=== PATIENT | male | born 1950 | race Caucasian/White ===

== ENCOUNTER 2017-02-05 06:17 | Outpatient (CLI) | payer MEDICARE ==
[~2017-02-05] VITALS: Ht 180.3 cm; Wt 90.7 kg
[~2017-02-05 06:17] MED LIST: ALLP300T PO; COLC0.6T7 PO; DIAZ10TA3 PO; ENAL5TAB PO; GBPN600T PO; GLYB5TAB6 PO; HYDR118S10 PO; METF-380 PO; MIRT15TA6 PO; NIAC100045 PO; PRAV80TA2 PO; SULF1TAB38 PO
== END 2017-02-05 10:40 ==
LOC: PREOP 06:17
PROVIDERS: ATTEND Surgery
DX: Z01.818 Encounter for other preprocedural examination (principal); R19.5 Other fecal abnormalities

== ENCOUNTER 2017-02-09 09:52 | Day surgery (SDC) | payer MEDICARE ==
[~2017-02-09] VITALS: Ht 180.3 cm; Wt 90.7 kg
[2017-02-09] MEDS ORDERED: NS IV 1000 ML 1,000 ML IV STA (10:02)
[2017-02-09] MEDS ORDERED: FLUMAZENIL (ROMAZICON) 0.1 MG/ML 5 ML VIAL INJ PRN (10:15)
[2017-02-09] MEDS ORDERED: NALOXONE 0.4 MG/ML 1 ML (NARCAN) VIAL IVP PRN (10:15)
[2017-02-09] MEDS ORDERED: ATOR10TA66 PO (10:34)
[2017-02-09] MEDS ORDERED: DULO60CA58 PO (10:34)
[2017-02-09] MEDS ORDERED: INSU100I29 SQ (10:34)
[2017-02-09] MEDS ORDERED: GLIM4TAB PO (10:38)
[2017-02-09] MEDS ORDERED: TAMS0.4C2 PO (10:38)
[2017-02-09] MEDS ORDERED: FENO145T20 PO (10:38)
[2017-02-09] MEDS ORDERED: DOXE25CA46 PO (10:38)
[2017-02-09] MEDS ORDERED: INSU100I14 SQ (10:42)
[2017-02-09 10:45] VITALS: BP 175/94
[2017-02-09] MEDS ORDERED: MIDAZOLAM 2 MG/2 ML (VERSED) VIAL ONE (11:06)
[2017-02-09] MEDS ORDERED: fentaNYL INJECTION 100 MCG/2 ML AMP ONE (11:06)
[2017-02-09] MEDS ORDERED: proPOfol 200 MG/20 ML (DIPRIVAN) VIAL IV ONE (11:06)
--- NOTE | 2017-02-09 11:16 | Progress Note-Pre Operative ---
Pre-Operative Progress Note H&P Reviewed The H&P was reviewed, patient examined and no changes noted. Date Seen by Provider: Feb 09, 2017 Time Seen by Provider: 11:15 Date H&P Reviewed: Feb 09, 2017 Time H&P Reviewed: 11:15 Pre-Operative Diagnosis: occult positive stool KRISTINA VITAL DO Feb 09, 2017 11:16 am
[2017-02-09] MEDS ORDERED: ESMOLOL 100 MG/10 ML (BREVIBLOC) VIAL ONE (11:32)
--- NOTE | 2017-02-09 12:08 | Discharge Inst-Simple/Standard ---
Discharge Inst-Standard Patient Instructions/Follow Up Plan of Care/Instructions/FU: Follow up with Dr. Jones in 2 weeks Repeat colonoscopy in 5 years or sooner if changes to current condition Activity as Tolerated: Yes Discharge Diet: No Restrictions GAYLE MORGAN APRN Feb 09, 2017 12:07
[2017-02-09 12:30] VITALS: BP 147/89
[2017-02-09 13:00] VITALS: BP 144/89
[2017-02-09 13:05] VITALS: BP 144/89
--- NOTE | 2017-02-09 13:13 | Progress Note-Post Operative ---
Post-Operative Progess Note Surgeon (s)/Patient Registration Manager (s) Surgeon KRISTINA VITAL DO Patient Registration Manager: na Pre-Operative Diagnosis occult positive stool Post-Operative Diagnosis colon polypx2 Procedure & Operative Findings Date of Procedure 02/09/17 Procedure Performed/Findings colonoscopy with hot bx polypectomy x 2 Anesthesia Type per mda Estimated Blood Loss Estimated blood loss (mL): none Specimens/Packing Specimens Removed ascending colon polyp and descending colon polyp KRISTINA VITAL DO Feb 09, 2017 1:13 pm
--- NOTE | 2017-02-09 20:40 | OPERATIVE REPORT ---
DATE OF SERVICE: 02/09/2017 PREOPERATIVE DIAGNOSIS: Occult positive stool. POSTOPERATIVE DIAGNOSIS: Colon polyps x2. PROCEDURE: Colonoscopy with hot biopsy polypectomy x 2. SURGEON: Kristina Jones DO ANESTHESIA: Per MDA. ESTIMATED BLOOD LOSS: None. COMPLICATIONS: None. SPECIMENS: Ascending and descending colon polyp. INDICATIONS: The patient is a 67-year-old male with recent occult positive stool test. He understood risks and benefits of procedure and wished to proceed with procedure. Consent was signed and on the chart. DESCRIPTION OF PROCEDURE: The patient was taken to endoscopy suite, placed in left lateral recumbent position. Timeout was performed. Digital rectal exam was performed. There were no palpable polyps, masses or ulcerations. Scope was inserted in the rectum, and advanced all the way to the cecum with minimal difficulty. The patient had to be repositioned multiple times in order to procedure due to colon. Once in the cecum, scope was then slowly retracted back. Prep was adequate with irrigation and suction. There were no polyps, masses or ulcerations of the cecum. Within the ascending colon was a small polyp which hot biopsy polypectomy was performed in the ascending colon. The scope was then continuously retracted back. There were no polyps, masses or ulcerations within the transverse colon. In the descending colon, a small polyp was present which hot biopsy polypectomy was performed. Scope was continued to be slowly retracted back. There were no polyps, masses or ulcerations in the sigmoid colon and in the rectum. The scope was also retroflexed in the rectum noting no other pathology. Scope was returned to its normal position, slowly withdrawn until completely removed. RECOMMENDATIONS: The patient will follow up in the office in 2 weeks to discuss pathology results. The patient will need repeat colonoscopy in 5 years. If he has any problems prior to that, he should be reevaluated at that time. Job ID: [id number] DocumentID: [id number] Dictated Date: 02/09/2017 13:16:06 Senior Data Warehouse Architect Date: 02/09/2017 20:01:30 Dictated By: KRISTINA JONES DO
== END 2017-02-09 13:05 | disposition home or self-care (01) ==
LOC: ENDO 09:52
PROVIDERS: ATTEND Surgery
DX: R19.5 Other fecal abnormalities (principal); D12.2 Benign neoplasm of ascending colon; D12.4 Benign neoplasm of descending colon; I10 Essential (primary) hypertension; E11.9 Type 2 diabetes mellitus without complications; Z79.4 Long term (current) use of insulin
CPT/HCPCS: 88305

== ENCOUNTER → 2018-01-10 | Outpatient (CLI) | payer MEDICARE ==
[~2018-01-10] MED LIST changes: +ATOR10TA66 PO; +DOXE25CA46 PO; +DULO60CA58 PO; +FENO145T37 PO; +GLIM4TAB PO; +INSU100I14 SQ; +INSU100I29 SQ; +TAMS0.4C2 PO
--- NOTE | 2018-01-10 11:59 | Diagnostic Imaging Report ---
PROCEDURE: MRI lumbar spine. TECHNIQUE: Multiplanar, multisequence MRI of the lumbar spine was performed without contrast. INDICATION: Low back pain. Comparison is made with prior MRI lumbar spine from 10/13/2007. There is some straightening of the normal lumbar lordotic curvature. Minimal retrolisthesis of L5 on S1 is noted. The vertebral body heights are maintained. No acute compression fracture or geographic marrow lesion is seen. The conus is unremarkable at the L1-2 level. There is significant degenerative disc disease at L5-S1 level with disc space narrowing and desiccation and marginal osteophyte formation. Mild desiccation is also seen at L3-4 level and L4-5 level with mild disc space narrowing. T12-L1: No central canal or neural foraminal stenosis is identified. L1-2: Unremarkable. L2-3: Unremarkable. L3-4: No central canal or neuroforaminal stenosis is identified. L4-5: There is broad-based disc/osteophyte complex flattening the ventral thecal sac. There also appears to be bilateral lateral recess narrowing, greatest on the right with mild bilateral neural foraminal stenosis. Very mild central canal narrowing is also seen. L5-S1: Broad-based disc/osteophyte complex is present producing significant narrowing of the lateral recesses bilaterally. Central canal is patent. Moderate bilateral neural foraminal stenosis is seen. Paraspinous tissues are unremarkable. IMPRESSION: Lower lumbar spondylosis with central canal, lateral recess and neural foraminal narrowing described level by level above. No acute compression fracture is detected. Dictated by: Dictated on workstation # [id number]
== END ==
LOC: RAD 09:59
PROVIDERS: ATTEND Family Medicine
DX: M48.061 Spinal stenosis, lumbar region without neurogenic claudication (principal); M99.73 Connective tissue and disc stenosis of intervertebral foramina of lumbar region; M51.37 Other intervertebral disc degeneration, lumbosacral region; M47.816 Spondylosis without myelopathy or radiculopathy, lumbar region
CPT/HCPCS: 72148

== ENCOUNTER → 2018-03-07 | Outpatient (CLI) | payer MEDICARE ==
--- NOTE | 2018-03-07 13:19 | Diagnostic Imaging Report ---
INDICATION: Cough. COMPARISON: None. FINDINGS: Two views of the chest are obtained. Heart size is normal. The pulmonary vessels appear unremarkable. There is no pneumothorax, mediastinal widening, or pleural fluid. A few scattered calcified granulomata are noted. The lungs are otherwise clear. The osseous structures appear unremarkable. IMPRESSION: No acute abnormality is demonstrated. Dictated by: Dictated on workstation # [id number]
== END ==
LOC: RAD 11:25
PROVIDERS: ATTEND Family Medicine
DX: R05 Cough (principal)
CPT/HCPCS: 71046

== ENCOUNTER → 2018-04-01 | Outpatient (CLI) | payer MEDICARE ==
--- NOTE | 2018-04-01 10:50 | Diagnostic Imaging Report ---
INDICATION: Status post fall with loss of consciousness and headache. TECHNIQUE: Noncontrast brain CT is performed. COMPARISON: There is no previous study for comparison. FINDINGS: There were no extra-axial fluid collections. No intracranial hemorrhage. No intracranial mass or mass effect. No midline shift. The ventricles are normal in size and position. Visualized portions of the orbits and sinuses are clear. There is no calvarial fracture. There is a prominent left parietal scalp hematoma. IMPRESSION: No acute intracranial abnormality. No calvarial fracture. Prominent left parietal scalp hematoma is noted. Dictated by: Dictated on workstation # [id number]
== END ==
LOC: RAD 10:31
PROVIDERS: ATTEND Family Medicine
DX: S00.03XA Contusion of scalp, initial encounter (principal); R55 Syncope and collapse; W19.XXXA Unspecified fall, initial encounter
CPT/HCPCS: 70450

== ENCOUNTER → 2018-10-12 | Outpatient (CLI) | payer MEDICARE ==
--- NOTE | 2018-10-12 11:55 | Diagnostic Imaging Report ---
PROCEDURE: US Bilateral lower extremity arterial. TECHNIQUE: Multiple real-time grayscale images are obtained through both lower extremity arterial systems with color Doppler imaging and color Doppler spectral analysis. INDICATION: Feet and toes turning blue. FINDINGS: Predominantly triphasic waveforms are identified in both lower extremity arterial systems with the exception of dorsalis pedis arteries which show biphasic flow. Velocities appear to be fairly symmetric bilaterally. No velocity elevation or stenosis is seen. There is no occlusion identified. IMPRESSION: Unremarkable bilateral lower extremity arterial Doppler. Dictated by: Dictated on workstation # [id number]
== END ==
LOC: RAD 08:52
PROVIDERS: ATTEND Family Medicine
DX: R23.0 Cyanosis (principal)
CPT/HCPCS: 93925

== ENCOUNTER → 2018-11-08 | Outpatient (CLI) | payer MEDICARE | LOC: CARD 09:19 | PROVIDERS: ATTEND Internal Medicine Cardiovascular Disease | DX: I10 Essential (primary) hypertension (principal); I77.9 Disorder of arteries and arterioles, unspecified; E11.9 Type 2 diabetes mellitus without complications; I73.9 Peripheral vascular disease, unspecified | CPT/HCPCS: 93306 ==

== ENCOUNTER 2018-11-16 07:45 | Day surgery (SDC) | payer MEDICARE ==
[2018-11-16] VITALS (10 sets, daily range): BP systolic 144–183; BP diastolic 77–94
[~2018-11-16] VITALS: Ht 182.9 cm; Wt 88.5 kg
[2018-11-16] MEDS ORDERED: LIDOCAINE 1% INJ 20 ML 20 ML VIAL ONE (07:53)
[2018-11-16] MEDS ORDERED: HEParin 1000 UNIT/ML (10ML VIAL) FOR BOLUS ONE (07:53)
[2018-11-16] MEDS ORDERED: NS IV 1000 ML 3,000 ML ONE (07:54)
[2018-11-16 08:45] LABS: HEMOGLOBIN 14.8 G/DL (13.3-17.7); MEAN PLATELET VOLUME 10.5 FL (7.4-10.4); RED CELL DISTRIBUTION WIDTH 12.9 % (10.0-14.5); WHITE BLOOD COUNT 5.9 10^3/uL (4.3-11.0)
[2018-11-16] MEDS ORDERED: NS IV 1000 ML 1,000 ML IV SCH ×2 (08:45→10:00)
[2018-11-16] MEDS ORDERED: MIDAZOLAM 5 MG/5 ML (VERSED) VIAL ONE (09:02)
[2018-11-16] MEDS ORDERED: fentaNYL INJECTION 100 MCG/2 ML AMP ONE (09:03)
[2018-11-16 09:15] LABS: ALANINE AMINOTRANSFERASE 73 U/L (0-55); ALBUMIN 4.5 GM/DL (3.2-4.5); ALKALINE PHOSPHATASE 79 U/L (40-136); BILIRUBIN,TOTAL 0.4 MG/DL (0.1-1.0); BUN/CREATININE RATIO 18; CALCIUM 9.4 MG/DL (8.5-10.1); CARBON DIOXIDE 24 MMOL/L (21-32); CHLORIDE 101 MMOL/L (98-107); CHOLESTEROL 137 MG/DL (< 200); CREATININE SERUM 1.13 MG/DL (0.60-1.30); GFR ESTIMATED > 60; GLUCOSE 311 MG/DL (70-105); HDL CHOLESTEROL 32 MG/DL (40-60); SODIUM 136 MMOL/L (135-145); TOTAL PROTEIN 6.9 GM/DL (6.4-8.2); TRIGLYCERIDES 302 MG/DL (<150); VLDL CHOLESTEROL 60 MG/DL (5-40)
[2018-11-16] MEDS ORDERED: CLOP75TA28 PO (09:21)
[2018-11-16] MEDS ORDERED: LOSA50TA63 PO (09:22)
[2018-11-16] MEDS ORDERED: ISOS30TA3 PO (09:22)
[2018-11-16] MEDS ORDERED: INSU100V5 SQ (09:22)
[2018-11-16] MEDS ORDERED: MULT-974 PO (09:23)
[2018-11-16] MEDS ORDERED: BUPR100T15 PO (09:23)
[2018-11-16] MEDS ORDERED: LORA10TA7 PO (09:23)
[2018-11-16] MEDS ORDERED: FINA5TAB6 PO (09:24)
[2018-11-16] MEDS ORDERED: VITA100C20 PO (09:25)
[2018-11-16] MEDS ORDERED: BIOT10005 PO (09:25)
[2018-11-16] MEDS ORDERED: NFBIOT1000 PO (09:25)
[2018-11-16] MEDS ORDERED: OMG1KC PO (09:26)
[2018-11-16] MEDS ORDERED: VITA-189 PO (09:26)
[2018-11-16] MEDS ORDERED: TRAZ-190 PO (09:27)
[2018-11-16] MEDS ORDERED: HYDR-3062 PO (09:27)
[2018-11-16] MEDS ORDERED: DOCU100C37 PO (09:28)
[2018-11-16] MEDS ORDERED: DULO60CA58 PO (09:28)
[2018-11-16] MEDS ORDERED: GABA-488 PO (09:29)
[2018-11-16] MEDS ORDERED: ASPI-586 PO (09:29)
--- NOTE | 2018-11-16 09:29 | Cardiac Procedure Note-CS/ASA ---
Pre-Procedure Note Pre-Op Procedure Note H&P Reviewed The H&P was reviewed, patient examined and no changes noted. Date H&P Reviewed: Nov 16, 2018 Time H&P Reviewed: 09:29 Conscious Sedation Pre-Proced Time 09:29 ASA Score 3 For ASA 3 and 4: Consider anesthesia and medical clearance. Also, for patients with a history of failed moderate sedation consider anesthesia. Airway Lungs Heart ASA score ASA 1: a normal healthy patient ASA 2: a patient with a mild systemic disease (mid diabetes, controlled hypertension, obesity x ASA 3: a patient with a severe systemic disease that limits activity (angina , COPD, prior Myocardial infarction) ASA 4: a patient with an incapacitating disease that is a constant threat to life (CHF, renal failure) ASA 5: a moribund patient not expected to survive 24 hrs. (ruptured aneurysm) ASA 6: a declared brain- patient whose organs are being harvested. For emergent operations, add the letter E after the classification Mallampati Classification Grade 3 Sedation Plan Analgesia, Amnesia, Plan communicated to team members, Discussed options with patient/fam, Discussed risks with patient/fam The patient is an appropriate candidate to undergo the planned procedure, sedation, and anesthesia. The patient immediately re-assessed prior to indication. DAGO FOREMAN MD Nov 16, 2018 09:29
--- NOTE | 2018-11-16 09:30 | Diagnostic Imaging Report ---
INDICATION: Hypertension. COMPARISON: 03/07/2018. FINDINGS: Single view of the chest demonstrate stable granulomas in both lung bases. The lungs are otherwise clear. The heart is normal. There is no pneumothorax. Osseous structures normal. IMPRESSION: Negative chest. Dictated by: Dictated on workstation # [id number]
--- NOTE | 2018-11-16 09:33 | NUR ---
Received patient medication list from Rn.
[2018-11-16] MEDS ORDERED: PATIENT MAY USE OWN MEDS, ALL PO SCH (10:00)
--- NOTE | 2018-11-16 10:02 | Discharge Inst-Post CATH ---
Discharge Inst-CATH/EP Post Cardiac Cath/EP D/C Inst Follow Up/Plan Appointment with Dr. Sofia's office in 2-4 weeks CARDIAC CATH DISCHARGE INSTRUCTIONS *Hold Metformin for 48 hours post heart cath. ACTIVITY * Go Home directly and rest. * Limit activity of the leg (or wrist if it was used) for 7 days including aerobics, swimming, jogging, bicycling, etc. * Restrict stair-climbing for 7 days if possible, if not, climb up with your non -cath leg, then bring together on the same step. * Avoid lifting, pushing, pulling or excessive movement of the affected extremity for 7 days. * Customary sexual activity may be resumed after 2 days-use caution not to use a position that strains or causes pain to the affected extremity. * No driving for 24 hours. * NO SMOKING. * Avoid straining for bowel movements for 7 days. * Gentle walking on level ground is allowed. * Returning to work will depend on the type of procedure and the results. Your doctor will discuss this with you. CALL YOUR DOCTOR FOR ANY OF THE FOLLOWING: *If bleeding from the puncture site occurs- Apply gentle pressure to site with clean cloth and call your doctor or EMS. * If a knot or lump forms under the skin, increases in size, or causes pain. * If bruising appears to be worsening or moving further down your leg instead of disappearing. * Temperature above 101 F. CARE OF YOUR GROIN INCISION; * Bruising or purple discoloration of the skin near the puncture site is common. * You may shower only, no bathtub bathing for 5 days. Be careful to avoid slipping as your leg may feel stiff. * If a closure device was used on your femoral artery, please see the attached guide regarding care of the device and your leg. * Leave the dressing on, until removed by office staff. CARE OF YOUR WRIST INCISION; * Bruising or purple discoloration of the skin near the puncture site is common. * You may shower. * DO NOT submerge wrist. * Leave dressing on, until removed by office staff.. DAGO SOFIA MD Nov 16, 2018 10:02
--- NOTE | 2018-11-16 10:07 | Peripheral Report ---
Peripheral Report Physician (s)/Beauty Sales Consultant (s) Physician DAGO FOREMAN MD Pre-Procedure Diagnosis Pre-Procedure Diagnosis: gangrene on the foot, peripheral arterial disease Post-Procedure Note Procedure Start Date: Nov 16, 2018 Name of Procedure: Abdominal aortogram Bilateral lower extremities runoff First order Findings/Procedure Note PROCEDURE NOTE: 68 years old gentleman with history of gangrene on his feet, had ROMA did not show significant abnormality but the waveforms were abnormal, decided to proceed with peripheral angiogram and evaluate his peripheral anatomy After explaining the procedure to the patient, all pros and cons were explained , all questions were answered. The patient signed the consent and then he was placed on the cardiac catheterization laboratory. The patient was placed on the cardiac catheterization laboratory. Groin was prepped SL fashion local anesthesia was used. Sheath placed in the right femoral artery, runoff to the right lower extremity was done through the sheath and pigtail catheter was advanced to the abdominal aorta and abdominal aortogram was done. I advanced a long stork wire through the detailed catheter and exchanged the pigtail catheter into a long straight catheter placed in the left common iliac artery and runoff to the left lower extremity was done. At the end of the procedure sheath was removed, closure device was used FINDINGS: Abdominal aortogram: Normal abdominal aorta, renal arteries are normal, superior and inferior mesenteric arteries are normal, bifurcation is normal Right leg runoff: slow flow, there is no obstructive disease down to the trifurcation, below the trifurcation arteries are smaller with no significant obstructive disease Left leg runoff: Mild disease with good flow down to the foot, there is no significant obstructive disease noted CONCLUSIONS: 1. No significant obstructive disease in his peripheral anatomy, slow flow probably due to small vessel disease nonobstructive disease 2. Normal abdominal aorta 3. Normal renal arteries and mesenteric arteries DISCUSSION AND RECOMMENDATIONS: Medical therapy and conservative management is recommended Anesthesia Type: Conscious Sedation Estimated blood loss (mL): 10 ml Contrast Amount: 23 ml Total Radiation Dose: 162 mGy Post-Procedure Diagnosis Post-operative diagnosis: Gangrene of the foot Peripheral arterial disease Hypertension Hyperlipidemia DAGO FOREMAN MD Nov 16, 2018 10:07
== END 2018-11-16 14:35 | disposition home or self-care (01) ==
LOC: CATH 07:45 → SDC 10:47 → CATH 14:35
PROVIDERS: ATTEND Internal Medicine Cardiovascular Disease
DX: E11.52 Type 2 diabetes mellitus with diabetic peripheral angiopathy with gangrene (principal); I73.9 Peripheral vascular disease, unspecified; I10 Essential (primary) hypertension; E78.5 Hyperlipidemia, unspecified; E11.40 Type 2 diabetes mellitus with diabetic neuropathy, unspecified; Z79.82 Long term (current) use of aspirin; Z79.01 Long term (current) use of anticoagulants
CPT/HCPCS: 36415; 71045; 75630; 80053; 80061; 85027; 85730; 87081; 93005

== ENCOUNTER 2019-04-28 17:33 | Emergency (ER) | payer MEDICARE ==
[~2019-04-28] VITALS: Ht 182.9 cm; Wt 88.5 kg
[~2019-04-28 17:33] MED LIST changes: +ASPI-586 PO; +BIOT10005 PO; +BUPR100T15 PO; +CLOP75TA28 PO; +DOCU100C37 PO; -DULO60CA58 PO; +DULO60CA59 PO; +FINA5TAB6 PO; +GABA-488 PO; +HYDR-3062 PO; +INSU100V5 SQ; +ISOS30TA3 PO; +LORA10TA7 PO; +LOSA50TA63 PO; +MULT-974 PO; +NFBIOT1000 PO; +OMG1KC PO; +TRAZ-190 PO; +VITA-189 PO; +VITA100C20 PO
--- NOTE | 2019-04-28 18:19 | ED Upper Extremity ---
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 He was working on vic upstairs when he slipped and has a sweat and cut the anterior right upper arm on some metal beam. Tetanus is not up-to-date. Onset: just prior to arrival Severity: moderate Pain/Injury Location: right arm Method of Injury: other (laceration) Allergies and Home Medications Allergies Coded Allergies: No Known Drug Allergies (Verified , 02/09/17) Home Medications Aspirin 81 Mg Tablet.dr, 81 MG PO DAILY, (Reported) Biotin 10,000 Mcg Capsule, 10,000 MCG PO DAILY, (Reported) Bupropion HCl 100 Mg Tablet, 100 MG PO DAILY, (Reported) Clopidogrel Bisulfate 75 Mg Tablet, 75 MG PO DAILY, (Reported) Docusate Sodium 100 Mg Capsule, 100 MG PO DAILY PRN for CONSTIPATION-1ST LINE, (Reported) Duloxetine HCl 60 Mg Capsule.dr, 120 MG PO DAILY, (Reported) Finasteride 5 Mg Tablet, 5 MG PO DAILY, (Reported) Gabapentin 300 Mg Capsule, 600 MG PO QID, (Reported) Hydrocodone/Acetaminophen 1 Each Tablet, 1 EACH PO Q8H PRN for PAIN-MODERATE, (Reported) Insulin Determir 1,000 Units/10 Ml Soln, 23 UNITS SQ HS, (Reported) Isosorbide Mononitrate 30 Mg Tab.er.24h, 30 MG PO DAILY, (Reported) Loratadine 10 Mg Tablet, 10 MG PO DAILY, (Reported) Losartan Potassium 50 Mg Tablet, 50 MG PO DAILY, (Reported) Multivitamin 1 Each Tablet, 1 EACH PO DAILY, (Reported) [place] 3 Polyunsat Fatty Acids 1,000 Mg Cap, 1,000 MG PO BID, (Reported) Tamsulosin HCl 0.4 Mg Cap.er.24h, 0.4 MG PO DAILY, (Reported) Trazodone HCl 100 Mg Tablet, 200 MG PO HS, (Reported) Vitamin B Complex 1 Each Tablet, 1 EACH PO DAILY, (Reported) Vitamin E (Dl,Tocopheryl Acet) 100 Unit Capsule, 100 UNIT PO DAILY, (Reported) Patient Home Medication List Home Medication List Reviewed: Yes Review of Systems Constitutional: see HPI EENTM: see HPI Respiratory: no symptoms reported Cardiovascular: no symptoms reported Genitourinary: no symptoms reported Musculoskeletal: no symptoms reported Skin: see HPI Psychiatric/Neurological: No Symptoms Reported Past Dhhjgua-Ywyzma-Zokhqt Hx Patient Social History Alcohol Use: Rarely Uses Recreational Drug Use: No Smoking Status: Never a Smoker 2nd Hand Smoke Exposure: No Recent Foreign Travel: No Contact w/Someone Who Travel: No Recent Infectious Disease Expo: No Recent Hopitalizations: No Immunizations Up To Date Tetanus Booster (TDap): More than 5yrs Date of Pneumonia Vaccine: Jun 08, 2016 Date of Influenza Vaccine: Jun 06, 2018 Seasonal Allergies Seasonal Allergies: Yes Past Medical History Surgeries: Yes Orthopedic Respiratory: No Currently Using CPAP: No Currently Using BIPAP: No Cardiac: Yes Hypertension Neurological: No Neuropathy Reproductive Disorders: No Sexually Transmitted Disease: No HIV/AIDS: No Genitourinary: No Prostate Problems Gastrointestinal: No Chronic Constipation Musculoskeletal: Yes Degenerate Disk Disease, Arthritis, Chronic Back Pain Endocrine: Yes Loss of Vision: Bilateral Hearing Impairment: Bilateral Hearing Aide Cancer: No Did You Recieve Any Treatments: No Psychosocial: Yes Anxiety, PTSD Integumentary: No Blood Disorders: No Adverse Reaction/Blood Tranf: No Physical Exam Vital Signs Vital Signs - First Documented 04/28/19 17:38 Temp 96.6 Pulse 93 Resp 18 B/P (MAP) 160/90 (113) Pulse Ox 97 Capillary Refill : Less Than 3 Seconds Height, Weight, BMI Height: 6'0" Weight: 195lbs. 0.0oz. [id number]; 26.5 BMI Method:Stated General Appearance: WD/WN, no apparent distress HEENT: PERRL/EOMI, normal ENT inspection Neck: non-tender, full range of motion Respiratory: no respiratory distress, no accessory muscle use Shoulder: normal inspection, non-tender Elbow/Forearm: Right, ecchymosis (to the anterior right upper arm there are 2 horizontally oriented superficial lacerations with mild oozing of blood. These measure about 5 cm in length each. Closed with Dermabond. There is an ecchymosis beneath this over the anterior aspect of the biceps.) Procedures/Interventions Wound Location: Upper Extremities Wound Length (cm): 10 Wound's Depth, Shape: linear Wound Explored: clean Other Closure Supply: Wound Adhesive Progress/Results/Core Measures Results/Orders My Orders Orders - MARICARMEN VALDEZ APRN Dipht,Pertuss(Acell),Tet Adult (Boostrix (04/28/19 18:30) Vital Signs/I&O 04/28/19 17:38 Temp 96.6 Pulse 93 Resp 18 B/P (MAP) 160/90 (113) Pulse Ox 97 Blood Pressure Mean: 113 Departure Impression Primary Impression: Laceration of arm Qualified Codes: S41.111A - Laceration without foreign body of right upper arm, initial encounter Disposition: 01 HOME, SELF-CARE Condition: Stable Departure-Patient Inst. Decision time for Depature: 18:21 Referrals: BRENDA FUENTSE DO (PCP/Family) Primary Care Physician Patient Instructions: Laceration Repair With Glue (DC) Add. Discharge Instructions: 1. Return to ER for any concerns 2. Keep an eye on this for any sign of infection such as redness swelling or fev ers. You can shower starting tonight leading water run over this but do not apply any petroleum-based products such as Vaseline and Neosporin or triple antibiotic appointment. All discharge instructions reviewed with patient and/or family. Voiced understanding. MARICARMEN VALDEZ APRN Apr 28, 2019 18:19
[2019-04-28] MEDS ORDERED: TETANUS,DIPTH,PERTUSS P/F (BOOSTRIX) 0.5 ML VIAL IM ONE (18:30)
[2019-04-28 18:34] VITALS: BP 160/90
== END 2019-04-28 18:36 | disposition home or self-care (01) ==
LOC: EDUNIT# 17:33 → ER 17:34
DX: S41.111A Laceration without foreign body of right upper arm, initial encounter (principal); S61.511A Laceration without foreign body of right wrist, initial encounter; I10 Essential (primary) hypertension; G62.9 Polyneuropathy, unspecified; F41.9 Anxiety disorder, unspecified; F43.10 Post-traumatic stress disorder, unspecified; Z87.19 Personal history of other diseases of the digestive system; Z79.82 Long term (current) use of aspirin; Z79.02 Long term (current) use of antithrombotics/antiplatelets; Z79.4 Long term (current) use of insulin; W01.110A Fall on same level from slipping, tripping and stumbling with subsequent striking against sharp glass, initial encounter
CPT/HCPCS: 90715

== ENCOUNTER → 2020-09-23 | Outpatient (CLI) | payer MEDICARE ==
[~2020-09-23] MED LIST changes: +ACHD5005 PO; +FENO145T26 PO; -FENO145T37 PO; -GLIM4TAB PO; +GLIM4TAB5 PO; -HYDR-3062 PO; -TRAZ-190 PO; +TRAZ-227 PO; -VITA100C20 PO; +VITA100C22 PO
--- NOTE | 2020-09-23 16:47 | Diagnostic Imaging Report ---
EXAMINATION: Cervical spine radiographs, 3 views. COMPARISON: None. HISTORY: 70-year-old male, neck pain. FINDINGS: There is grade 1 retrolisthesis of C4 on C5 and also of C5 on C6. There is mild disc height loss at C3-C4 and C4-C5. There is moderate disc height loss at C5-C6. There is no prominent prevertebral soft tissue swelling. The lateral masses of C2 are normally aligned relative to C1. There are predominantly anterior osteophytes at C3-C4, C4-C5, and C5-C6. There is no identified acute fracture of the cervical spine. IMPRESSION: Disc degenerative changes of the cervical spine, most notable at C3-C4, C4-C5, and C5-C6. Dictated by: Dictated on workstation # [id number]
== END ==
LOC: RAD 15:09
PROVIDERS: ATTEND Family Medicine
DX: M47.812 Spondylosis without myelopathy or radiculopathy, cervical region (principal)
CPT/HCPCS: 72040

== ENCOUNTER → 2021-01-07 | Outpatient (CLI) | payer MEDICARE ==
[~2021-01-07] MED LIST changes: -ISOS30TA3 PO; +ISOS30TA82 PO
--- NOTE | 2021-01-07 13:58 | Diagnostic Imaging Report ---
INDICATION: Chronic low back pain. FINDINGS: AP and lateral views of the lumbar spine show normal alignment. There are no compression fractures. There is disc space narrowing at L4-L5 and L5-S1 with vacuum disc phenomena present at L5-S1. IMPRESSION: Advanced degenerative disc changes at L5-S1. Moderate degenerative disc changes at L4-L5. Minimal degenerative disc changes at L3-L4. No acute abnormality is seen. Dictated by: Dictated on workstation # [id number]
== END ==
LOC: RAD 12:35
PROVIDERS: ATTEND Family Medicine
DX: M51.36 Other intervertebral disc degeneration, lumbar region (principal); M51.37 Other intervertebral disc degeneration, lumbosacral region
CPT/HCPCS: 72100

== ENCOUNTER → 2021-03-12 | Outpatient (CLI) | payer MEDICARE ==
--- NOTE | 2021-03-12 16:42 | Diagnostic Imaging Report ---
Indication: Chronic neck pain Comparison: 09/23/2020 Findings: 3 views of the cervical column demonstrate stable diffuse degenerative disc disease and facet arthropathy. There is no traumatic malalignment or fracture. No osseous lesion is seen. Prevertebral soft tissues are normal. Carotid artery calcifications are present. Impression: Stable diffuse degenerative disc disease and facet joint arthropathy. Dictated by: Dictated on workstation # [id number]
== END ==
LOC: RAD 14:55
PROVIDERS: ATTEND Family Medicine
DX: M47.812 Spondylosis without myelopathy or radiculopathy, cervical region (principal); M50.30 Other cervical disc degeneration, unspecified cervical region
CPT/HCPCS: 72040

== ENCOUNTER → 2021-06-05 | Outpatient (CLI) | payer MEDICARE ==
--- NOTE | 2021-06-05 13:12 | Diagnostic Imaging Report ---
Indication: Tenderness in the right breast. Correlation is made with prior mammogram to 10/03/2013. 2-D and 3-D unilateral right diagnostic mammography was performed with CAD. There is some mild fibroglandular tissue in the retroareolar right breast consistent with gynecomastia. Degree of gynecomastia has improved since the study from 2013. No discrete mass or malignant-appearing microcalcifications are seen. There are benign calcifications. The right axilla is unremarkable. IMPRESSION: BI-RADS 0 Mild gynecomastia, improved since the prior mammogram from 2013. No suspicious abnormality is seen. Directed sonographic interrogation of the area of tenderness is recommended and will be performed today. ACR BI-RADS Category 0: Incomplete. (Needs additional imaging evaluation). Result letter will be mailed to the patient. Note: At least 10% of breast cancer is not imaged by mammography. Dictated by: Dictated on workstation # [id number]
== END ==
LOC: RAD 12:13
PROVIDERS: ATTEND Family Medicine
DX: N63.10 Unspecified lump in the right breast, unspecified quadrant (principal); N62 Hypertrophy of breast
CPT/HCPCS: 77065; G0279

== ENCOUNTER → 2021-06-05 | Outpatient (CLI) | payer MEDICARE ==
--- NOTE | 2021-06-05 14:04 | Diagnostic Imaging Report ---
INDICATION: Right breast fullness. CORRELATION is made with diagnostic mammogram earlier same day. Sonographic interrogation of the right breast was performed. No sonographic abnormality is seen. No solid or cystic mass is detected. There is a small lymph node in the right axilla approximately 14 mm in size. IMPRESSION: BI-RADS Category 1 No sonographic abnormality is detected. ACR BI-RADS Category 1: Negative. Result letter will be mailed to the patient. Note: At least 10% of breast cancer is not imaged by mammography. Dictated by: Dictated on workstation # [id number]
== END ==
LOC: RAD 12:30
PROVIDERS: ATTEND Family Medicine
DX: N63.10 Unspecified lump in the right breast, unspecified quadrant (principal)
CPT/HCPCS: 76641

== ENCOUNTER → 2021-06-24 | Outpatient (CLI) | payer MEDICARE | LOC: CARD 10:59 | PROVIDERS: ATTEND Family Medicine | DX: I49.1 Atrial premature depolarization (principal); I45.10 Unspecified right bundle-branch block; I51.7 Cardiomegaly | CPT/HCPCS: 93005 ==

== ENCOUNTER → 2021-08-26 | Outpatient (CLI) | payer MEDICARE | LOC: CARD 13:30 | PROVIDERS: ATTEND Internal Medicine Cardiovascular Disease | DX: I11.9 Hypertensive heart disease without heart failure (principal) | CPT/HCPCS: 93306 ==

== ENCOUNTER → 2021-10-13 | Outpatient (CLI) | payer MEDICARE ==
[~2021-10-13] VITALS: Ht 182 cm; Wt 89.0 kg
[~2021-10-13] MED LIST changes: +REGADENOSON 0.4 MG/5 ML SYR (LEXISCAN) IV ONE
[2021-10-13] MEDS: CATHETER FLUSH 10 ML SYR IV PRN ×2 (07:54→09:29)
[2021-10-13 09:16] VITALS: BP 156/83
--- NOTE | 2021-10-13 12:09 | Cardiology Stress Test Report ---
Stress Test Report Date of Procedure/Referring: Date of Procedure: Oct 13, 2021 PCP Dago Sofia MD Admitting Physician Odell Castillo DO Indications: HTN Baseline Heart Rate: 68 Baseline Blood Pressure: Blood Pressure Systolic: 156 Blood Pressure Diastolic: 83 Baseline Vitals Vital Signs Date Time Temp Pulse Resp B/P (MAP) Pulse Ox O2 Delivery O2 Flow Rate FiO2 10/13/21 09:16 61 18 156/83 (107) 95 Room Air Baseline EKG: Baseline EKG: RBBB Summary After explaining the procedure to the patient, he signed a consent and then brought to the stress nuclear laboratory. Patient received 0.4 mg Lexiscan for stress test, ECG, heart rate and blood pressure were monitored continuously. Resting and stress dose of radio tracer were injected, imaging was acquired and reviewed in short axis, horizontal long axis and vertical long axis views. TID: 1.36 SSS: 19 SDS: 5 EF: 46 1. Patient tolerated Lexiscan well 2. Fixed defect involving the whole anterior wall and anterolateral wall with small area of toby-infarct ischemia 3. Transient ischemic dilatation 1.36 4. Prominent left ventricle with hypokinesia at the anterior wall and anterior septum with ejection fraction 46% DAGO SOFIA MD Oct 13, 2021 12:09
== END ==
LOC: CARD 07:45
PROVIDERS: ATTEND Internal Medicine Cardiovascular Disease
DX: I11.9 Hypertensive heart disease without heart failure (principal); I25.89 Other forms of chronic ischemic heart disease
CPT/HCPCS: 78452; 93017; A9502

== ENCOUNTER 2021-11-05 11:00 | Day surgery (SDC) | payer MEDICARE ==
[2021-11-05] VITALS (8 sets, daily range): BP systolic 119–148; BP diastolic 69–89
[~2021-11-05] VITALS: Ht 182.9 cm; Wt 86.1 kg
[2021-11-05 10:00] LABS: BILIRUBIN,URINE NEGATIVE (NEGATIVE); CLARITY,URINE CLEAR; COLOR,URINE YELLOW; GLUCOSE, URINE (UA) 3+ (NEGATIVE); HEMATOCRIT 47 % (40-54); HEMOGLOBIN 16.1 g/dL (13.3-17.7); KETONES,URINE NEGATIVE (NEGATIVE); LEUKOCYTE ESTERASE ,URINE NEGATIVE (NEGATIVE); MEAN CORPUSCULAR HEMOGLOBIN 31 pg (25-34); MEAN CORPUSCULAR HGB CONC 34 g/dL (32-36); MEAN CORPUSCULAR VOLUME 91 fL (80-99); MEAN PLATELET VOLUME 9.9 fL (9.0-12.2); NITRITE,URINE NEGATIVE (NEGATIVE); PLATELET COUNT 225 10^3/uL (130-400); PROTEIN,URINE NEGATIVE (NEGATIVE); WHITE BLOOD COUNT 6.8 10^3/uL (4.3-11.0)
--- NOTE | 2021-11-05 10:03 | Diagnostic Imaging Report ---
INDICATION: Abn stress test, Abn, EKG, HTN, HLP, DM COMPARISON: 11/16/2018 FINDINGS: Single frontal view of the chest demonstrates normal heart size and pulmonary vascularity. The lungs are well aerated and clear. There is suggestion of 1.1 x 0.9 cm nodule within the lateral right lower lung. No large pleural effusion or pneumothorax is seen. The visualized osseous structures show no acute abnormalities. IMPRESSION: 1. No acute cardiopulmonary process. 2. Findings suspicious for pulmonary nodule in the right lung base. Followup CT chest is recommended. Dictated by: Dictated on workstation # [id number]
[2021-11-05 10:11] LABS: BACTERIA,URINE NEGATIVE /HPF
[2021-11-05 10:15] LABS: INR 1.1 (0.8-1.4); PROTHROMBIN TIME PATIENT 14.2 SEC (12.2-14.7)
[2021-11-05 10:22] LABS: ALANINE AMINOTRANSFERASE 24 U/L (0-55); ALBUMIN 4.6 GM/DL (3.2-4.5); ALKALINE PHOSPHATASE 101 U/L (40-136); BILIRUBIN,TOTAL 0.5 MG/DL (0.1-1.0); BUN/CREATININE RATIO 19; CALCIUM 9.4 MG/DL (8.5-10.1); CARBON DIOXIDE 20 MMOL/L (21-32); CHLORIDE 104 MMOL/L (98-107); CHOLESTEROL 186 MG/DL (< 200); CREATININE SERUM 1.51 MG/DL (0.60-1.30); GFR ESTIMATED 48; GLUCOSE 236 MG/DL (70-105); HDL CHOLESTEROL 31 MG/DL (40-60); POTASSIUM 4.5 MMOL/L (3.6-5.0); SODIUM 138 MMOL/L (135-145); TOTAL PROTEIN 7.7 GM/DL (6.4-8.2); TRIGLYCERIDES 245 MG/DL (<150); VLDL CHOLESTEROL 49 MG/DL (5-40)
[~2021-11-05 11:00] MED LIST changes: +HEParin (CATH LAB) 2,000 ML IV ONE; +LIDOCAINE 1% INJ 50 ML (XYLOCAINE) VIAL ONE; +NS IV 1000 ML 1,000 ML IV SCH; +NS IV 1000 ML 1,000 ML ONE; -REGADENOSON 0.4 MG/5 ML SYR (LEXISCAN) IV ONE
[2021-11-05] MEDS ORDERED: EMPA25TA PO (11:06)
[2021-11-05] MEDS ORDERED: INSU100I14 SQ ×2 (11:06)
[2021-11-05] MEDS ORDERED: ATOR20TA49 PO ×2 (11:06→12:27)
[2021-11-05] MEDS ORDERED: CYPR4TAB41 PO (11:06)
[2021-11-05] MEDS ORDERED: GABA300C PO (11:06)
[2021-11-05] MEDS ORDERED: METF-399 PO ×2 (11:06→12:26)
[2021-11-05] MEDS ORDERED: CYCL10TA25 PO (11:06)
[2021-11-05] MEDS ORDERED: VERAPAMIL 5 MG/2 ML (CALAN) VIAL IV ONE (11:36)
[2021-11-05] MEDS ORDERED: HEParin 1000 UNIT/ML (10ML VIAL) FOR BOLUS ONE (11:37)
[2021-11-05] MEDS ORDERED: fentaNYL INJ 100 MCG/2 ML AMP ONE (11:37)
[2021-11-05] MEDS ORDERED: NITRO DRIP 25000 MCG/D5W 250 ML IV ONE (11:37)
[2021-11-05] MEDS ORDERED: MIDAZOLAM 5 MG/5 ML (VERSED) VIAL ONE (11:37)
--- NOTE | 2021-11-05 12:27 | Discharge Inst-Post CATH ---
Discharge Inst-CATH/EP Problems Reviewed?: Yes Post Cardiac Cath/EP D/C Inst Follow Up/Plan Hold Metformin for [address] Sofia's office in 2 to 4 weeks <b>CARDIAC CATH/EP PROCEDURE DISCHARGE INSTRUCTIONS</b> ACTIVITY * Go Home directly and rest. * Limit activity of the leg (or wrist if it was used) for 7 days including aerobics, swimming, jogging, bicycling, etc. * Restrict stair-climbing for 7 days if possible, if not, climb up with your non-cath leg, then bring together on the same step. * Avoid lifting, pushing, pulling or excessive movement of the affected extremity for 7 days. * Customary sexual activity may be resumed after 2 days-use caution not to use a position that strains or causes pain to the affected extremity. * No driving for 24 hours. * NO SMOKING. * Avoid straining for bowel movements for 7 days. * Gentle walking on level ground is allowed. * Returning to work will depend on the type of procedure and the results. Your doctor will discuss this with you. CALL YOUR DOCTOR FOR ANY OF THE FOLLOWING: *If bleeding from the puncture site occurs- Apply gentle pressure to site with clean cloth and call your doctor or EMS. * If a knot or lump forms under the skin, increases in size, or causes pain. * If bruising appears to be worsening or moving further down your leg instead of disappearing. * Temperature above 101 F. CARE OF YOUR GROIN INCISION; * Bruising or purple discoloration of the skin near the puncture site is common. * You may shower only, no bathtub bathing for 5 days. Be careful to avoid slipping as your leg may feel stiff. * If a closure device was used on your femoral artery, please see the attached guide regarding care of the device and your leg. * Leave dressing on FOR 24 hours. CARE OF YOUR WRIST INCISION; * Bruising or purple discoloration of the skin near the puncture site is common. * You may shower. * DO NOT submerge wrist. * Leave dressing on FOR 24 hours. DAGO SOFIA MD Nov 05, 2021 12:27
--- NOTE | 2021-11-05 12:32 | Cardiac Cath Report ---
Cardiac Cath Report Physician (s)/Business Services Clerk (s) Physician DAGO FOREMAN MD Pre-Procedure Diagnosis Pre-Procedure Diagnosis: Coronary artery disease Post-Procedure Note Procedure Start Date: Nov 05, 2021 Name of Procedure: Left heart catheterization Findings/Procedure Note PROCEDURE NOTE: 71 years old gentleman with history of peripheral arterial disease, hypertension, hyperlipidemia and diabetes mellitus, had an abnormal stress test, scheduled for cardiac catheterization possible PTCA. After explaining the procedure to the patient, all pros and cons were explained, all questions were answered. The patient signed the consent and then he was placed on the cardiac catheterization laboratory. Groin was prepped SL fashion local anesthesia was used. Sheath placed in the right radial artery, Weston catheter was advanced to the left ventricular cavity, pressure was measured, pullback LV to aorta was done, engaged the right and left coronary system, angiogram was done. At the end of the procedure the sheath was removed. Vascular band was used FINDINGS: Hemodynamics LV 104/9, end-diastolic pressure of 9 Aorta 99/58 mean of 39 ANATOMY: Left Main is very short, almost separate ostium of the LAD and circumflex artery Left Anterior Descending is moderate in size, moderate stenosis at the distal LAD at the apex level. The first diagonal artery has moderate to severe stenosis, fairly small artery for intervention Left Circumflex is moderate in size, tortuous artery, the distal circumflex artery has severe stenosis, very small artery, the first obtuse marginal branch has moderate to severe stenosis at the midportion, very small artery. Right Coronary Artery has mild to moderate disease nonobstructive disease LV Gram was not done, pressure was measured CONCLUSION: 1. Moderate to severe distal circumflex artery, mid first obtuse marginal branch and proximal first diagonal artery, fairly small arteries not amendable to intervention 2. Otherwise mild to moderate disease nonobstructive disease 3. Normal left ventricular end-diastolic pressure DISCUSSION AND RECOMMENDATION: Patient was noted to be in atrial flutter during the procedure, started the procedure in sinus rhythm then at the end of the procedure he was in atrial flutter, he has history of palpitation. Stayed in atrial flutter. I will start him on Multaq and oral anticoagulation and planning to do electrical cardioversion in the morning if he did not convert back to sinus rhythm on his own. We discussed the possibility of referral for EP evaluation and ablation Anesthesia Type: Conscious Sedation Estimated blood loss (mL): 15 ml Contrast Amount: 30 ml Total Radiation Dose: 271 mGy Post-Procedure Diagnosis Post-operative diagnosis: Coronary artery disease Peripheral arterial disease Hypertension Hyperlipidemia Diabetes mellitus DAGO FOREMAN MD Nov 05, 2021 12:32
[2021-11-05] MEDS ORDERED: CLOP75TA69 PO (12:33)
[2021-11-05] MEDS: NS IV 1000 ML 1,000 ML IV SCH ×2 (12:40→20:59)
--- NOTE | 2021-11-05 12:40 | Conscious Sedation/ASA ---
Conscious Sedation Pre-Proced Time 10:00 ASA Score 3 For ASA 3 and 4: Consider anesthesia and medical clearance. Also, for patients with a history of failed moderate sedation consider anesthesia. Airway Lungs Heart ASA score ASA 1: a normal healthy patient ASA 2: a patient with a mild systemic disease (mid diabetes, controlled hypertension, obesity x ASA 3: a patient with a severe systemic disease that limits activity (angina, COPD, prior Myocardial infarction) ASA 4: a patient with an incapacitating disease that is a constant threat to life (CHF, renal failure) ASA 5: a moribund patient not expected to survive 24 hrs. (ruptured aneurysm) ASA 6: a declared brain- patient whose organs are being harvested. For emergent operations, add the letter E after the classification Mallampati Classification Grade 3 Sedation Plan Analgesia, Amnesia, Plan communicated to team members, Discussed options with patient/fam, Discussed risks with patient/fam The patient is an appropriate candidate to undergo the planned procedure, sedation, and anesthesia. The patient immediately re-assessed prior to indication. DAGO FOREMAN MD Nov 05, 2021 12:40
[2021-11-05] MEDS ORDERED: DOCUSATE SODIUM 100 MG (COLACE) CAP PO PRN (14:45)
[2021-11-05] MEDS: DRONEDARONE 400 MG TABLET PO SCH ×2 (16:23→20:58)
[2021-11-05] MEDS: ENOXAPARIN 100 MG/1 ML (LOVENOX) SYR SC SCH (16:23)
[2021-11-05] MEDS: HYDROcodone/APAP 5 MG/325 MG (LORTAB) TAB PO PRN (16:31)
[2021-11-05] MEDS ORDERED: CYCLOBENZAPRINE 10 MG (FLEXERIL) TAB PO PRN (17:15)
[2021-11-05] MEDS ORDERED: inSUlin ASPART (NovoLOG) 1 UNIT/0.01 ML (CHARGE PER UNIT) SC SCH (18:00)
--- NOTE | 2021-11-05 18:22 | Tele-ICU Progress Note ---
Progress Note Video assessment done , Hemodynamically stable Available charting reviewed NO TELE-ICU CONSULT REQUESTED CONTINUE TO MONITOR PER USUAL TELE-ICU PROTOCOL No need for Tele-ICU interventions Plans as delineated by bedside physicians / consultants Focused Exam Height, Weight, BMI Height: 6'0" Weight: 195lbs. 0.0oz. [id number]; 26.81 BMI Method:Stated HOANG ARANDA MD Nov 05, 2021 18:22
[2021-11-05] MEDS: CYPROHEPTADINE (PERIACTIN) 4 MG TAB PO SCH ×3 (20:58→21:54)
[2021-11-05] MEDS: OMEGA 3 (FISH OIL) 1000 MG CAP PO SCH (20:58)
[2021-11-05] MEDS ORDERED: traZODone 100 MG (DESYREL) TAB PO SCH (21:00)
[2021-11-05] MEDS ORDERED: GABAPENTIN 300 MG (NEURONTIN) CAP PO SCH (21:00)
[2021-11-05] MEDS ORDERED: NON-FORMULARY MEDICATION 1 EA EA (Insulin Aspart (Novolog Flexpen) 12 UNITS) SQ SCH (21:00)
[2021-11-05] MEDS ORDERED: traZODone 50 MG (DESYREL) TAB ONE (21:06)
[2021-11-05] MEDS ORDERED: traZODone 150 MG (DESYREL) TABLET ONE (21:06)
[2021-11-06] MEDS: HYDROcodone/APAP 5 MG/325 MG (LORTAB) TAB PO PRN (00:41)
[2021-11-06] MEDS: ENOXAPARIN 100 MG/1 ML (LOVENOX) SYR SC SCH (03:36)
[2021-11-06 04:39] LABS: BASOPHILS % (AUTO) 1 % (0-10); EOSINOPHILS # (AUTO) 0.1 10^3/uL (0.0-0.3); EOSINOPHILS % (AUTO) 2 % (0-10); HEMATOCRIT 41 % (40-54); HEMOGLOBIN 13.7 g/dL (13.3-17.7); LYMPHOCYTES # (AUTO) 2.2 10^3/uL (1.0-4.0); LYMPHOCYTES % (AUTO) 38 % (12-44); MEAN CORPUSCULAR HEMOGLOBIN 31 pg (25-34); MEAN CORPUSCULAR HGB CONC 34 g/dL (32-36); MEAN CORPUSCULAR VOLUME 93 fL (80-99); MEAN PLATELET VOLUME 9.7 fL (9.0-12.2); MONOCYTES # (AUTO) 0.8 10^3/uL (0.0-1.0); MONOCYTES % (AUTO) 13 % (0-12); NEUTROPHILS # (AUTO) 2.5 10^3/uL (1.8-7.8); NEUTROPHILS % (AUTO) 44 % (42-75); PLATELET COUNT 196 10^3/uL (130-400); WHITE BLOOD COUNT 5.8 10^3/uL (4.3-11.0)
[2021-11-06 04:58] LABS: ALBUMIN 3.7 GM/DL (3.2-4.5); POTASSIUM 4.3 MMOL/L (3.6-5.0)
[2021-11-06 04:59] LABS: CALCIUM 9.1 MG/DL (8.5-10.1)
[2021-11-06 05:02] LABS: BILIRUBIN,TOTAL 0.3 MG/DL (0.1-1.0)
[2021-11-06 05:04] LABS: CREATININE SERUM 1.4 MG/DL (0.60-1.30); PHOSPHORUS 4.1 MG/DL (2.3-4.7)
[2021-11-06 05:07] LABS: MAGNESIUM 2.3 MG/DL (1.6-2.4)
[2021-11-06] MEDS ORDERED: MAGNESIUM 1 GM/100 ML IVPB 100 ML IV SCH (06:00)
[2021-11-06] MEDS ORDERED: KCL 20 MEQ TAB (K-DUR) PO SCH (06:00)
[2021-11-06] MEDS ORDERED: POTASSIUM CL 10MEQ/50ML IVPB 50 ML IV SCH (06:00)
[2021-11-06] MEDS ORDERED: MULTIVIT W/MINERALS TAB (THERAGRAN M) PO SCH (07:00)
[2021-11-06] MEDS ORDERED: inSUlin ASPART (NovoLOG) 1 UNIT/0.01 ML (CHARGE PER UNIT) SC SCH (07:00)
--- NOTE | 2021-11-06 07:50 | Cardiology Progress Note ---
Subjective Date Seen by Provider: Nov 06, 2021 Time Seen by Provider: 07:49 Subjective/Events-last exam Patient is laying down in bed, back to atrial flutter. Had multiple episodes of atrial fibrillation then sinus rhythm then atrial flutter then atrial fibrillation again. Review of Systems General: No Chills, No Night Sweats, No Fatigue, No Malaise, No Appetite, No Other HEENT: No Head Aches, No Visual Changes, No Eye Pain, No Ear Pain, No Dysphasia, No Sinus Congestion, No Post Nasal Drip, No Sore Throat, No Other Pulmonary: No Dyspnea, No Cough, No Pleuritic Chest Pain, No Other Cardiovascular: No: Chest Pain, Palpitations, Orthopnea, Paroxysmal Noc. Dyspnea, Edema, Lt Headedness, Other Objective-Cardiology Exam Last Set of Vital Signs Vital Signs 11/06/21 11/06/21 06:00 07:00 Pulse 75 Resp 12 B/P (MAP) 154/63 Pulse Ox 98 O2 Delivery Room Air I&O Intake and Output 11/06/21 00:00 Intake Total 550 ml Output Total 1450 ml Balance -900 ml Intake Oral 550 ml Output Urine Total 1450 ml Daily Weight Change No General: Alert, Oriented X3, Cooperative HEENT: Atraumatic, PERRLA Neck: Supple, No JVD, No Thyromegaly Lungs: Clear to Auscultation, Normal Air Movement Heart: Normal S1, Normal S2, No Murmurs, Other (Atrial flutter) Abdomen: Normal Bowel Sounds, Soft, No Tenderness, No Hepatosplenomegaly, No Masses Extremities: No Clubbing, No Cyanosis, No Edema, Normal Pulses, No Tenderness/Swelling Skin: No Rashes, No Breakdown, No Significant Lesion Neuro: Normal Gait, Normal Speech, Strength at 5/5 X4 Ext, Normal Tone, Sensation Intact Psych/Mental Status: Mental Status NL, Mood NL Results Lab Laboratory Tests 11/05/21 09:40 11/06/21 04:25 A/P-Cardiology Admission Diagnosis Coronary artery disease Paroxysmal atrial fibrillation Paroxysmal atrial flutter Hypertension Assessment/Plan Coronary artery disease, moderate to severe disease in smaller branches. Medical therapy is recommended Paroxysmal atrial fibrillation/flutter, had multiple episodes in and out of atrial fibrillation. I started him on Eliquis and Multaq and will follow up as an outpatient Palpitation, probably secondary to atrial fibrillation Transient episode of sinus bradycardia heart rate in the mid 40s at night, probably having underlying sleep apnea. Hyperlipidemia. DAGO FOREMAN MD Nov 06, 2021 07:50
[2021-11-06] MEDS ORDERED: DRON400T6 PO (07:52)
[2021-11-06] MEDS ORDERED: APIX5TAB PO (07:52)
[2021-11-06] MEDS: OMEGA 3 (FISH OIL) 1000 MG CAP PO SCH (08:43)
[2021-11-06] MEDS: DRONEDARONE 400 MG TABLET PO SCH (08:45)
[2021-11-06] MEDS ORDERED: NON-FORMULARY MEDICATION 1 EA EA (Empagliflozin (Jardiance) 25 MG) PO SCH (09:00)
[2021-11-06] MEDS ORDERED: BIOTIN PO SCH (09:00)
[2021-11-06] MEDS ORDERED: ASPIRIN E.C. 81 MG (ECOTRIN) TAB PO SCH (09:00)
[2021-11-06] MEDS ORDERED: NON-FORMULARY MEDICATION 1 EA EA (Insulin Aspart (Novolog Flexpen) 12 UNITS) SQ SCH (09:00)
[2021-11-06] MEDS ORDERED: NON-FORMULARY MEDICATION 1 EA EA (Duloxetine HCl 120 MG) PO SCH (09:00)
[2021-11-06] MEDS ORDERED: DULoxetine 30 MG (CYMBALTA) CAP PO SCH (09:00)
[2021-11-06] MEDS ORDERED: FINASTERIDE (PROSCAR) 5 MG TAB PO SCH (09:00)
[2021-11-06] MEDS ORDERED: EMPAGLIFLOZIN 10 MG TABLET (JARDIANCE) PO SCH (09:00)
[2021-11-06] MEDS ORDERED: LORATADINE (CLARITIN) 10 MG TAB PO SCH (09:00)
[2021-11-06] MEDS ORDERED: GABAPENTIN 300 MG (NEURONTIN) CAP PO SCH (09:00)
[2021-11-06] MEDS: NS IV 1000 ML 1,000 ML IV SCH (09:23)
== END 2021-11-06 10:53 | disposition home or self-care (01) ==
LOC: CATH 11:00 → SDC 12:52 → ICU 15:10 → CATH 11-06 10:53
PROVIDERS: ATTEND Internal Medicine Cardiovascular Disease
DX: I25.10 Atherosclerotic heart disease of native coronary artery without angina pectoris (principal); E11.51 Type 2 diabetes mellitus with diabetic peripheral angiopathy without gangrene; I10 Essential (primary) hypertension; E78.5 Hyperlipidemia, unspecified; I65.29 Occlusion and stenosis of unspecified carotid artery; R42 Dizziness and giddiness; M54.50 Low back pain, unspecified; M25.669 Stiffness of unspecified knee, not elsewhere classified; M25.519 Pain in unspecified shoulder; Z79.891 Long term (current) use of opiate analgesic; Z79.82 Long term (current) use of aspirin; Z79.4 Long term (current) use of insulin; Z79.899 Other long term (current) drug therapy
CPT/HCPCS: 71045; 80053 ×2; 80061; 81000; 82947; 83735; 84100; 85025; 85027; 85610; 85730; 87081; 93005 ×2; 93458; C1894; 36415

== ENCOUNTER → 2021-11-28 | Outpatient (CLI) | payer MEDICARE ==
[~2021-11-28] MED LIST changes: +APIX5TAB PO; +ATOR20TA49 PO; +CLOP75TA69 PO; +CYCL10TA25 PO; +CYPR4TAB41 PO; +DRON400T6 PO; +EMPA25TA PO; +GABA300C PO; -HEParin (CATH LAB) 2,000 ML IV ONE; -LIDOCAINE 1% INJ 50 ML (XYLOCAINE) VIAL ONE; +METF-399 PO; -NS IV 1000 ML 1,000 ML IV SCH; -NS IV 1000 ML 1,000 ML ONE
[2021-11-28 09:15] LABS: CALCIUM 9.3 MG/DL (8.5-10.1); CREATININE SERUM 1.84 MG/DL (0.60-1.30); POTASSIUM 4.9 MMOL/L (3.6-5.0)
== END ==
LOC: LAB 08:36
PROVIDERS: ATTEND Family Medicine
DX: E11.9 Type 2 diabetes mellitus without complications (principal); N28.9 Disorder of kidney and ureter, unspecified
CPT/HCPCS: 36415; 80048

== ENCOUNTER → 2021-12-05 | Outpatient (CLI) | payer MEDICARE ==
[2021-12-05 10:13] LABS: POTASSIUM 4.7 MMOL/L (3.6-5.0)
[2021-12-05 10:14] LABS: CALCIUM 9.4 MG/DL (8.5-10.1)
[2021-12-05 10:18] LABS: CREATININE SERUM 1.46 MG/DL (0.60-1.30)
== END ==
LOC: LAB 09:44
PROVIDERS: ATTEND Family Medicine
DX: N28.9 Disorder of kidney and ureter, unspecified (principal)
CPT/HCPCS: 36415; 80048

== ENCOUNTER → 2021-12-12 | Outpatient (CLI) | payer MEDICARE ==
[2021-12-12 10:41] LABS: CALCIUM 9.6 MG/DL (8.5-10.1); CREATININE SERUM 1.14 MG/DL (0.60-1.30); POTASSIUM 4.6 MMOL/L (3.6-5.0)
== END ==
LOC: LAB 09:49
PROVIDERS: ATTEND Family Medicine
DX: N28.9 Disorder of kidney and ureter, unspecified (principal)
CPT/HCPCS: 36415; 80048

== ENCOUNTER → 2021-12-15 | Outpatient (CLI) | payer MEDICARE ==
[~2021-12-15] MED LIST changes: +CATHETER FLUSH 10 ML SYR IV PRN; +HOLD METFORMIN - RECEIVED CONTRAST 20 ML VIAL IV SCH; +IOHEXOL 350 MG/ML 100 ML (OMNIPAQUE 350) VIAL IV ONE; +NS 100 ML (IVPB) BAG IV ONE
--- NOTE | 2021-12-15 13:30 | Diagnostic Imaging Report ---
PROCEDURE: CT chest with contrast only. TECHNIQUE: Multiple contiguous axial images were obtained through the chest after administration of intravenous contrast. Auto Exposure Controls were utilized during the CT exam to meet ALARA standards for radiation dose reduction. INDICATION: Lung cancer. COMPARISON: I have no priors. FINDINGS: There are no findings of pulmonary edema or focal pneumonia. Some very mild right apical subpleural scarring laterally and posteriorly, chronic. There is no axillary, hilar, or mediastinal lymphadenopathy. The thoracic aorta is nonaneurysmal. There is extensive atherosclerotic vascular calcifications at the left subclavian takeoff as well as coronary artery atherosclerotic vascular calcifications. The aorta is nonaneurysmal. Circumscribed benign-appearing mass with central calcification and some peripheral fat composition in the right lower lobe lung at 11.2 x 8.5 mm. There is densely calcified juxtapleural granuloma in the right lower lobe anteroinferiorly. No suspicious lung mass. Some mild tracheobronchomegaly. Upper abdomen is nonacute. IMPRESSION: 1. Benign-appearing pulmonary nodules. Extensive atherosclerotic vascular calcifications without thoracic aneurysm. No lymphadenopathy, pneumonia, edema, or pleural fluid. 2. No acute-appearing abnormality. No findings to suggest lung cancer. Dictated by: Dictated on workstation # [id number]
== END ==
LOC: RAD 11:59
PROVIDERS: ATTEND Family Medicine
DX: R19.8 Other specified symptoms and signs involving the digestive system and abdomen (principal)
CPT/HCPCS: 71260

== ENCOUNTER → 2021-12-23 | Outpatient (CLI) | payer MEDICARE ==
[~2021-12-23] MED LIST changes: -CATHETER FLUSH 10 ML SYR IV PRN; -HOLD METFORMIN - RECEIVED CONTRAST 20 ML VIAL IV SCH; -IOHEXOL 350 MG/ML 100 ML (OMNIPAQUE 350) VIAL IV ONE; -NS 100 ML (IVPB) BAG IV ONE
--- NOTE | 2021-12-23 10:40 | Diagnostic Imaging Report ---
CLINICAL INDICATION: Patient with neck pain. EXAM: MRI of the cervical spine performed without IV contrast. Sequences include sagittal T2, sagittal T1, sagittal T2 fat-sat, and axial T2. COMPARISON: X-ray of the cervical spine dated 03/12/2021. FINDINGS: There is no acute cervical spine fracture. There are Modic type II degenerative signal changes involving the C4-C5 endplates. Limited visualization of the posterior fossa shows no significant abnormality. There is deformity of the cervical cord seen at the C3 through C6 level. There is no definite abnormal cord signal. There is no significant paraspinal soft tissue abnormality. There are hypertrophic spurs throughout the cervical spine and facet arthropathy. C1-C2: There are hypertrophic spurs involving the atlantoodontoid interval. There is no significant central canal narrowing. C2-C3: There is moderate left facet arthropathy/hypertrophy and mild right facet arthropathy. There is mild right neuroforaminal narrowing. There is no significant central canal or left neuroforaminal narrowing. C3-C4: There is a diffuse disk bulge with mild loss of disk space height. There are hypertrophic uncinate spurs and posterior disk spurs. There is moderate left facet arthropathy/hypertrophy and mild right facet arthropathy. There is moderate to severe central canal stenosis. There is severe bilateral neuroforaminal narrowing. C4-C5: There is a grade 1 retrolisthesis at C4-C5. There is a diffuse disk bulge with moderate loss of disk space height. There are hypertrophic posterior disk spurs and bilateral uncinate spurs. There is moderate left facet arthropathy and mild right facet arthropathy. There is severe central canal stenosis and severe bilateral neuroforaminal narrowing. C5-C6: There is a diffuse disk bulge and moderate loss of disk space height. There are hypertrophic spurs posteriorly and bilateral uncinate spurs. There is severe central canal stenosis and severe bilateral neuroforaminal narrowing. C6-C7: There are small posterior disk spurs. There is ligamentum flavum buckling and moderate bilateral facet arthropathy. There is moderate to severe central canal stenosis. There is mild to moderate right neuroforaminal narrowing and moderate to severe left neuroforaminal narrowing. C7-T1: Unremarkable. IMPRESSION: 1: There is no acute cervical spine fracture. 2: There is severe multilevel cervical spine degenerative disk disease as described above. Dictated by: Dictated on workstation # [id number]
== END ==
LOC: RAD 08:45
PROVIDERS: ATTEND Family Medicine
DX: M50.30 Other cervical disc degeneration, unspecified cervical region (principal)
CPT/HCPCS: 72141

== ENCOUNTER 2022-03-27 07:00 | Day surgery (SDC) | payer MEDICARE ==
[~2022-03-27] VITALS: Ht 182.9 cm; Wt 93.7 kg
[2022-03-27] MEDS ORDERED: NS IV 1000 ML 1,000 ML ONE (07:06)
[2022-03-27] MEDS ORDERED: NS IV 1000 ML 1,000 ML IV ONE (07:15)
[2022-03-27] MEDS ORDERED: APIX5TAB PO (07:29)
[2022-03-27 07:31] LABS: HEMATOCRIT 44 % (40-54); HEMOGLOBIN 14.5 g/dL (13.3-17.7); MEAN CORPUSCULAR HEMOGLOBIN 30 pg (25-34); MEAN CORPUSCULAR HGB CONC 33 g/dL (32-36); MEAN CORPUSCULAR VOLUME 92 fL (80-99); MEAN PLATELET VOLUME 10.1 fL (9.0-12.2); PLATELET COUNT 201 10^3/uL (130-400)
[2022-03-27 07:32] LABS: BILIRUBIN,URINE NEGATIVE (NEGATIVE); CLARITY,URINE CLEAR; COLOR,URINE YELLOW; GLUCOSE, URINE (UA) 3+ (NEGATIVE); KETONES,URINE NEGATIVE (NEGATIVE); LEUKOCYTE ESTERASE ,URINE NEGATIVE (NEGATIVE); NITRITE,URINE NEGATIVE (NEGATIVE); PROTEIN,URINE NEGATIVE (NEGATIVE)
[2022-03-27 07:40] LABS: BACTERIA,URINE NEGATIVE /HPF
[2022-03-27 07:43] LABS: INR 1.2 (0.8-1.4); PROTHROMBIN TIME PATIENT 15.9 SEC (12.2-14.7)
[2022-03-27] MEDS ORDERED: LIDO700A45 TP (07:44)
[2022-03-27] MEDS ORDERED: EMPA25TA PO (07:44)
[2022-03-27] MEDS ORDERED: ACHD5005 PO (07:44)
[2022-03-27] MEDS ORDERED: LORA10TA7 PO (07:44)
[2022-03-27] MEDS ORDERED: OMEGA-3 PO (07:44)
[2022-03-27] MEDS ORDERED: INSU100I14 SQ ×3 (07:44)
[2022-03-27] MEDS ORDERED: CLOP75TA69 PO (07:44)
[2022-03-27] MEDS ORDERED: CYPR4TAB41 PO (07:44)
[2022-03-27] MEDS ORDERED: MULT-1136 PO (07:44)
[2022-03-27] MEDS ORDERED: TMSL.4C PO (07:44)
[2022-03-27] MEDS ORDERED: FINA5TAB6 PO (07:44)
[2022-03-27] MEDS ORDERED: DULO60CA59 PO (07:44)
[2022-03-27] MEDS ORDERED: CYCL10TA25 PO (07:44)
[2022-03-27] MEDS ORDERED: ATOR20TA66 PO (07:44)
[2022-03-27] MEDS ORDERED: ASPI-1238 PO (07:44)
[2022-03-27] MEDS ORDERED: PANT40TA52 PO (07:44)
[2022-03-27] MEDS ORDERED: INSU100I29 SQ (07:44)
[2022-03-27] MEDS ORDERED: BIOT10005 PO (07:44)
[2022-03-27] MEDS ORDERED: GABA300C PO ×2 (07:44)
[2022-03-27] MEDS ORDERED: METF-479 PO (07:44)
[2022-03-27] MEDS ORDERED: DIPH25CA48 PO (07:44)
[2022-03-27] MEDS ORDERED: TRAZ-227 PO (07:44)
[2022-03-27 07:53] LABS: ALBUMIN 4.1 GM/DL (3.2-4.5); BILIRUBIN,TOTAL 0.3 MG/DL (0.1-1.0); CALCIUM 9.3 MG/DL (8.5-10.1); CREATININE SERUM 1.48 MG/DL (0.60-1.30); POTASSIUM 4.5 MMOL/L (3.6-5.0); TOTAL PROTEIN 6.8 GM/DL (6.4-8.2)
[2022-03-27] MEDS ORDERED: proPOfol 200 MG/20 ML (DIPRIVAN) VIAL IV ONE (08:15)
[2022-03-27 09:09] VITALS: BP 126/100
--- NOTE | 2022-03-27 09:09 | Conscious Sedation/ASA ---
Conscious Sedation Pre-Proced Time 09:09 ASA Score 3 For ASA 3 and 4: Consider anesthesia and medical clearance. Also, for patients with a history of failed moderate sedation consider anesthesia. Airway Lungs Heart ASA score ASA 1: a normal healthy patient ASA 2: a patient with a mild systemic disease (mid diabetes, controlled hypertension, obesity x ASA 3: a patient with a severe systemic disease that limits activity (angina, COPD, prior Myocardial infarction) ASA 4: a patient with an incapacitating disease that is a constant threat to life (CHF, renal failure) ASA 5: a moribund patient not expected to survive 24 hrs. (ruptured aneurysm) ASA 6: a declared brain- patient whose organs are being harvested. For emergent operations, add the letter E after the classification Mallampati Classification Grade 3 Sedation Plan Analgesia, Amnesia, Plan communicated to team members, Discussed options with patient/fam, Discussed risks with patient/fam The patient is an appropriate candidate to undergo the planned procedure, sedation, and anesthesia. The patient immediately re-assessed prior to indication. DAGO FOREMAN MD Mar 27, 2022 09:09
[2022-03-27 09:16] VITALS: BP 159/74
--- NOTE | 2022-03-27 09:21 | Anesthesia-General Post-Op ---
MAC Patient Condition Mental Status/LOC: Same as Preop Cardiovascular: Satisfactory Nausea/Vomiting: Absent Respiratory: Satisfactory Pain: Controlled Complications: Absent Post Op Complications Complications None Follow Up Care/Instructions Patient Instructions None needed. Anesthesiology Discharge Order Discharge Order Patient is doing well, no complaints, stable vital signs, no apparent adverse anesthesia problems. No complications reported per nursing. MARIE JACKSON CRNA Mar 27, 2022 09:21
[2022-03-27 09:26] VITALS: BP 119/67
[2022-03-27 09:45] VITALS: BP 130/76
[2022-03-27 10:00] VITALS: BP 133/80
--- NOTE | 2022-03-27 10:12 | Cardioversion ---
Cardioversion PROCEDURE PHYSICIAN: Dago Sofia DATE OF PROCEDURE: 03/27/22 DIRECT EXTERNAL ELECTRICAL CARDIOVERSION: Indications: Atrial flutter Preoperative diagnoses: Atrial flutter Postoperative diagnosis: Sinus rhythm, Successful Electrical Cardioversion History: 72-year-old gentleman with history of paroxysmal atrial fibrill ation/flutter, underwent ablation in January 2022, seen in the office back in atrial flutter. He was scheduled for electrical cardioversion Anesthesia: By Anesthesia services Complications: None Specimen: None Contrast: 0 Flouroscopy: none Procedure Details: The patient was brought the label drier after informed consent was taken, all the risks and complications were explained including the risk of stroke. Electrical cardioversion was carried out with anesthesia support with propofol. 120 joules of synchronized shock was delivered through external patches which promptly restored sinus rhythm. The patient tolerated the procedure well. Conclusions: Successful electrical cardioversion in terminating atrial flutter Final Diagnosis: Paroxysmal atrial fibrillation Paroxysmal atrial flutter Cardiac pacemaker Hypertension DAGO SOFIA MD Mar 27, 2022 10:12
[2022-03-27 10:15] VITALS: BP 136/72
[2022-03-27] MEDS ORDERED: APIXABAN 5 MG (ELIQUIS) TABLET PO ONE (10:15)
--- NOTE | 2022-03-27 10:26 | Discharge Inst-Post CATH ---
Discharge Inst-CATH/EP Problems Reviewed?: Yes Post Cardiac Cath/EP D/C Inst Follow Up/Plan Appointment with Dr. Sofia's office in 1 to 2 weeks <b>CARDIAC CATH/EP PROCEDURE DISCHARGE INSTRUCTIONS</b> ACTIVITY * Go Home directly and rest. * Limit activity of the leg (or wrist if it was used) for 7 days including aer obics, swimming, jogging, bicycling, etc. * Restrict stair-climbing for 7 days if possible, if not, climb up with your non-cath leg, then bring together on the same step. * Avoid lifting, pushing, pulling or excessive movement of the affected extremi ty for 7 days. * Customary sexual activity may be resumed after 2 days-use caution not to use a position that strains or causes pain to the affected extremity. * No driving for 24 hours. * NO SMOKING. * Avoid straining for bowel movements for 7 days. * Gentle walking on level ground is allowed. * Returning to work will depend on the type of procedure and the results. Your doctor will discuss this with you. CALL YOUR DOCTOR FOR ANY OF THE FOLLOWING: *If bleeding from the puncture site occurs- Apply gentle pressure to site with clean cloth and call your doctor or EMS. * If a knot or lump forms under the skin, increases in size, or causes pain. * If bruising appears to be worsening or moving further down your leg instead of disappearing. * Temperature above 101 F. CARE OF YOUR GROIN INCISION; * Bruising or purple discoloration of the skin near the puncture site is common. * You may shower only, no bathtub bathing for 5 days. Be careful to avoid slipping as your leg may feel stiff. * If a closure device was used on your femoral artery, please see the attached guide regarding care of the device and your leg. * Leave dressing on FOR 24 hours. CARE OF YOUR WRIST INCISION; * Bruising or purple discoloration of the skin near the puncture site is common. * You may shower. * DO NOT submerge wrist. * Leave dressing on FOR 24 hours. DAGO SOFIA MD Mar 27, 2022 10:26
== END 2022-03-27 10:43 | disposition home or self-care (01) ==
LOC: CATH 07:00
PROVIDERS: ATTEND Internal Medicine Cardiovascular Disease
DX: I48.92 Unspecified atrial flutter (principal); I48.0 Paroxysmal atrial fibrillation; I10 Essential (primary) hypertension; I25.10 Atherosclerotic heart disease of native coronary artery without angina pectoris; R00.1 Bradycardia, unspecified; E78.5 Hyperlipidemia, unspecified; E11.51 Type 2 diabetes mellitus with diabetic peripheral angiopathy without gangrene; I65.29 Occlusion and stenosis of unspecified carotid artery; M54.9 Dorsalgia, unspecified; M25.569 Pain in unspecified knee; M25.519 Pain in unspecified shoulder; R42 Dizziness and giddiness; Z28.310 Unvaccinated for COVID-19; Z95.0 Presence of cardiac pacemaker; Z85.118 Personal history of other malignant neoplasm of bronchus and lung; Z79.82 Long term (current) use of aspirin; Z79.4 Long term (current) use of insulin; Z79.84 Long term (current) use of oral hypoglycemic drugs; Z79.01 Long term (current) use of anticoagulants
CPT/HCPCS: 36415; 80053; 80061; 81000; 85027; 85610; 85730; 87081; 92960; 93005

== ENCOUNTER 2022-07-04 17:04 | Observation (INO) | payer MEDICARE ==
[~2022-07-04] VITALS: Ht 182.8 cm; Wt 89.2 kg
[~2022-07-04 17:04] MED LIST changes: +ASPI-1238 PO; +ATOR20TA66 PO; +DIPH25CA48 PO; +LIDO700A45 TP; +METF-479 PO; +MULT-1136 PO; +OMEGA-3 PO; +PANT40TA52 PO; +TMSL.4C PO
--- NOTE | 2022-07-04 18:37 | ED Syncope ---
General Chief Complaint: Dizziness/Syncope Stated Complaint: FALL Nursing Triage Note: PASSED OUT THIS AFTERNOON CAUSING A FALL HITTING THE BACK OF HIS HEAD. WAS HOME ALONE AT THE TIME. WOKE UP AND CALLED HIS . Source of Information: Patient, Spouse ( TRIES TO DO ALL TALKING FOR PT) History of Present Illness Date Seen by Provider: Jul 04, 2022 Time Seen by Provider: 18:12 Initial Comments PT ARRIVES VIA POV WITH --SENT HERE FROM [facility] PT WAS AT HOME BY HIMSELF THIS AFTERNOON AROUND 1500 ( HAD GONE TO THE STORE), AND WAS IN THE KITCHEN, AND GOT LIGHTHEADED AND PASSED OUT, HITTING THE BACK OF HIS HEAD ON THE FLOOR, AND HITTING HIS LEFT HAND AND WRIST ON THE COUNTER. DOES NOT KNOW HOW LONG HE WAS PASSED OUT, BUT THINKS IT WAS NOT FOR VERY LONG. STATES CALLED HIS WHEN HE CAME TO. THEY WENT TO [facility] AND HAD EKG DONE, AND GLUE WAS PLACED TO THE BACK OF HIS SCALP OVER THE WOUND, THEN SENT HERE PT STATES "I GET LIGHTHEADED EVERY NOW AND THEN AND SOMETIMES I PASS OUT" STATES HE GETS LIGHTHEADED FAIRLY OFTEN, BUT NORMALLY SITS DOWN AND PUTS HIS HEAD BETWEEN HIS KNEES UNTIL IT PASSES. HE HAS ACTUALLY PASSED OUT "2 OR 3 TIMES" IN THE PAST--HE NEVER SOUGHT CARE AFTER THOSE EPISODES OF SYNCOPE. DENIES FEELING LIGHTHEADED AT THIS TIME PT C/O MILD HEADACHE TO THE BACK OF HIS HEAD AND NECK. NO VISION CHANGES NO PARESTHESIAS OR MOTOR DEFICITS NO PALPITATIONS NO CHEST PAIN NO SHORTNESS OF BREATH NO SWEATS NO NAUSEA/VOMITING/DIARRHEA/ABDOMINAL PAIN NO URINARY SYMPTOMS NO FEVER'/SWEATS/CHILLS STATES HE HAS HAD MUCH "MALAISE" FOR THE LAST WEEK OR SO--NO ENERGY STATES HE HAS COUGHING AND CONGESTION IN THE MORNINGS. STATES THIS IS FAIRLY NORMAL FOR HIM PT IS NOT COVID OR FLU VACCINATED BOTH HE AND HAD COVID IN MID MARCH--HOME TEST WAS POSITIVE ON 04/10/22. DID NOT SEEK CARE, NO TREATMENT. PT HAS HISTORY OF ATRIAL FIBRILLATION/ATRIAL FLUTTER, AND IS ON PLAVIX. PT HAS HAD CARDIOVERSION, CARDIAC ABLATION, LOOP RECORDER AND NOW HAS A PACEMAKER PT IS ALSO INSULIN DEPENDENT DIABETIC. BLOOD SUGAR WAS CHECKED AT 1555 TODAY, AND WAS 98. PT HAS TAKEN ALL OF HIS MEDICATION TODAY, EXCEPT NIGHT TIME MEDICATIONS. Allergies and Home Medications Allergies Coded Allergies: No Known Drug Allergies (Verified , 02/09/17) Patient Home Medication List Apixaban (Eliquis) 5 Mg Tablet, 5 MG PO BID, (Reported) Entered as Reported by: CARLITOS MICHAEL on 03/27/22728 Aspirin (Aspirin EC) 81 Mg Tablet.dr, 81 MG PO DAILY, (Reported) Entered as Reported by: CARLITOS MICHAEL on 03/27/22743 Atorvastatin Calcium (Atorvastatin Calcium) 20 Mg Tablet, 20 MG PO EVENING, (Reported) Entered as Reported by: CARLITOS MICHAEL on 03/27/22743 Biotin (Biotin) 10,000 Mcg Capsule, 30,000 MCG PO DAILY, (Reported) Entered as Reported by: CARLITOS MICHAEL on 03/27/22743 Clopidogrel Bisulfate (Plavix) 75 Mg Tablet, 75 MG PO EVENING, (Reported) Entered as Reported by: CARLITOS MICHAEL on 03/27/22743 Cyclobenzaprine HCl (Cyclobenzaprine HCl) 10 Mg Tablet, 10 MG PO PRN PRN for MUSCLE ACHES, (Reported) Entered as Reported by: CARLITOS MICHAEL on 03/27/22743 Cyproheptadine HCl (Cyproheptadine HCl) 4 Mg Tablet, 4 MG PO HS, (Reported) Entered as Reported by: CARLITOS MICHAEL on 03/27/22743 Diphenhydramine HCl (Diphenhydramine HCl) 25 Mg Capsule, 50 MG PO HS, (Reported) Entered as Reported by: CARLITOS MICHAEL on 03/27/22743 Duloxetine HCl (Duloxetine HCl) 60 Mg Capsule.dr, 120 MG PO DAILY, (Reported) Entered as Reported by: CARLITOS MICHAEL on 03/27/22743 Empagliflozin (Jardiance) 25 Mg Tablet, 25 MG PO, (Reported) Entered as Reported by: CARLITOS MICHAEL on 03/27/22743 Finasteride (Finasteride) 5 Mg Tablet, 5 MG PO EVENING, (Reported) Entered as Reported by: CARLITOS MICHAEL on 03/27/22743 Gabapentin (Neurontin) 300 Mg Capsule, 1,200 MG PO AM, (Reported) Entered as Reported by: CARLITOS MICHAEL on 03/27/22743 Gabapentin (Neurontin) 300 Mg Capsule, 1,500 MG PO EVENING, (Reported) Entered as Reported by: CARLITOS MICHAEL on 03/27/22743 Hydrocodone/Acetaminophen (Hydrocodone-Acetamin 5-325 mg) 5 Mg-325 Mg Tablet, 1 TAB PO PRN PRN for PAIN-MODERATE (5-7), (Reported) Entered as Reported by: CARLITOS MICHAEL on 03/27/22743 Insulin Aspart (Novolog Flexpen) 100 Unit/Ml (3 Ml) Solution, 18 UNITS SQ EVENING, (Reported) Entered as Reported by: CARLITOS MICHAEL on 03/27/22743 Insulin Aspart (Novolog Flexpen) 100 Unit/Ml (3 Ml) Solution, 18 UNITS SQ AM, (Reported) Entered as Reported by: CARLITOS MICHAEL on 03/27/22743 Insulin Aspart (Novolog Flexpen) 100 Unit/Ml (3 Ml) Solution, 16 UNITS SQ LUNCHTIME, (Reported) Entered as Reported by: CARLITOS MICHAEL on 03/27/22743 Insulin Detemir (Levemir Flextouch) 100 Unit/Ml (3 Ml) Insuln.pen, 42 UNIT SQ HS, (Reported) Entered as Reported by: CARLITOS MICHAEL on 03/27/22743 Lidocaine (Lidocaine 5% Patch) 5 % Adh..patch, 1 EACH TP PRN PRN for BACK PAIN, (Reported) Entered as Reported by: CARLITOS MICHAEL on 03/27/22743 Loratadine (Loratadine) 10 Mg Tablet, 10 MG PO DAILY, (Reported) Entered as Reported by: CARLITOS MICHAEL on 03/27/22743 Metformin HCl (Metformin HCl ER) 1,000 Mg Tab.er.24, 1,000 MG PO EVENING, (Reported) Entered as Reported by: CARLITOS MICHAEL on 03/27/22743 Multivitamin (Multivitamin) 1 Each Tablet, 1 EACH PO DAILY, (Reported) Entered as Reported by: CARLITOS MICHAEL on 03/27/22743 Pantoprazole Sodium (Pantoprazole Sodium) 40 Mg Tablet.dr, 40 MG PO BID, (Reported) Entered as Reported by: CARLITOS MICHAEL on 03/27/22743 Tamsulosin HCl (Flomax) 0.4 Mg Cap, 0.8 MG PO EVENING, (Reported) Entered as Reported by: CARLITOS MICHAEL on 03/27/22743 Trazodone HCl (Trazodone HCl) 100 Mg Tablet, 500 MG PO HS, (Reported) Entered as Reported by: CARLITOS MICHAEL on 03/27/22743 [Steward-3] , 300 MG PO BID, (Reported) Entered as Reported by: CARLITOS MICHAEL on 03/27/22743 Past Iyxizbv-Eunosl-Khrqbv Hx Patient Social History Tobacco Use?: No Use of E-Cig and/or Vaping dev: No Substance use?: No Alcohol Use?: Yes Alcohol Frequency: Rarely Pt feels they are or have been: No Immunizations Up To Date Tetanus Booster (TDap): More than 5yrs Influenza Vaccine Up-to-Date: No; Not Current Seasonal Allergies Seasonal Allergies: Yes Past Medical History Surgery/Hospitalization HX: IDDM, NEUROPATHY SX:PACEMAKER, ABLASION, CARDIOVERSION, Surgeries: Yes Orthopedic, Pacemaker Respiratory: No Currently Using CPAP: No Currently Using BIPAP: No Cardiac: Yes Hypertension Neurological: No Neuropathy Reproductive Disorders: No Sexually Transmitted Disease: No HIV/AIDS: No Genitourinary: No Prostate Problems Gastrointestinal: No Chronic Constipation Musculoskeletal: Yes Degenerate Disk Disease, Arthritis, Chronic Back Pain Endocrine: Yes Loss of Vision: Bilateral Hearing Impairment: Bilateral Hearing Aide Cancer: No Did You Recieve Any Treatments: No Psychosocial: Yes Anxiety, PTSD Integumentary: No Blood Disorders: No Adverse Reaction/Blood Tranf: No Physical Exam Vital Signs Vital Signs - First Documented 07/04/22 17:18 Temp 36.9 Pulse 67 Resp 18 B/P (MAP) 130/72 (91) Pulse Ox 97 O2 Delivery Room Air Capillary Refill : Less Than 3 Seconds Height, Weight, BMI Height: 6'0" Weight: 195lbs. 0.0oz. 88.516631gw; 27.00 BMI Method:Stated Focused Exam Lactate Level 07/04/22 18:34: Lactic Acid Level 0.81 Lactic Acid Level Laboratory Tests Test 07/04/22 18:34 Lactic Acid Level 0.81 MMOL/L (0.50-2.00) Progress/Results/Core Measures Results/Orders Lab Results Laboratory Tests Test 07/04/22 18:34 07/04/22 18:41 07/04/22 18:44 07/04/22 18:54 Range/Units White Blood Count 8.5 4.3-11.0 10^3/uL Red Blood Count 4.58 4.30-5.52 10^6/uL Hemoglobin 13.9 13.3-17.7 g/dL Hematocrit 42 40-54 % Mean Corpuscular Volume 91 80-99 fL Mean Corpuscular Hemoglobin 30 25-34 pg Mean Corpuscular Hemoglobin Concent 34 32-36 g/dL Red Cell Distribution Width 14.0 10.0-14.5 % Platelet Count 245 130-400 10^3/uL Mean Platelet Volume 10.0 9.0-12.2 fL Immature Granulocyte % (Auto) 4 % Neutrophils (%) (Auto) 68 42-75 % Lymphocytes (%) (Auto) 18 12-44 % Monocytes (%) (Auto) 8 0-12 % Eosinophils (%) (Auto) 1 0-10 % Basophils (%) (Auto) 1 0-10 % Neutrophils # (Auto) 5.8 1.8-7.8 10^3/uL Lymphocytes # (Auto) 1.5 1.0-4.0 10^3/uL Monocytes # (Auto) 0.7 0.0-1.0 10^3/uL Eosinophils # (Auto) 0.1 0.0-0.3 10^3/uL Basophils # (Auto) 0.1 0.0-0.1 10^3/uL Immature Granulocyte # (Auto) 0.3 H 0.0-0.1 10^3/uL Erythrocyte Sedimentation Rate 11 0-30 MM/HR Prothrombin Time 16.6 H 12.2-14.7 SEC INR Comment 1.3 0.8-1.4 Activated Partial Thromboplast Time 39 H 24-35 SEC D-Dimer 0.35 0.00-0.49 UG/ML Sodium Level 139 135-145 MMOL/L Potassium Level 4.5 3.6-5.0 MMOL/L Chloride Level 105 98-107 MMOL/L Carbon Dioxide Level 22 21-32 MMOL/L Anion Gap 12 5-14 MMOL/L Blood Urea Nitrogen 28 H 7-18 MG/DL Creatinine 1.36 H 0.60-1.30 MG/DL Estimat Glomerular Filtration Rate 55 BUN/Creatinine Ratio 21 Glucose Level 92 70-105 MG/DL Lactic Acid Level 0.81 0.50-2.00 MMOL/L Calcium Level 9.8 8.5-10.1 MG/DL Corrected Calcium 9.6 8.5-10.1 MG/DL Magnesium Level 2.0 1.6-2.4 MG/DL Total Bilirubin 0.3 0.1-1.0 MG/DL Aspartate Amino Transf (AST/SGOT) 18 5-34 U/L Alanine Aminotransferase (ALT/SGPT) 25 0-55 U/L Alkaline Phosphatase 105 40-136 U/L Total Creatine Kinase 79 30-200 U/L Creatine Kinase MB 3.4 <6.6 NG/ML Myoglobin 97.1 H 10.0-92.0 NG/ML Troponin I < 0.028 <0.028 NG/ML C-Reactive Protein High Sensitivity 1.50 H 0.00-0.50 MG/DL Total Protein 7.1 6.4-8.2 GM/DL Albumin 4.2 3.2-4.5 GM/DL Procalcitonin 0.04 <0.10 NG/ML TSH [place] Testing 3.37 0.35-4.94 UIU/ML Serum Alcohol < 10 <10 MG/DL Influenza Type A (RT-PCR) Not Detected Not Detecte Influenza Type B (RT-PCR) Not Detected Not Detecte SARS-CoV-2 RNA (RT-PCR) Not Detected Not Detecte Glucometer 91 70-110 MG/DL Urine Color YELLOW Urine Clarity CLEAR Urine pH 5.5 5-9 Urine Specific [place] 1.015 L 1.016-1.022 Urine Protein NEGATIVE NEGATIVE Urine Glucose (UA) 3+ H NEGATIVE Urine Ketones NEGATIVE NEGATIVE Urine Nitrite NEGATIVE NEGATIVE Urine Bilirubin NEGATIVE NEGATIVE Urine Urobilinogen 0.2 < = 1.0 MG/DL Urine Leukocyte Esterase NEGATIVE NEGATIVE Urine RBC (Auto) NEGATIVE NEGATIVE Urine RBC NONE /HPF Urine WBC NONE /HPF Urine Squamous Epithelial Cells NONE /HPF Urine Crystals NONE /LPF Urine Bacteria NEGATIVE /HPF Urine Casts NONE /LPF Urine Mucus NEGATIVE /LPF Urine Culture Indicated NO My Orders Orders - CHRIS LAZO DO Accucheck Stat ONCE (07/04/22 18:25) Ed Iv/Invasive Line Start (07/04/22 18:25) Ekg Tracing (07/04/22 18:) Monitor-Rhythm Ecg Trace Only (07/04/22 18:) Orthostatic Vital Signs (Adult (07/04/22 18:25) Ct Head/Cervical Spine Wo (07/04/22 18:25) Chest 1 View, Ap/Pa Only (07/04/22 18:) Hand, Left, 3 Views (07/04/22 18:25) Alcohol (07/04/22 18:25) Cbc With Automated Diff (07/04/22 18:) Comprehensive Metabolic Panel (07/04/22 18) Creatine Kinase (07/04/22 18:) Creatine Kinase Mb (07/04/22 18:) Hs C Reactive Protein (07/04/22 18:) Fibrin Degradation Products (07/04/22 18:25) Lactic Acid Analyzer (07/04/22 18:) Magnesium (07/04/22 18:25) Procalcitonin (Pct) (07/04/22 18:25) Protime With Inr (07/04/22 18:25) Partial Thromboplastin Time (07/04/22 18:25) Thyroid Analyzer (07/04/22 18:25) Ua Culture If Indicated (07/04/22 18:25) Blood Culture (07/04/22 18:25) Erythrocyte Sedimentation Rate (07/04/22 18:25) Myoglobin Serum (07/04/22 18:25) Troponin I [place] (07/04/22 18:25) Covid 19 Inhouse Test (07/04/22 18:25) Influenza A And B By Pcr (07/04/22 18:25) Isolation Central Supply Req (07/04/22 18:25) Ed Iv/Invasive Line Start (07/04/22 19:41) Lr 1000ml Iv (07/04/22 19:45) Vital Signs/I&O 07/04/22 17:18 Temp 36.9 Pulse 67 Resp 18 B/P (MAP) 130/72 (91) Pulse Ox 97 O2 Delivery Room Air Blood Pressure Mean: 91 Diagnostic Imaging Comments CXR--PER RADIOLOGIST REPORT AT 1938 FINDINGS: Since 11/05/2021 there has been placement of left anterior chest wall dual-chamber cardiac pacemaker. There is no evidence of pneumothorax. No consolidation or pleural fluid is identified. Overall, there has been no adverse change. IMPRESSION: No acute abnormality or complication related to pacemaker placement. XRAYS OF LEFT HAND--PER RADIOLOGIST REPORT AT 194 FINDINGS: There has been mild overall worsening of degenerative changes in the 3rd metacarpal phalangeal joint and the interphalangeal joints of left hand. There is also persistent subchondral cyst within the lunate bone. No new fracture or malalignment is identified. IMPRESSION: Mild interval worsening of degenerative changes most pronounced at the 3rd metacarpal phalangeal joints. Otherwise, no definite acute osseous abnormality is detected. CT HEAD/CERVICAL SPINE--PER RADIOLOGIST REPORT AT 194 FINDINGS: Ventricles and sulci are within normal limits for size. There is no intracranial hemorrhage identified. There is no abnormal mass effect or shift of midline structures. There is moderate contusion in the left posterior parietal scalp. IMPRESSION: No acute intracranial abnormality. CT CERVICAL SPINE: Multiple contiguous axial CT images of the cervical spine were obtained with sagittal and coronal reformatted images produced. FINDINGS: There is loss of normal cervical lordosis. Vertebral body heights and disc spaces are maintained. Prevertebral soft tissues are unremarkable, and there is no evidence of paraspinous hematoma. There is moderate disc space narrowing and disc bulging with degenerative facet arthropathy, greater on the left. IMPRESSION: Loss of normal cervical lordosis which may be due to positioning or muscle spasm. There is, otherwise, no CT evidence of acute cervical spinal abnormality. Reviewed: Reviewed by Me Departure Impression Primary Impression: Syncope Additional Impressions: Closed head injury Neck strain Occipital scalp laceration HX OF ATRIAL FIB/FLUTTER ON ANTICOAGULATION Departure-Patient Inst. Referrals: BRENDA FUENTES DO (PCP/Family) Primary Care Physician CHRIS LAZO DO Jul 04, 2022 18:37
[2022-07-04 18:47] LABS: BASOPHILS # (AUTO) 0.1 10^3/uL (0.0-0.1); BASOPHILS % (AUTO) 1 % (0-10); EOSINOPHILS # (AUTO) 0.1 10^3/uL (0.0-0.3); EOSINOPHILS % (AUTO) 1 % (0-10); HEMATOCRIT 42 % (40-54); HEMOGLOBIN 13.9 g/dL (13.3-17.7); LYMPHOCYTES # (AUTO) 1.5 10^3/uL (1.0-4.0); LYMPHOCYTES % (AUTO) 18 % (12-44); MEAN CORPUSCULAR HEMOGLOBIN 30 pg (25-34); MEAN CORPUSCULAR HGB CONC 34 g/dL (32-36); MEAN CORPUSCULAR VOLUME 91 fL (80-99); MONOCYTES # (AUTO) 0.7 10^3/uL (0.0-1.0); MONOCYTES % (AUTO) 8 % (0-12); NEUTROPHILS # (AUTO) 5.8 10^3/uL (1.8-7.8); NEUTROPHILS % (AUTO) 68 % (42-75); PLATELET COUNT 245 10^3/uL (130-400); WHITE BLOOD COUNT 8.5 10^3/uL (4.3-11.0)
[2022-07-04 19:07] LABS: FIBRIN DEGRADATION PRODUCTS 0.35 UG/ML (0.00-0.49); INR 1.3 (0.8-1.4); PROTHROMBIN TIME PATIENT 16.6 SEC (12.2-14.7)
[2022-07-04 19:09] LABS: ERYTHROCYTE SEDIMENTATION RATE 11 MM/HR (0-30)
[2022-07-04 19:10] LABS: BILIRUBIN,URINE NEGATIVE (NEGATIVE); CLARITY,URINE CLEAR; COLOR,URINE YELLOW; GLUCOSE, URINE (UA) 3+ (NEGATIVE); KETONES,URINE NEGATIVE (NEGATIVE); LEUKOCYTE ESTERASE ,URINE NEGATIVE (NEGATIVE); NITRITE,URINE NEGATIVE (NEGATIVE); PH,URINE 5.5 (5-9); PROTEIN,URINE NEGATIVE (NEGATIVE)
[2022-07-04 19:10] LABS: ALANINE AMINOTRANSFERASE 25 U/L (0-55); ALBUMIN 4.2 GM/DL (3.2-4.5); ALKALINE PHOSPHATASE 105 U/L (40-136); BILIRUBIN,TOTAL 0.3 MG/DL (0.1-1.0); BUN/CREATININE RATIO 21; CALCIUM 9.8 MG/DL (8.5-10.1); CARBON DIOXIDE 22 MMOL/L (21-32); CHLORIDE 105 MMOL/L (98-107); CREATINE KINASE 79 U/L (30-200); CREATININE SERUM 1.36 MG/DL (0.60-1.30); GFR ESTIMATED 55; GLUCOSE 92 MG/DL (70-105); POTASSIUM 4.5 MMOL/L (3.6-5.0); SODIUM 139 MMOL/L (135-145); TOTAL PROTEIN 7.1 GM/DL (6.4-8.2)
--- NOTE | 2022-07-04 19:13 | Diagnostic Imaging Report ---
INDICATION: Left hand pain. EXAMINATION: AP, oblique and lateral views of the left hand were obtained. COMPARISON: Study of 05/12/2016. FINDINGS: There has been mild overall worsening of degenerative changes in the 3rd metacarpal phalangeal joint and the interphalangeal joints of left hand. There is also persistent subchondral cyst within the lunate bone. No new fracture or malalignment is identified. IMPRESSION: Mild interval worsening of degenerative changes most pronounced at the 3rd metacarpal phalangeal joints. Otherwise, no definite acute osseous abnormality is detected. Dictated by: Dictated on workstation # [id number]
--- NOTE | 2022-07-04 19:14 | Diagnostic Imaging Report ---
INDICATION: Syncope. EXAMINATION: Single AP view of the chest was obtained. FINDINGS: Since 11/05/2021 there has been placement of left anterior chest wall dual-chamber cardiac pacemaker. There is no evidence of pneumothorax. No consolidation or pleural fluid is identified. Overall, there has been no adverse change. IMPRESSION: No acute abnormality or complication related to pacemaker placement. Dictated by: Dictated on workstation # [id number]
[2022-07-04 19:23] LABS: BACTERIA,URINE NEGATIVE /HPF
[2022-07-04 19:32] LABS: CREATINE KINASE MB 3.4 NG/ML (<6.6); TSH (THYROID ANALYZER) 3.37 UIU/ML (0.35-4.94)
--- NOTE | 2022-07-04 19:40 | Diagnostic Imaging Report ---
PROCEDURE: CT head and CT cervical spine without contrast. TECHNIQUE: Multiple contiguous axial images were obtained through the brain and cervical spine without the use of intravenous contrast. Sagittal and coronal reformations through the cervical spine were then performed. Auto Exposure Controls were utilized during the CT exam to meet ALARA standards for radiation dose reduction. INDICATION: Trauma with head and neck injuries. COMPARISON: Head CT from 04/01/2018. CT HEAD: CT images of the head were obtained. FINDINGS: Ventricles and sulci are within normal limits for size. There is no intracranial hemorrhage identified. There is no abnormal mass effect or shift of midline structures. There is moderate contusion in the left posterior parietal scalp. IMPRESSION: No acute intracranial abnormality. CT CERVICAL SPINE: Multiple contiguous axial CT images of the cervical spine were obtained with sagittal and coronal reformatted images produced. FINDINGS: There is loss of normal cervical lordosis. Vertebral body heights and disc spaces are maintained. Prevertebral soft tissues are unremarkable, and there is no evidence of paraspinous hematoma. There is moderate disc space narrowing and disc bulging with degenerative facet arthropathy, greater on the left. IMPRESSION: Loss of normal cervical lordosis which may be due to positioning or muscle spasm. There is, otherwise, no CT evidence of acute cervical spinal abnormality. Dictated by: Dictated on workstation # [id number]
[2022-07-04] MEDS ORDERED: LACTATED RINGERS 1,000 ML IV ONE (19:45)
[2022-07-04 20:35] VITALS: BP_SYST 135; BP_SYST 158; BP_SYST 160; BP_DIAS 75; BP_DIAS 80; BP_DIAS 84
[2022-07-04 21:37] VITALS: BP 157/77
[2022-07-04] MEDS: CATHETER FLUSH 10 ML SYR IVP SCH (22:00)
[2022-07-05] VITALS: BP 136/76
[2022-07-05 05:53] LABS: BASOPHILS # (AUTO) 0.1 10^3/uL (0.0-0.1); BASOPHILS % (AUTO) 1 % (0-10); EOSINOPHILS # (AUTO) 0.1 10^3/uL (0.0-0.3); EOSINOPHILS % (AUTO) 1 % (0-10); HEMATOCRIT 44 % (40-54); HEMOGLOBIN 14.4 g/dL (13.3-17.7); LYMPHOCYTES # (AUTO) 1.5 10^3/uL (1.0-4.0); LYMPHOCYTES % (AUTO) 17 % (12-44); MEAN CORPUSCULAR HEMOGLOBIN 30 pg (25-34); MEAN CORPUSCULAR HGB CONC 33 g/dL (32-36); MEAN CORPUSCULAR VOLUME 90 fL (80-99); MEAN PLATELET VOLUME 9.7 fL (9.0-12.2); MONOCYTES # (AUTO) 0.9 10^3/uL (0.0-1.0); MONOCYTES % (AUTO) 10 % (0-12); NEUTROPHILS % (AUTO) 68 % (42-75); PLATELET COUNT 230 10^3/uL (130-400); WHITE BLOOD COUNT 8.9 10^3/uL (4.3-11.0)
[2022-07-05] MEDS: CATHETER FLUSH 10 ML SYR IVP SCH (06:00)
[2022-07-05 06:08] LABS: CALCIUM 9.8 MG/DL (8.5-10.1); CREATININE SERUM 1.35 MG/DL (0.60-1.30); POTASSIUM 4.4 MMOL/L (3.6-5.0)
[2022-07-05] MEDS: inSUlin ASPART (NovoLOG) 1 UNIT/0.01 ML (CHARGE PER UNIT) SC SCH ×2 (06:24→11:00)
[2022-07-05 08:00] VITALS: BP 147/86
[2022-07-05] MEDS ORDERED: HYDROcodone/APAP 5 MG/325 MG (LORTAB) TAB PO PRN (08:30)
[2022-07-05] MEDS ORDERED: RX-CYCLOBENZAPRINE 10 MG (FLEXERIL) TAB PPK#3 PO PRN (08:30)
[2022-07-05] MEDS ORDERED: LIDOCAINE 4% (SALONPAS) PATCH TP PRN (08:30)
[2022-07-05] MEDS ORDERED: GABAPENTIN 300 MG (NEURONTIN) CAP PO SCH ×2 (09:00→21:00)
[2022-07-05] MEDS ORDERED: DULoxetine 30 MG (CYMBALTA) CAP PO SCH (09:00)
[2022-07-05] MEDS ORDERED: APIXABAN 5 MG (ELIQUIS) TABLET PO SCH (09:00)
[2022-07-05] MEDS ORDERED: LORATADINE (CLARITIN) 10 MG TAB PO SCH (09:00)
[2022-07-05] MEDS ORDERED: ASPIRIN E.C. 81 MG (ECOTRIN) TAB PO SCH (09:00)
[2022-07-05] MEDS ORDERED: PANTOPRAZOLE 40 MG (PROTONIX) TAB PO SCH (09:00)
--- NOTE | 2022-07-05 10:39 | Consultation-Cardiology ---
HPI-Cardiology Cardiology Consultation Date of Consultation 07/05/22 Date of Admission Time Seen by Provider: 10:33 Indication: Syncope HPI 72-year-old gentleman with history of paroxysmal atrial fibrillation/flutter, had ablation in the past and continues to have recurrent fibrillation/flutter. Has coronary artery disease, deemed inoperable. Patient was in his kitchen and and had a sudden syncopal episode, woke up on the floor. Does not know for how long he was out. Had a similar episode in the past. Usually orthostatic hypotension but 1 episode of full syncope. Denied any chest pain, no palpitation, no shortness of breath, he is laying down in bed comfortable, no new complaint. Home Medications & Allergies Allergies: Coded Allergies: No Known Drug Allergies (Verified , 02/09/17) Home Medication List Reviewed: Yes TRP-Mnoamh-Jmzojw Hx Patient Social History Marital Status: Employed/Student: retired Smoking Status: Never a Smoker 2nd Hand Smoke Exposure: No Recent Hopitalizations: No Have you traveled recently?: No Alcohol Use?: No Immunizations Up To Date Tetanus Booster (TDap): More than 5yrs Date of Pneumonia Vaccine: Jun 08, 2016 Date of Influenza Vaccine: Jul 04, 2022 Past Medical History Discussed below Family Medical History Significant Family History: No Pertinent Family Hx Family Medical Hx Noncontributory Review of Systems-General Review of Systems Constitutional: no symptoms reported, see HPI EENTM: see HPI, no symptoms reported Respiratory: see HPI; No cough, No dyspnea on exertion, No hemoptysis, No orthopnea, No phlegm, No short of breath, No stridor, No wheezing, No other Cardiovascular: see HPI; No chest pain, No edema, No Hx of Intervention, No palpitations; syncope; No vascular heart diseas, No other Gastrointestinal: no symptoms reported, see HPI Genitourinary: no symptoms reported, see HPI Musculoskeletal: no symptoms reported, see HPI Skin: no symptoms reported, see HPI Psychiatric/Neurological: No Symptoms Reported, See HPI Reviewed Test Results Reviewed Test Results Lab Laboratory Tests Test 07/04/22 18:34 07/04/22 18:41 07/04/22 18:44 07/04/22 18:54 Range/Units White Blood Count 8.5 4.3-11.0 10^3/uL Red Blood Count 4.58 4.30-5.52 10^6/uL Hemoglobin 13.9 13.3-17.7 g/dL Hematocrit 42 40-54 % Mean Corpuscular Volume 91 80-99 fL Mean Corpuscular Hemoglobin 30 25-34 pg Mean Corpuscular Hemoglobin Concent 34 32-36 g/dL Red Cell Distribution Width 14.0 10.0-14.5 % Platelet Count 245 130-400 10^3/uL Mean Platelet Volume 10.0 9.0-12.2 fL Immature Granulocyte % (Auto) 4 % Neutrophils (%) (Auto) 68 42-75 % Lymphocytes (%) (Auto) 18 12-44 % Monocytes (%) (Auto) 8 0-12 % Eosinophils (%) (Auto) 1 0-10 % Basophils (%) (Auto) 1 0-10 % Neutrophils # (Auto) 5.8 1.8-7.8 10^3/uL Lymphocytes # (Auto) 1.5 1.0-4.0 10^3/uL Monocytes # (Auto) 0.7 0.0-1.0 10^3/uL Eosinophils # (Auto) 0.1 0.0-0.3 10^3/uL Basophils # (Auto) 0.1 0.0-0.1 10^3/uL Immature Granulocyte # (Auto) 0.3 H 0.0-0.1 10^3/uL Erythrocyte Sedimentation Rate 11 0-30 MM/HR Prothrombin Time 16.6 H 12.2-14.7 SEC INR Comment 1.3 0.8-1.4 Activated Partial Thromboplast Time 39 H 24-35 SEC D-Dimer 0.35 0.00-0.49 UG/ML Sodium Level 139 135-145 MMOL/L Potassium Level 4.5 3.6-5.0 MMOL/L Chloride Level 105 98-107 MMOL/L Carbon Dioxide Level 22 21-32 MMOL/L Anion Gap 12 5-14 MMOL/L Blood Urea Nitrogen 28 H 7-18 MG/DL Creatinine 1.36 H 0.60-1.30 MG/DL Estimat Glomerular Filtration Rate 55 BUN/Creatinine Ratio 21 Glucose Level 92 70-105 MG/DL Lactic Acid Level 0.81 0.50-2.00 MMOL/L Calcium Level 9.8 8.5-10.1 MG/DL Corrected Calcium 9.6 8.5-10.1 MG/DL Magnesium Level 2.0 1.6-2.4 MG/DL Total Bilirubin 0.3 0.1-1.0 MG/DL Aspartate Amino Transf (AST/SGOT) 18 5-34 U/L Alanine Aminotransferase (ALT/SGPT) 25 0-55 U/L Alkaline Phosphatase 105 40-136 U/L Total Creatine Kinase 79 30-200 U/L Creatine Kinase MB 3.4 <6.6 NG/ML Myoglobin 97.1 H 10.0-92.0 NG/ML Troponin I < 0.028 <0.028 NG/ML C-Reactive Protein High Sensitivity 1.50 H 0.00-0.50 MG/DL Total Protein 7.1 6.4-8.2 GM/DL Albumin 4.2 3.2-4.5 GM/DL Procalcitonin 0.04 <0.10 NG/ML TSH [place] Testing 3.37 0.35-4.94 UIU/ML Serum Alcohol < 10 <10 MG/DL Influenza Type A (RT-PCR) Not Detected Not Detecte Influenza Type B (RT-PCR) Not Detected Not Detecte SARS-CoV-2 RNA (RT-PCR) Not Detected Not Detecte Glucometer 91 70-110 MG/DL Urine Color YELLOW Urine Clarity CLEAR Urine pH 5.5 5-9 Urine Specific [place] 1.015 L 1.016-1.022 Urine Protein NEGATIVE NEGATIVE Urine Glucose (UA) 3+ H NEGATIVE Urine Ketones NEGATIVE NEGATIVE Urine Nitrite NEGATIVE NEGATIVE Urine Bilirubin NEGATIVE NEGATIVE Urine Urobilinogen 0.2 < = 1.0 MG/DL Urine Leukocyte Esterase NEGATIVE NEGATIVE Urine RBC (Auto) NEGATIVE NEGATIVE Urine RBC NONE /HPF Urine WBC NONE /HPF Urine Squamous Epithelial Cells NONE /HPF Urine Crystals NONE /LPF Urine Bacteria NEGATIVE /HPF Urine Casts NONE /LPF Urine Mucus NEGATIVE /LPF Urine Culture Indicated NO Test 07/04/22 21:58 07/05/22 01:10 07/05/22 05:05 Range/Units Troponin I 0.048 H 0.033 H <0.028 NG/ML White Blood Count 8.9 4.3-11.0 10^3/uL Red Blood Count 4.85 4.30-5.52 10^6/uL Hemoglobin 14.4 13.3-17.7 g/dL Hematocrit 44 40-54 % Mean Corpuscular Volume 90 80-99 fL Mean Corpuscular Hemoglobin 30 25-34 pg Mean Corpuscular Hemoglobin Concent 33 32-36 g/dL Red Cell Distribution Width 14.1 10.0-14.5 % Platelet Count 230 130-400 10^3/uL Mean Platelet Volume 9.7 9.0-12.2 fL Immature Granulocyte % (Auto) 3 % Neutrophils (%) (Auto) 68 42-75 % Lymphocytes (%) (Auto) 17 12-44 % Monocytes (%) (Auto) 10 0-12 % Eosinophils (%) (Auto) 1 0-10 % Basophils (%) (Auto) 1 0-10 % Neutrophils # (Auto) 6.0 1.8-7.8 10^3/uL Lymphocytes # (Auto) 1.5 1.0-4.0 10^3/uL Monocytes # (Auto) 0.9 0.0-1.0 10^3/uL Eosinophils # (Auto) 0.1 0.0-0.3 10^3/uL Basophils # (Auto) 0.1 0.0-0.1 10^3/uL Immature Granulocyte # (Auto) 0.3 H 0.0-0.1 10^3/uL Sodium Level 139 135-145 MMOL/L Potassium Level 4.4 3.6-5.0 MMOL/L Chloride Level 106 98-107 MMOL/L Carbon Dioxide Level 20 L 21-32 MMOL/L Anion Gap 13 5-14 MMOL/L Blood Urea Nitrogen 24 H 7-18 MG/DL Creatinine 1.35 H 0.60-1.30 MG/DL Estimat Glomerular Filtration Rate 55 BUN/Creatinine Ratio 18 Glucose Level 178 H 70-105 MG/DL Calcium Level 9.8 8.5-10.1 MG/DL Physical Exam Physical Exam Vital Signs Vital Signs - First Documented 07/04/22 17:18 Temp 36.9 Pulse 67 Resp 18 B/P (MAP) 130/72 (91) Pulse Ox 97 O2 Delivery Room Air Capillary Refill : Less Than 3 Seconds Height, Weight, BMI Height: 6'0" Weight: 195lbs. 0.0oz. [id number]; 26.69 BMI Method:Stated General Appearance: No Apparent Distress, WD/WN Eyes: Bilateral Eye Normal Inspection, Bilateral Eye PERRL, Bilateral Eye EOMI HEENT: PERRL/EOMI, TMs Normal, Normal ENT Inspection, Pharynx Normal, Moist Mucous Membranes Neck: Full Range of Motion, Normal Inspection, Non Tender, Supple, Carotid Bruit Respiratory: Chest Non Tender, Normal Breath Sounds, No Accessory Muscle Use, No Respiratory Distress Cardiovascular: Regular Rate, Rhythm, No Edema, No Gallop, No JVD, No Murmur, Normal Peripheral Pulses Gastrointestinal: Normal Bowel Sounds, No Organomegaly, No Pulsatile Mass, Non Tender, Soft Back: Normal Inspection, No CVA Tenderness, No Vertebral Tenderness Extremity: Normal Capillary Refill, Normal Inspection, Normal Range of Motion, Non Tender, No Calf Tenderness, No Pedal Edema Neurologic/Psychiatric: Alert, Oriented x3, No Motor/Sensory Deficits, Normal Mood/Affect Skin: Normal Color, Warm/Dry Lymphatic: No Adenopathy A/P-Cardiology Admission Diagnosis Syncope Paroxysmal atrial fibrillation Paroxysmal atrial flutter Coronary artery disease Assessment/Plan Syncope, probably orthostatic hypotension. Underlying malignant arrhythmia cannot be excluded. Pacemaker interrogation was done which showed multiple episodes of paroxysmal atrial flutter with few tachycardia episodes. No malignant arrhythmia was noted Probably syncope occurred with the tachycardia and hypotension, starting low- dose beta-blockers. Okay for discharge and follow-up as an outpatient Sinus rhythm with frequent PVCs, ventricular trigeminy Starting low-dose beta-blockers and evaluate tolerance and response. Mild elevation in troponin, has been flat. No increase in troponin level. Probably secondary to hypotension or arrhythmia. Not an acute [place] Coronary artery disease, cardiac catheterization done on November 05, 2021 after having an abnormal stress test which showed moderate to severe distal circumflex artery, first obtuse marginal branch and proximal first diagonal artery stenosis, fairly small arteries not amendable to intervention otherwise mild to moderate disease nonobstructive disease with normal left ventricular end- diastolic pressure. Continue conservative management and monitor Stress test on 10/27/21 showing fixed defect involving the whole anterior wall and anterolateral wall with small area of toby-infarct ischemia. Transient ischemic dilatation 1.36. SSS 19, SDS 5. Palpitation, paroxysmal atrial fibrillation/flutter, multiple episodes in and out of atrial fibrillation noted during his hospitalization on November 06, 2021. Patient was started on Multaq and Eliquis. Palpitation is better but having some tingling sensation on the left side of his head. Patient was seen with Dr. Mcgraw and had ablation done in January 2022 and had a pacemaker Patient is back in atrial flutter, underwent cardioversion on March 27, 2022 and has been in and out of atrial flutter We will discuss referring him back for EP evaluation Sinus node dysfunction, bradycardia, had episode of transient bradycardia during the hospital stay with a heart rate in the 40s. Probably underlying sleep apnea. Patient has dual-chamber pacemaker, Lorenzo device. Will interrogate and evaluate for arrhythmia. Hyperlipidemia, lipid profile done in February 2022 showing total cholesterol 145, triglycerides 216, HDL 28, LDL 91. Continue to monitor Diabetes mellitus, followed and managed by primary care physician History of peripheral arterial disease, had peripheral angiogram done in October 2018 showing mild disease nonobstructive disease, normal abdominal aorta and renal arteries. Maintained on ASA Back pain, knee pain, shoulder pain, maintained on multiple medications Nonobstructive carotid artery stenosis per carotid duplex done July 2021. Continue to monitor Orthostatic dizziness and lightheadedness, has been having chronic episodes of dizziness. Clinical Quality Measures AMI/AHF: ASA po Prior to arrival: Yes (81) DAGO FOREMAN MD Jul 05, 2022 10:39
--- NOTE | 2022-07-05 11:02 | Discharge Inst-Simple/Standard ---
Discharge Inst-Standard Discharge Medications New, Converted or Re-Newed RX: Transmitted to Pharmacy Patient Instructions/Follow Up Plan of Care/Instructions/FU: Please continue to take your medications as written. Please follow up with your primary care doctor to follow up this hospital stay. Activity as Tolerated: Yes Discharge Diet: ADA Diet Return to The Hospital For: Chest pain, syncope, palpitations, shortness of breath, fever, weakness, if you feel you are getting worse. BE BAILEY MD Jul 05, 2022 11:02
[2022-07-05] MEDS ORDERED: meTOprolol TARTRATE 25 MG (LOPRESSOR) TABLET ONE (11:04)
[2022-07-05] MEDS ORDERED: meTOprolol TARTRATE 25 MG (LOPRESSOR) TABLET PO SCH (11:15)
--- NOTE | 2022-07-05 11:25 | Short Stay Summary-Hospitalist ---
History of Present Illness HPI/Chief Complaint Patient is a 72-year-old male with past medical history of atrial fibrillation, coronary artery disease, insulin-dependent diabetes, hypertension, hyperlipidemia who presented to the emergency department due to syncope. He states he has had issues with lightheadedness and syncope going on for a few months to over a year. He often gets lightheaded and has to stop what he is doing to feel better. He has had multiple episodes in the past where he has passed out completely. He is not been to a doctor for this though. Last night he was in the kitchen and felt lightheaded and then passed out hitting his head on the sink. He came to and called his who was at the grocery store. He is unsure how long he was down but does not think it was for very long. [place] [facility] due to laceration from where he hit his head and was referred to the emergency department. He was admitted for observation overnight due to concern for arrhythmia. He does wear glucose monitor and states his blood sugars were fine throughout this episode. He reports feeling better today but having a rough night due to pain and his neuropathy. Source: patient Date Seen 07/05/22 Time Seen by a Provider: 09:20 Attending Physician Brenda Fuentes DO PCP Admitting Physician: Pricilla Jauregui MD Attending Physician: Pricilla Jauregui MD Referring Physician Date of Admission Jul 04, 2022 at 19:45 Home Medications & Allergies Home Medications Reviewed patient Home Medication Reconciliation performed by pharmacy medication reconciliations missile and missile checkout technician and/or nursing. Patients Allergies have been reviewed. Allergies Allergies Coded Allergies No Known Drug Allergies (Verified02/09/17) Past Motkqai-Pzkamd-Mwzhxi Hx Patient Social History Marrital Status: Employed/Student: retired Tobacco Use?: No Smoking Status: Never a Smoker Smokeless Tobacco Frequency: Never a User Use of E-Cig and/or Vaping dev: No Use of E-Cig and/or Vaping Juventino: Never a User Substance use?: No Alcohol Use?: No Alcohol Frequency: Rarely Pt feels they are or have been: No Immunizations Up To Date Date of Influenza Vaccine: Jul 04, 2022 Tetanus Booster (TDap): Unknown Hepatitis A: No Hepatitis B: No Date of Pneumonia Vaccine: Jun 08, 2016 Seasonal Allergies Seasonal Allergies: Yes Current Status Advance Directives: No Communicates: Verbally Primary Language: Serbian Preferred Spoken Language: Serbian Sensory deficits: Vision impairment, Hearing impairment Implanted or Applied Medical D: Pacemaker Past Medical History Surgeries: Orthopedic, Pacemaker Currently Using CPAP: No Currently Using BIPAP: No Hypertension Neuropathy Sexually Transmitted Disease: No HIV/AIDS: No Prostate Problems Chronic Constipation Degenerate Disk Disease, Arthritis, Chronic Back Pain Loss of Vision: Bilateral Hearing Impairment: Bilateral Hearing Aide Did You Recieve Any Treatments: No Anxiety, PTSD Blood Disorders: No Adverse Reaction/Blood Tranf: No Family Medical History Reviewed Nursing Family Hx No Pertinent Family Hx Review of Systems Constitutional: No chills, No fever EENTM: no symptoms reported Respiratory: No dyspnea on exertion, No short of breath Cardiovascular: see HPI Gastrointestinal: no symptoms reported Genitourinary: no symptoms reported Musculoskeletal: no symptoms reported Skin: no symptoms reported Psychiatric/Neurological: No Symptoms Reported Physical Exam Physical Exam Vital Signs Vital Signs - First Documented 07/04/22 17:18 Temp 36.9 Pulse 67 Resp 18 B/P (MAP) 130/72 (91) Pulse Ox 97 O2 Delivery Room Air Capillary Refill : Less Than 3 Seconds Height, Weight, BMI Height: 6'0" Weight: 195lbs. 0.0oz. 88.714307qc; 26.69 BMI Method:Stated General Appearance: No Apparent Distress, WD/WN, Thin Eyes: Bilateral Eye Normal Inspection, Bilateral Eye PERRL, Bilateral Eye EOMI HEENT: PERRL/EOMI, Moist Mucous Membranes Neck: Full Range of Motion, Normal Inspection, Non Tender, Supple, Carotid Bruit Respiratory: Lungs Clear, No Accessory Muscle Use, No Respiratory Distress Cardiovascular: Regular Rate, Rhythm, No Edema, No JVD, No Murmur, Normal Peripheral Pulses Gastrointestinal: Normal Bowel Sounds, Non Tender, Soft; No Distended, No Guarding Back: Normal Inspection Extremity: Normal Capillary Refill, Normal Inspection, No Pedal Edema, Other (LEFT HAND WITH LARGE BRUISE ON DORSAL ASPECT) Neurologic/Psychiatric: Alert, Oriented x3, Normal Mood/Affect Skin: Normal Color, Warm/Dry, Other (laceration on back of head with dried blood and sugical glue obscuring view of wound but no active bleeding) Lymphatic: No Adenopathy Results Results/Procedures Labs Laboratory Tests 07/04/22 18:34 11/6/22 05:05 Patient resulted labs reviewed. Imaging: Reviewed Imaging Report [facility] [place], [place] NAME: RICHARDLYNDON [facility] REC#: [id number] PT STATUS: ADM Isaura : 1950 PHYSICIAN: CHRIS LAZO DO ADMIT DATE: 07/04/22/[facility] Signed Date of Exam:07/04/22 CT HEAD/CERVICAL SPINE WO PROCEDURE: CT head and CT cervical spine without contrast. TECHNIQUE: Multiple contiguous axial images were obtained through the brain and cervical spine without the use of intravenous contrast. Sagittal and coronal reformations through the cervical spine were then performed. Auto Exposure Controls were utilized during the CT exam to meet ALARA standards for radiation dose reduction. INDICATION: Trauma with head and neck injuries. COMPARISON: Head CT from 04/01/2018. CT HEAD: CT images of the head were obtained. FINDINGS: Ventricles and sulci are within normal limits for size. There is no intracranial hemorrhage identified. There is no abnormal mass effect or shift of midline structures. There is moderate contusion in the left posterior parietal scalp. IMPRESSION: No acute intracranial abnormality. CT CERVICAL SPINE: Multiple contiguous axial CT images of the cervical spine were obtained with sagittal and coronal reformatted images produced. FINDINGS: There is loss of normal cervical lordosis. Vertebral body heights and disc spaces are maintained. Prevertebral soft tissues are unremarkable, and there is no evidence of paraspinous hematoma. There is moderate disc space narrowing and disc bulging with degenerative facet arthropathy, greater on the left. IMPRESSION: Loss of normal cervical lordosis which may be due to positioning or muscle spasm. There is, otherwise, no CT evidence of acute cervical spinal abnormality. Dictated by: Dictated on workstation # [id number] Dict: 07/04/221925 Trans: 07/04/222201 [facility] [id number] Interpreted by: KIERAN JAMES MD Electronically signed by: KIERAN JAMES MD 07/04/222201 [facility]. [place], [place] NAME: LYNDON RICHARD Jean [facility] REC#: [id number] PT STATUS: REG ER : 1950 PHYSICIAN: CHRIS LAZO DO ADMIT DATE: 07/04/22/ER Draft Date of Exam:07/04/22 HAND, LEFT, 3 VIEWS INDICATION: Left hand pain. EXAMINATION: AP, oblique and lateral views of the left hand were obtained. COMPARISON: Study of 05/12/2016. FINDINGS: There has been mild overall worsening of degenerative changes in the 3rd metacarpal phalangeal joint and the interphalangeal joints of left hand. There is also persistent subchondral cyst within the lunate bone. No new fracture or malalignment is identified. IMPRESSION: Mild interval worsening of degenerative changes most pronounced at the 3rd metacarpal phalangeal joints. Otherwise, no definite acute osseous abnormality is detected. Dictated on workstation # [id number] Dict: 07/04/221907 Trans: 07/04/221912 PJE [id number] Interpreted by: KIERAN JAMES MD Electronically signed by: [facility] [place] [place] NAME: LYNDON RICHARD [facility] REC#: [id number] PT STATUS: ADM Isaura : 1950 PHYSICIAN: CHRIS LAZO DO ADMIT DATE: 07/04/22/[facility] Signed Date of Exam:07/04/22 CHEST 1 VIEW, AP/PA ONLY INDICATION: Syncope. EXAMINATION: Single AP view of the chest was obtained. FINDINGS: Since 11/05/2021 there has been placement of left anterior chest wall dual-chamber cardiac pacemaker. There is no evidence of pneumothorax. No consolidation or pleural fluid is identified. Overall, there has been no adverse change. IMPRESSION: No acute abnormality or complication related to pacemaker placement. Dictated by: Dictated on workstation # [id number] Dict: 07/04/221908 Trans: 07/04/222200 PJE [id number] Interpreted by: KIERAN JAMES MD Electronically signed by: KIERAN JAMES MD 07/04/222200 Short Stay Diagnosis Discharge Diagnosis-Short Stay Admission Diagnosis Syncope Final Discharge Diagnosis Syncope Conclusion Plan Syncope Atrial fibrillation Observed overnight, monitored on telemetry Cardiology consulted, appreciate recs Discussed with Dr Sofia who interrogate pacemaker which revealed atrial flutter with RVR Toprol added DC home with outpatient referral to his EP Diagnosis/Problems Diagnosis/Problems (1) Insulin dependent diabetes mellitus (2) Syncope Status: Acute (3) Occipital scalp laceration Status: Acute (4) Atrial flutter (5) Diabetic neuropathy Status: Acute (6) PAD (peripheral artery disease) Clinical Quality Measures AMI/AHF: ASA po Prior to arrival: Yes (81) Copy Copies To 1: BRENDA FUENTES KATELYN M MD Jul 05, 2022 11:25
[2022-07-05] MEDS ORDERED: METO-351 PO (11:26)
[2022-07-05 12:00] VITALS: BP 150/95
[2022-07-05] MEDS ORDERED: traZODone 100 MG (DESYREL) TAB PO SCH (21:00)
[2022-07-05] MEDS ORDERED: diphenhydrAMINE 25 MG TAB (BENADRYL) PO SCH (21:00)
[2022-07-05] MEDS ORDERED: CYPROHEPTADINE (PERIACTIN) 4 MG TAB PO SCH (21:00)
[2022-07-05] MEDS ORDERED: CLOPIDOGREL 75 MG (PLAVIX) TABLET PO SCH (21:00)
[2022-07-05] MEDS ORDERED: TAMSULOSIN 0.4 MG (FLOMAX) CAP PO SCH (21:00)
[2022-07-05] MEDS ORDERED: FINASTERIDE (PROSCAR) 5 MG TAB PO SCH (21:00)
== END 2022-07-05 11:27 | disposition home or self-care (01) ==
LOC: EDUNIT# 17:04 → ER 17:07 → CSD 19:45 → UNDOADMOB 19:45 → CSD 21:20 → UNDODISOB 07-05 11:27
PROVIDERS: ADMIT Family Medicine; ATTEND Family Medicine
DX: R55 Syncope and collapse (principal); S01.01XA Laceration without foreign body of scalp, initial encounter; I48.91 Unspecified atrial fibrillation; I48.92 Unspecified atrial flutter; E11.40 Type 2 diabetes mellitus with diabetic neuropathy, unspecified; Z79.4 Long term (current) use of insulin; I73.9 Peripheral vascular disease, unspecified; Z79.01 Long term (current) use of anticoagulants; Z79.899 Other long term (current) drug therapy
CPT/HCPCS: 70450; 71045; 72125; 73130; 80048; 80053; 81000; 82550; 82553; 82947 ×2; 83605; 83735; 83874; 84145; 84443; 84484 ×2; 85025 ×2; 85379; 85610; 85652; 85730; 86141; 87040; 87636; 93005; 93041; 99284; G0378; G0480; 36415; 80320

== ENCOUNTER 2023-03-19 00:29 | Observation (INO) | payer MEDICARE ==
[~2023-03-19] VITALS: Ht 182.8 cm; Wt 91.8 kg
[~2023-03-19 00:29] MED LIST changes: +CLOP-31 PO; -CLOP75TA69 PO; +DIPH-1122 PO; -DIPH25CA48 PO; -INSU100I29 SQ; +INSU100I30 SQ; +METO-351 PO
--- NOTE | 2023-03-19 00:44 | ED Chest Pain ---
General Chief Complaint: Cardiac/General Problems Stated Complaint: BACK,SHOULDER,JAW,CHEST PAIN Source: patient History of Present Illness Date Seen by Provider: Mar 19, 2023 Time Seen by Provider: 00:33 Initial Comments PT ARRIVES VIA POV FROM HOME WITH PT STATES AROUND 2100 TONIGHT, HE WAS SITTING AND WATCHING TV AND BEGAN HAVING: -CHEST PAIN -UPPER BACK PAIN -PAIN INTO ANTERIOR NECK AND LOWER JAWS -BILATERAL SHOULDER PAIN -SLIGHT SHORTNESS OF BREATH RATES PAIN 5/10 NO SWEATS NO NAUSEA/VOMITING NO PALPITATIONS NO DIZZINESS OR SYNCOPE NO SWELLING IN LEGS/FEET OR PAIN IN CALVES NO FEVER OR RECENT ILLNESS PT HAS CHRONIC ATRIAL FIBRILLATION/ATRIAL FLUTTER, HAS A PACEMAKER, HAS HAD 2 CARDIAC ALBATIONS AND IS SCHEDULED TO HAVE A 3RD CARDIAC ABLATION IN [place] 03/31/23. HE HAS HAD 2 OR 3 CARDIOVERSIONS WELL. HE ALSO HAS HTN AND IS INSULIN DEPENDENT DIABETIC, WITH PERIPHERAL NEUROPATHY AND CHRONIC KNEE PAIN CARDIAC CATH DONE 11/05/[address] FOREMAN: CONCLUSION: 1. Moderate to severe distal circumflex artery, mid first obtuse marginal branch and proximal first diagonal artery, fairly small arteries not amendable to intervention 2. Otherwise mild to moderate disease nonobstructive disease 3. Normal left ventricular end-diastolic pressure DISCUSSION AND RECOMMENDATION: Patient was noted to be in atrial flutter during the procedure, started the procedure in sinus rhythm then at the end of the procedure he was in atrial flutter, he has history of palpitation. Stayed in atrial flutter. I will start him on Multaq and oral anticoagulation and planning to do electrical cardioversion in the morning if he did not convert back to sinus rhythm on his own. We discussed the possibility of referral for EP evaluation and ablation PCP: DR. FUENTES MENTAL HEALTH PROGRAM DIRECTOR: DR. FOREMAN LOCALLY AND DR. SPANN IN FOR ELECTROPHYSIOLOGY Allergies and Home Medications Allergies Coded Allergies: No Known Drug Allergies (Verified , 02/09/17) Patient Home Medication List Home Medication List Reviewed: Yes Apixaban (Eliquis) 5 Mg Tablet, 5 MG PO BID, (Reported) Entered as Reported by: CARLITOS MICHAEL on 03/27/22 0729 Aspirin (Aspirin EC) 81 Mg Tablet.dr 81 MG PO DAILY, (Reported) Entered as Reported by: CARLITOS MICHAEL on 7/29/22 0744 Atorvastatin Calcium (Atorvastatin Calcium) 20 Mg Tablet, 20 MG PO EVENING, (Reported) Entered as Reported by: CARLITOS MICHAEL on 03/27/22743 Biotin (Biotin) 10,000 Mcg Capsule, 30,000 MCG PO DAILY, (Reported) Entered as Reported by: CARLITOS MICHAEL on 03/27/22743 Clopidogrel Bisulfate (Plavix) 75 Mg Tablet, 75 MG PO EVENING, (Reported) Entered as Reported by: CARLITOS MICHAEL on 03/27/22743 Cyclobenzaprine HCl (Cyclobenzaprine HCl) 10 Mg Tablet, 10 MG PO PRN PRN for MUSCLE ACHES, (Reported) Entered as Reported by: CARLITOS MICHAEL on 03/27/22743 Cyproheptadine HCl (Cyproheptadine HCl) 4 Mg Tablet, 4 MG PO HS, (Reported) Entered as Reported by: CARLITOS MICHAEL on 03/27/22743 Diphenhydramine HCl (Diphenhydramine HCl) 25 Mg Capsule, 50 MG PO HS, (Reported) Entered as Reported by: CARLITOS MICHAEL on 03/27/22743 Duloxetine HCl (Duloxetine HCl) 60 Mg Capsule.dr, 120 MG PO DAILY, (Reported) Entered as Reported by: CARLITOS MICHAEL on 03/27/22743 Empagliflozin (Jardiance) 25 Mg Tablet, 25 MG PO, (Reported) Entered as Reported by: CARLITOS MICHAEL on 03/27/22743 Finasteride (Finasteride) 5 Mg Tablet, 5 MG PO EVENING, (Reported) Entered as Reported by: CARLITOS MICHAEL on 03/27/22743 Gabapentin (Neurontin) 300 Mg Capsule, 1,200 MG PO AM, (Reported) Entered as Reported by: CARLITOS MICHAEL on 03/27/22743 Gabapentin (Neurontin) 300 Mg Capsule, 1,500 MG PO EVENING, (Reported) Entered as Reported by: CARLITOS MICHAEL on 03/27/22743 Hydrocodone/Acetaminophen (Hydrocodone-Acetamin 5-325 mg) 5 Mg-325 Mg Tablet, 1 TAB PO PRN PRN for PAIN-MODERATE (5-7), (Reported) Entered as Reported by: CARLITOS MICHAEL on 03/27/22743 Insulin Aspart (Novolog Flexpen) 100 Unit/Ml (3 Ml) Solution, 18 UNITS SQ EVENING, (Reported) Entered as Reported by: CARLITOS MICHAEL on 03/27/22743 Insulin Aspart (Novolog Flexpen) 100 Unit/Ml (3 Ml) Solution, 18 UNITS SQ AM, (Reported) Entered as Reported by: CARLITOS MICHAEL on 03/27/22743 Insulin Aspart (Novolog Flexpen) 100 Unit/Ml (3 Ml) Solution, 16 UNITS SQ LUNCHTIME, (Reported) Entered as Reported by: CARLITOS MICHAEL on 03/27/22743 Insulin Detemir (Levemir Flextouch) 100 Unit/Ml (3 Ml) Insuln.pen, 42 UNIT SQ HS, (Reported) Entered as Reported by: CARLITOS MICHAEL on 03/27/22743 Lidocaine (Lidocaine 5% Patch) 5 % Adh..patch, 1 EACH TP PRN PRN for BACK PAIN, (Reported) Entered as Reported by: CARLITOS MICHAEL on 03/27/22743 Loratadine (Loratadine) 10 Mg Tablet, 10 MG PO DAILY, (Reported) Entered as Reported by: CARLITOS MICHAEL on 03/27/22743 Metformin HCl (Metformin HCl ER) 1,000 Mg Tab.er.24, 1,000 MG PO EVENING, (Reported) Entered as Reported by: CARLITOS MICHAEL on 03/27/22743 Metoprolol Succinate (Toprol Xl) 25 Mg Tab.er.24h, 25 MG PO DAILY Prescribed by: BE BAILEY on 07/05/22 1126 Multivitamin (Multivitamin) 1 Each Tablet, 1 EACH PO DAILY, (Reported) Entered as Reported by: CARLITOS MICHAEL on 03/27/22743 Pantoprazole Sodium (Pantoprazole Sodium) 40 Mg Tablet.dr, 40 MG PO BID, (Reported) Entered as Reported by: CARLITOS MICHAEL on 03/27/22743 Tamsulosin HCl (Flomax) 0.4 Mg Cap, 0.8 MG PO EVENING, (Reported) Entered as Reported by: CARLITOS MICHAEL on 03/27/22743 Trazodone HCl (Trazodone HCl) 100 Mg Tablet, 500 MG PO HS, (Reported) Entered as Reported by: CARLITOS MICHAEL on 03/27/22743 [[place]-3] , 300 MG PO BID, (Reported) Entered as Reported by: CARLITOS MICHAEL on 03/27/22743 Review of Systems Review of Systems Constitutional: no symptoms reported EENTM: No Symptoms Reported Respiratory: See HPI; Denies Cough; Shortness of Air Cardiovascular: See HPI, Chest Pain; Denies Edema; Irregular Heart Rate; Denies Lightheadedness, Denies Palpitations, Denies Syncope Gastrointestinal: No Symptoms Reported Genitourinary: No Symptoms Reported Musculoskeletal: see HPI, back pain Skin: no symptoms reported Psychiatric/Neurological: Anxiety Endocrine: No Symptoms Reported Hematologic/Lymphatic: No Symptoms Reported Past Kzrivxo-Ssqpot-Srwjjm Hx Patient Social History Tobacco Use?: No Substance use?: No Alcohol Use?: No Immunizations Up To Date Tetanus Booster (TDap): More than 5yrs Seasonal Allergies Seasonal Allergies: Yes Past Medical History Surgery/Hospitalization HX: IDDM, NEUROPATHY SX:PACEMAKER, CARDIAC ABLATION X 2 , CARDIOVERSION, LOOP RECORDER Surgeries: Yes Cardiac, Orthopedic, Pacemaker Respiratory: No Currently Using CPAP: No Currently Using BIPAP: No Cardiac: Yes (RBBB) Atrial Fibrillation, Coronary Artery Disease, High Cholesterol, Hypertension, Irregular Heartbeat Neurological: Yes Neuropathy Reproductive Disorders: No Sexually Transmitted Disease: No HIV/AIDS: No Genitourinary: Yes Prostate Problems Gastrointestinal: Yes Chronic Constipation Musculoskeletal: Yes Degenerate Disk Disease, Arthritis, Chronic Back Pain Endocrine: Yes Diabetes, Insulin dep HEENT: Yes Loss of Vision: Bilateral Hearing Impairment: Hard of Hearing, Bilateral Hearing Aide Cancer: No Did You Recieve Any Treatments: No Psychosocial: Yes Anxiety, PTSD Integumentary: No Blood Disorders: No Adverse Reaction/Blood Tranf: No Family Medical History No Pertinent Family Hx -CARDIOVERSIONS -CARDIAC ABLATION X 2 -LOOP RECORDER CARDIAC CATH 11/05/[address] FOREMAN: CONCLUSION: 1. Moderate to severe distal circumflex artery, mid first obtuse marginal branch and proximal first diagonal artery, fairly small arteries not amendable to intervention 2. Otherwise mild to moderate disease nonobstructive disease 3. Normal left ventricular end-diastolic pressure DISCUSSION AND RECOMMENDATION: Patient was noted to be in atrial flutter during the procedure, started the procedure in sinus rhythm then at the end of the procedure he was in atrial flutter, he has history of palpitation. Stayed in atrial flutter. I will start him on Multaq and oral anticoagulation and planning to do electrical cardioversion in the morning if he did not convert back to sinus rhythm on his own. We discussed the possibility of referral for EP evaluation and ablation Physical Exam Vital Signs Vital Signs - First Documented 03/19/23 03/19/23 00:34 00:50 Temp 37.6 Pulse 99 Resp 16 B/P (MAP) 134/65 (88) Pulse Ox 97 O2 Delivery Room Air Capillary Refill : Height, Weight, BMI Height: 6'0" Weight: 195lbs. 0.0oz. 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 Norm as Tested Skin: Normal Color, Warm/Dry Progress/Results/Core Measures Results/Orders Lab Results Laboratory Tests Test 03/19/23 00:42 Range/Units White Blood Count 9.4 4.3-11.0 10^3/uL Red Blood Count 4.46 4.30-5.52 10^6/uL Hemoglobin 13.0 L 13.3-17.7 g/dL Hematocrit 40 40-54 % Mean Corpuscular Volume 90 80-99 fL Mean Corpuscular Hemoglobin 29 25-34 pg Mean Corpuscular Hemoglobin Concent 32 32-36 g/dL Red Cell Distribution Width 15.0 H 10.0-14.5 % Platelet Count 227 130-400 10^3/uL Mean Platelet Volume 9.5 9.0-12.2 fL Immature Granulocyte % (Auto) 2 % Neutrophils (%) (Auto) 77 H 42-75 % Lymphocytes (%) (Auto) 11 L 12-44 % Monocytes (%) (Auto) 7 0-12 % Eosinophils (%) (Auto) 2 0-10 % Basophils (%) (Auto) 1 0-10 % Neutrophils # (Auto) 7.3 1.8-7.8 10^3/uL Lymphocytes # (Auto) 1.0 1.0-4.0 10^3/uL Monocytes # (Auto) 0.6 0.0-1.0 10^3/uL Eosinophils # (Auto) 0.2 0.0-0.3 10^3/uL Basophils # (Auto) 0.1 0.0-0.1 10^3/uL Immature Granulocyte # (Auto) 0.2 H 0.0-0.1 10^3/uL Prothrombin Time 17.4 H 12.2-14.7 SEC INR Comment 1.4 0.8-1.4 Activated Partial Thromboplast Time 43 H 24-35 SEC D-Dimer < 0.27 0.00-0.49 UG/ML Sodium Level 137 135-145 MMOL/L Potassium Level 4.4 3.6-5.0 MMOL/L Chloride Level 105 98-107 MMOL/L Carbon Dioxide Level 20 L 21-32 MMOL/L Anion Gap 12 5-14 MMOL/L Blood Urea Nitrogen 25 H 7-18 MG/DL Creatinine 1.38 H 0.60-1.30 MG/DL Estimat Glomerular Filtration Rate 53 BUN/Creatinine Ratio 18 Glucose Level 165 H 70-105 MG/DL Calcium Level 9.2 8.5-10.1 MG/DL Corrected Calcium 9.1 8.5-10.1 MG/DL Magnesium Level 2.1 1.6-2.4 MG/DL Total Bilirubin 0.5 0.1-1.0 MG/DL Aspartate Amino Transf (AST/SGOT) 28 5-34 U/L Alanine Aminotransferase (ALT/SGPT) 36 0-55 U/L Alkaline Phosphatase 107 40-136 U/L Total Creatine Kinase 90 30-200 U/L Creatine Kinase MB 4.5 <6.6 NG/ML Myoglobin 79.9 10.0-92.0 NG/ML Troponin I < 0.028 <0.028 NG/ML B-Type Natriuretic Peptide 59.2 <100.0 PG/ML Total Protein 7.1 6.4-8.2 GM/DL Albumin 4.1 3.2-4.5 GM/DL Amylase Level 83 25-125 U/L Lipase 153 H 8-78 U/L My Orders Orders - CHRIS LAZO DO Ekg Tracing (03/19/23 00:32) Cbc With Automated Diff (03/19/23 00:32) Magnesium (03/19/23 00:32) Chest 1 View, Ap/Pa Only (03/19/23 00:32) Ekg Tracing (03/19/23 00:32) Comprehensive Metabolic Panel (03/19/23 00:32) Myoglobin Serum (03/19/23 00:32) Protime With Inr (03/19/23 00:32) Partial Thromboplastin Time (03/19/23 00:32) O2 (03/19/23 00:32) Monitor-Rhythm Ecg Trace Only (03/19/23 00:32) Ed Iv/Invasive Line Start (03/19/23 00:32) Creatine Kinase (03/19/23 00:32) Creatine Kinase Mb (03/19/23 00:32) Lipase (03/19/23 00:32) Amylase (03/19/23 00:32) Bnp Gallo (03/19/23 00:32) Fibrin Degradation Products (03/19/23 00:32) Troponin I Gallo (03/19/23 00:32) Nitroglycerin 0.4 Mg Btl 25's (Nitrostat (03/19/23 00:45) Aspirin Chewable Tablet (Baby Aspirin Ch (03/19/23 00:45) Ed Iv/Invasive Line Start (03/19/23 01:39) Ns Iv 1000 Ml (Sodium Chloride 0.9%) (03/19/23 01:45) Fentanyl Inj (Sublimaze Injection) (03/19/23 01:45) Medications Given in ED Current Medications Medications Dose Ordered Sig/Carlos Route Start Time Stop Time Status Last Admin Dose Admin Aspirin 324 mg ONCE ONCE PO 03/19/23 00:45 03/19/23 00:46 DC 03/19/23 00:58 324 MG Fentanyl Citrate 50 mcg ONCE ONCE IVP 03/19/23 01:45 03/19/23 01:46 DC 03/19/23 01:56 50 MCG Nitroglycerin 0.4 mg UD PRN SL 03/19/23 00:45 03/19/23 03:28 DC 03/19/23 00:58 0.4 MG Vital Signs/I&O 03/19/23 03/19/23 00:34 00:50 Temp 37.6 Pulse 99 Resp 16 B/P (MAP) 134/65 (88) Pulse Ox 97 O2 Delivery Room Air Room Air Progress Progress Note : Progress Note VITALS ON ARRIVAL: TEMP: 37.6=99.6, HR 92, BP 134/65, RR 12, O2 SAT 97% ON ROOM AIR GIVEN: -ASPIRIN -NTG X 1--SLIGHT IMPROVEMENT IN PAIN, BUT BP DROPPED TO LOW 100'S/SYSTOLIC, SO NO FURTHER NTG GIVEN -IV FLUIDS -FENTANYL WITH IMPROVEMENT IN PAIN UNEVENTFUL ER STAY LABS INCLUDING CBC, CMP, TROPONIN, BNP, D-DIMER UNREMARKABLE EKG IS UNCHANGED FROM PREVIOUS CXR IS UNREMARKABLE PENDING RADIOLOGIST REVIEW VITALS AT TIME OF ADMIT: TEMP 36.7, BP 128/84, HR 74, RR 12, O2 SAT 97% ON ROOM AIR DISCUSSED TEST RESULTS, NEED FOR ADMIT AND PT IS AGREEABLE TO PLAN REVIEWED PRIOR RECORDS INCLUDING ER VISITS, ADMITS/H&P'S/CONSULTS/DISCHARGE SUMMARIES, TESTS/PROCEDURES Initial ECG Impression Date: Mar 19, 2023 Initial ECG Impression Time: 00:38 Initial ECG Rate: 90 Initial ECG Rhythm: A Fib/Flutter (WITH RBBB) Initial ECG Intervals OR -N/A QRS 142 QT/QTC 378/426 Initial ECG Impression: Atrial Fibrillation Initial ECG Comparisson: Unchanged Comment INTERPRETED BY ME Diagnostic Imaging Comments CXR--NO ACUTE PROCESS, PENDING RADIOLOGIST REVIEW Reviewed: Reviewed by Me Departure Communication (Admissions) 0140--SPOKE WITH DR. KHAN, HOSPITALIST, ACCEPTS PT FOR ADMIT. Impression Primary Impression: Chest pain Additional Impressions: Chronic atrial fibrillation CHRONIC RIGHT BUNDLE BRANCH BLOCK Coronary artery disease HTN (hypertension) IDDM (insulin dependent diabetes mellitus) Disposition: ADMITTED INPATIENT Condition: Improved Admissions Decision to Admit Reason: Admit from ER (General) Decision to Admit/Date: Mar 19, 2023 Time/Decision to Admit Time: 01:40 Departure-Patient Inst. Referrals: BRENDA FUENTES DO (PCP/Family) Primary Care Physician CHRIS LAZO DO Mar 19, 2023 00:44
[2023-03-19] MEDS ORDERED: NITROGLYCERIN 0.4 MG SL TABS BTL 25'S SL PRN (00:45)
[2023-03-19] MEDS ORDERED: ASPIRIN 81 MG CHEWABLE TABLET PO ONE (00:45)
[2023-03-19 00:55] LABS: BASOPHILS # (AUTO) 0.1 10^3/uL (0.0-0.1); BASOPHILS % (AUTO) 1 % (0-10); EOSINOPHILS # (AUTO) 0.2 10^3/uL (0.0-0.3); EOSINOPHILS % (AUTO) 2 % (0-10); HEMATOCRIT 40 % (40-54); LYMPHOCYTES % (AUTO) 11 % (12-44); MEAN CORPUSCULAR HEMOGLOBIN 29 pg (25-34); MEAN CORPUSCULAR HGB CONC 32 g/dL (32-36); MEAN CORPUSCULAR VOLUME 90 fL (80-99); MEAN PLATELET VOLUME 9.5 fL (9.0-12.2); MONOCYTES # (AUTO) 0.6 10^3/uL (0.0-1.0); MONOCYTES % (AUTO) 7 % (0-12); NEUTROPHILS # (AUTO) 7.3 10^3/uL (1.8-7.8); NEUTROPHILS % (AUTO) 77 % (42-75); PLATELET COUNT 227 10^3/uL (130-400); WHITE BLOOD COUNT 9.4 10^3/uL (4.3-11.0)
[2023-03-19 01:03] LABS: ALBUMIN 4.1 GM/DL (3.2-4.5)
[2023-03-19 01:04] LABS: CHLORIDE 105 MMOL/L (98-107); POTASSIUM 4.4 MMOL/L (3.6-5.0); SODIUM 137 MMOL/L (135-145)
[2023-03-19 01:05] LABS: AMYLASE 83 U/L (25-125); CALCIUM 9.2 MG/DL (8.5-10.1)
[2023-03-19 01:06] LABS: GLUCOSE 165 MG/DL (70-105); TOTAL PROTEIN 7.1 GM/DL (6.4-8.2)
[2023-03-19 01:07] LABS: CARBON DIOXIDE 20 MMOL/L (21-32)
[2023-03-19 01:08] LABS: BILIRUBIN,TOTAL 0.5 MG/DL (0.1-1.0)
[2023-03-19 01:09] LABS: ALKALINE PHOSPHATASE 107 U/L (40-136)
[2023-03-19 01:10] LABS: CREATININE SERUM 1.38 MG/DL (0.60-1.30); GFR ESTIMATED 53
[2023-03-19 01:11] LABS: BUN/CREATININE RATIO 18
[2023-03-19 01:12] LABS: ALANINE AMINOTRANSFERASE 36 U/L (0-55); MAGNESIUM 2.1 MG/DL (1.6-2.4)
[2023-03-19 01:13] LABS: LIPASE 153 U/L (8-78)
[2023-03-19 01:20] LABS: CREATINE KINASE MB 4.5 NG/ML (<6.6)
[2023-03-19 01:29] LABS: INR 1.4 (0.8-1.4); PROTHROMBIN TIME PATIENT 17.4 SEC (12.2-14.7)
[2023-03-19 01:30] LABS: PARTIAL THROMBOPLASTIN TIME 43 SEC (24-35)
[2023-03-19 01:37] LABS: FIBRIN DEGRADATION PRODUCTS < 0.27 UG/ML (0.00-0.49)
[2023-03-19 01:39] LABS: CREATINE KINASE 90 U/L (30-200)
[2023-03-19] MEDS ORDERED: NS IV 1000 ML 1,000 ML IV SCH ×2 (01:45→03:30)
[2023-03-19] MEDS ORDERED: fentaNYL INJ 100 MCG/2 ML AMP IVP ONE (01:45)
[2023-03-19] MEDS ORDERED: ACETAMINOPHEN 500 MG TABLET PO PRN (03:30)
[2023-03-19] MEDS ORDERED: ONDANSETRON 4 MG/2 ML (SDV) Z0FRAN IVP PRN (03:30)
[2023-03-19] MEDS ORDERED: fentaNYL INJ 100 MCG/2 ML AMP IV PRN (03:30)
[2023-03-19 04:00] VITALS: BP 103/72
--- NOTE | 2023-03-19 05:13 | Diagnostic Imaging Report ---
INDICATION: Chest pain COMPARISON: 07/04/2022 FINDINGS: Single frontal view of the chest demonstrates normal heart size and pulmonary vascularity. The lungs are well aerated and clear. No large pleural effusion or pneumothorax is seen. The visualized osseous structures show no acute abnormalities. Left-sided dual-lead pacemaker is noted. IMPRESSION: 1. No acute cardiopulmonary process. Dictated by: Dictated on workstation # [id number]
[2023-03-19 08:00] VITALS: BP 91/78
[2023-03-19] MEDS ORDERED: ASPIRIN enteric coated 81MG TABLET PO SCH (09:00)
[2023-03-19] MEDS ORDERED: HYDROcodone/ACETAMINOPHEN 5 MG/325 MG TABLET PO PRN (10:00)
[2023-03-19 12:16] VITALS: BP 124/82
--- NOTE | 2023-03-19 15:23 | Consultation-Cardiology ---
HPI-Cardiology Cardiology Consultation: Date of Consultation 03/19/23 Date of Admission Attending Physician Odell Castillo DO Admitting Physician Admitting Physician: Thuy Neal DO Attending Physician: Rosa M Maher MD Consulting Physician Benny CHEUNG MD HPI: Time Seen by a Provider: 15:18 Chief Complaint: Chest discomfort This is a 73-year-old gentleman who presented with chest discomfort, upper back pain, lower back pain. When I saw the patient he was not having any further chest pain. He denies any other cardiac complaints. Patient has history of coronary angiography done almost a year ago with Dr. Sofia which showed mild to moderate nonobstructive disease, distal disease which was not amenable to PCI. Patient also has history of atrial flutter and atrial fibrillation. Has undergone 2 cardioversions and 3 ablation. His last ablation was in October 2022. He is planning to undergo another ablation in March 2023. Patient has history of diabetes and hypertension. Review of Systems-Cardiology Review of Systems Constitutional: no symptoms reported Eyes: no symptoms reported Ears/Nose/Throat: no symptoms reported Respiratory: shortness of breath Cardiovascular: chest pain Gastrointestinal: no symptoms reported Genitourinary: no symptoms reported Musculoskeletal: As describe under HPI, back pain, neck pain Skin: no symptoms reported Psychiatric/Neurological: no symptoms reported Hematologic: no symptoms reported XFU-[id number]-Xnnmvd Hx Patient Social History Smoking Status: Never a Smoker 2nd Hand Smoke Exposure: No Alcohol Use?: No Pt feels they are or have been: No Immunizations Up To Date Tetanus Booster (TDap): More than 5yrs Date of Pneumonia Vaccine: Jun 08, 2016 Date of Influenza Vaccine: Jul 04, 2022 Past Medical History PMH As described under Assessment. Allergies and Home Medications Allergies Coded Allergies: No Known Drug Allergies (Verified , 02/09/17) Patient Home Medication List Home Medication List Reviewed: Yes Apixaban (Eliquis) 5 Mg Tablet, 5 MG PO BID, (Reported) Entered as Reported by: CARLITOS MICHAEL on 03/27/22 0729 Aspirin (Aspirin EC) 81 Mg Tablet.dr, 81 MG PO DAILY, (Reported) Entered as Reported by: CARLITOS IMCHAEL on 03/27/22 0744 Atorvastatin Calcium (Atorvastatin Calcium) 20 Mg Tablet, 20 MG PO EVENING, (Reported) Entered as Reported by: CARLITOS MICHAEL on 03/27/22743 Biotin (Biotin) 10,000 Mcg Capsule, 30,000 MCG PO DAILY, (Reported) Entered as Reported by: CARLITOS MICHAEL on 03/27/22743 Clopidogrel Bisulfate (Plavix) 75 Mg Tablet, 75 MG PO EVENING, (Reported) Entered as Reported by: CARLITOS MICHAEL on 03/27/22743 Cyclobenzaprine HCl (Cyclobenzaprine HCl) 10 Mg Tablet, 10 MG PO PRN PRN for MUSCLE ACHES, (Reported) Entered as Reported by: CARLITOS IMCHAEL on 03/27/22743 Cyproheptadine HCl (Cyproheptadine HCl) 4 Mg Tablet, 4 MG PO HS, (Reported) Entered as Reported by: CARLITOS MICHAEL on 03/27/22743 Diphenhydramine HCl (Diphenhydramine HCl) 25 Mg Capsule, 50 MG PO HS, (Reported) Entered as Reported by: CARLITOS MICHAEL on 03/27/22743 Duloxetine HCl (Duloxetine HCl) 60 Mg Capsule.dr, 120 MG PO DAILY, (Reported) Entered as Reported by: CARLITOS MICHAEL on 03/27/22743 Empagliflozin (Jardiance) 25 Mg Tablet, 25 MG PO, (Reported) Entered as Reported by: CARLITOS MICHAEL on 03/27/22743 Finasteride (Finasteride) 5 Mg Tablet, 5 MG PO EVENING, (Reported) Entered as Reported by: CARLITOS MICHAEL on 03/27/22743 Gabapentin (Neurontin) 300 Mg Capsule, 1,200 MG PO AM, (Reported) Entered as Reported by: CARLITOS MICHAEL on 03/27/22743 Gabapentin (Neurontin) 300 Mg Capsule, 1,500 MG PO EVENING, (Reported) Entered as Reported by: CARLITOS MICHAEL on 03/27/22743 Hydrocodone/Acetaminophen (Hydrocodone-Acetamin 5-325 mg) 5 Mg-325 Mg Tablet, 1 TAB PO PRN PRN for PAIN-MODERATE (5-7), (Reported) Entered as Reported by: CARLITOS MICHAEL on 03/27/22743 Insulin Aspart (Novolog Flexpen) 100 Unit/Ml (3 Ml) Solution, 18 UNITS SQ EVENING, (Reported) Entered as Reported by: CARLITOS MICHAEL on 03/27/22743 Insulin Aspart (Novolog Flexpen) 100 Unit/Ml (3 Ml) Solution, 18 UNITS SQ AM, (Reported) Entered as Reported by: CARLITOS MICHAEL on 03/27/22743 Insulin Aspart (Novolog Flexpen) 100 Unit/Ml (3 Ml) Solution, 16 UNITS SQ LUNCHTIME, (Reported) Entered as Reported by: CARLITOS MICHAEL on 03/27/22743 Insulin Detemir (Levemir Flextouch) 100 Unit/Ml (3 Ml) Insuln.pen, 42 UNIT SQ HS, (Reported) Entered as Reported by: CARLITOS MICHAEL on 03/27/22743 Lidocaine (Lidocaine 5% Patch) 5 % Adh..patch, 1 EACH TP PRN PRN for BACK PAIN, (Reported) Entered as Reported by: CARLITOS MICHAEL on 03/27/22743 Loratadine (Loratadine) 10 Mg Tablet, 10 MG PO DAILY, (Reported) Entered as Reported by: CARLITOS MICHAEL on 03/27/22743 Metformin HCl (Metformin HCl ER) 1,000 Mg Tab.er.24, 1,000 MG PO EVENING, (Reported) Entered as Reported by: CARLITOS MICHAEL on 03/27/22743 Metoprolol Succinate (Toprol Xl) 25 Mg Tab.er.24h, 25 MG PO DAILY Prescribed by: BE BAILEY on 07/05/22 1126 Multivitamin (Multivitamin) 1 Each Tablet, 1 EACH PO DAILY, (Reported) Entered as Reported by: CARLITOS MICHAEL on 03/27/22743 Pantoprazole Sodium (Pantoprazole Sodium) 40 Mg Tablet.dr, 40 MG PO BID, (Reported) Entered as Reported by: CARLITOS MICHAEL on 03/27/22743 Tamsulosin HCl (Flomax) 0.4 Mg Cap, 0.8 MG PO EVENING, (Reported) Entered as Reported by: CARLITOS MICHAEL on 03/27/22743 Trazodone HCl (Trazodone HCl) 100 Mg Tablet, 500 MG PO HS, (Reported) Entered as Reported by: CARLITOS MICHAEL on 03/27/22743 [[place]-3] , 300 MG PO BID, (Reported) Entered as Reported by: CARLITOS MICHAEL on 03/27/22743 Exam Vital Signs Vital Signs Date Time Temp Pulse Resp B/P (MAP) Pulse Ox O2 Delivery O2 Flow Rate FiO2 03/19/23 12:16 36.3 80 15 124/82 (96) 92 Room Air Physical Exam Constitutional: No respiratory distress. Chest: Clear to auscultation bilaterally. CVS: Irregularly irregular rhythm. Musculoskeletal: Backache. No pedal edema. Labs Laboratory Tests Test 03/19/23 00:42 03/19/23 05:35 03/19/23 13:59 Range/Units White Blood Count 9.4 4.3-11.0 10^3/uL Red Blood Count 4.46 4.30-5.52 10^6/uL Hemoglobin 13.0 L 13.3-17.7 g/dL Hematocrit 40 40-54 % Mean Corpuscular Volume 90 80-99 fL Mean Corpuscular Hemoglobin 29 25-34 pg Mean Corpuscular Hemoglobin Concent 32 32-36 g/dL Red Cell Distribution Width 15.0 H 10.0-14.5 % Platelet Count 227 130-400 10^3/uL Mean Platelet Volume 9.5 9.0-12.2 fL Immature Granulocyte % (Auto) 2 % Neutrophils (%) (Auto) 77 H 42-75 % Lymphocytes (%) (Auto) 11 L 12-44 % Monocytes (%) (Auto) 7 0-12 % Eosinophils (%) (Auto) 2 0-10 % Basophils (%) (Auto) 1 0-10 % Neutrophils # (Auto) 7.3 1.8-7.8 10^3/uL Lymphocytes # (Auto) 1.0 1.0-4.0 10^3/uL Monocytes # (Auto) 0.6 0.0-1.0 10^3/uL Eosinophils # (Auto) 0.2 0.0-0.3 10^3/uL Basophils # (Auto) 0.1 0.0-0.1 10^3/uL Immature Granulocyte # (Auto) 0.2 H 0.0-0.1 10^3/uL Prothrombin Time 17.4 H 12.2-14.7 SEC INR Comment 1.4 0.8-1.4 Activated Partial Thromboplast Time 43 H 24-35 SEC D-Dimer < 0.27 0.00-0.49 UG/ML Sodium Level 137 135-145 MMOL/L Potassium Level 4.4 3.6-5.0 MMOL/L Chloride Level 105 98-107 MMOL/L Carbon Dioxide Level 20 L 21-32 MMOL/L Anion Gap 12 5-14 MMOL/L Blood Urea Nitrogen 25 H 7-18 MG/DL Creatinine 1.38 H 0.60-1.30 MG/DL Estimat Glomerular Filtration Rate 53 BUN/Creatinine Ratio 18 Glucose Level 165 H 70-105 MG/DL Calcium Level 9.2 8.5-10.1 MG/DL Corrected Calcium 9.1 8.5-10.1 MG/DL Magnesium Level 2.1 1.6-2.4 MG/DL Total Bilirubin 0.5 0.1-1.0 MG/DL Aspartate Amino Transf (AST/SGOT) 28 5-34 U/L Alanine Aminotransferase (ALT/SGPT) 36 0-55 U/L Alkaline Phosphatase 107 40-136 U/L Total Creatine Kinase 90 30-200 U/L Creatine Kinase MB 4.5 <6.6 NG/ML Myoglobin 79.9 10.0-92.0 NG/ML Troponin I < 0.028 0.033 H < 0.028 <0.028 NG/ML B-Type Natriuretic Peptide 59.2 <100.0 PG/ML Total Protein 7.1 6.4-8.2 GM/DL Albumin 4.1 3.2-4.5 GM/DL Amylase Level 83 25-125 U/L Lipase 153 H 8-78 U/L Triglycerides Level 170 H <150 MG/DL Cholesterol Level 82 < 200 MG/DL LDL Cholesterol Direct 43 1-129 MG/DL VLDL Cholesterol 34 5-40 MG/DL HDL Cholesterol 22 L 40-60 MG/DL ECG Impression ECG Initial ECG Impression: Atrial Fibrillation A/P-Cardiology Assessment/Admission Diagnosis Longstanding persistent atrial fibrillation, Atrial flutter, Diabetes, Hypertension, Chest discomfort, CAD Plan Longstanding persistent atrial fibrillation, undergoing third atrial fibrillation ablation on March 2023. Patient is on uninterrupted oral anticoagulation. Atrial flutter, Diabetes, Hypertension, Chest discomfort, first troponin was negative. Second troponin was borderline elevated at 0.033. Normal is below 0.028. Third troponin is less than 0.028. I discussed at length with the patient. He had coronary angiography done within the last 1 to 1-1/2-year [address] Dr[address] Sofia. Mild to moderate nonobstructive disease. Distal disease which was not amenable to PCI. Patient is on aspirin/Plavix. Okay to discharge and follow-up with Dr. Sofia within the week. If patient has any recurrent chest pain he will seek immediate medical attentio nBenny ZAMORANO MD Mar 19, 2023 15:23
[2023-03-19] MEDS ORDERED: TIZA-186 PO (15:28)
[2023-03-19] MEDS ORDERED: RT-ALBUINH INH (15:28)
[2023-03-19] MEDS ORDERED: DRON400T6 PO (15:28)
[2023-03-19] MEDS ORDERED: INSU100I76 SQ (15:28)
[2023-03-19] MEDS ORDERED: SEMA1PEN3 SQ (15:28)
[2023-03-19] MEDS ORDERED: OMEG1CAP24 PO (15:28)
== END 2023-03-19 16:20 | disposition home or self-care (01) ==
LOC: EDUNIT# 00:29 → ER 00:31 → CSD 02:14
PROVIDERS: ADMIT Internal Medicine; ATTEND Internal Medicine
DX: I48.11 Longstanding persistent atrial fibrillation (principal); I48.92 Unspecified atrial flutter; I10 Essential (primary) hypertension; I25.10 Atherosclerotic heart disease of native coronary artery without angina pectoris; I48.20 Chronic atrial fibrillation, unspecified; I45.10 Unspecified right bundle-branch block; M25.569 Pain in unspecified knee; G89.29 Other chronic pain; E11.42 Type 2 diabetes mellitus with diabetic polyneuropathy; Z79.4 Long term (current) use of insulin; Z79.01 Long term (current) use of anticoagulants
CPT/HCPCS: 71045; 80053; 80061; 82150; 82550; 82553; 83690; 83735; 83874; 83880; 84484; 85025; 85379; 85610; 85730; 93005; 93041; 96374; 99284; G0378; 36415

== ENCOUNTER 2023-04-03 11:08 | Inpatient (IN) | payer MEDICARE ==
[~2023-04-03] VITALS: Ht 182.8 cm; Wt 91.8 kg
[~2023-04-03 11:08] MED LIST changes: +INSU100I76 SQ; +OMEG1CAP24 PO; +RT-ALBUINH INH; +SEMA1PEN3 SQ; +TIZA-186 PO
--- NOTE | 2023-04-03 11:53 | ED Cardiac General ---
History of Present Illness General Chief Complaint: Cardiac/General Problems Stated Complaint: COUGHING UP BLOOD Nursing Triage Note: Pt presents to ER with complaints of cough, for months, but reports noted blood in sputum this morning. Pt reports having cardiac ablasion 03/31/23 at [facility]. Reports feelings of fatigue, felt as though his heart was racing this morning and spouse reports that pts blood pressure was low this morning. Pt currently denies complaints of chest pain/SOA Source: patient, family Exam Limitations: no limitations (NEHA LEE APRN) History of Present Illness Date Seen by Provider: Apr 03, 2023 Time Seen by Provider: 11:38 Initial Comments 73-year-old male presents to the ER with complaint of fatigue, heart racing, low blood pressure, and 1 episode of coughing up bloody sputum. Patient had a cardiac ablation on 03/31 for atrial fibrillation at [facility] by Dr. Downing. Patient reports that he has been fatigued for a while. He reports that he has had a cough for the last couple of months, reports he normally has thick white sputum, but states he had 1 episode of small amount of bloody sputum today. Patient's reports that this morning patient was complaining of his heart racing, she checked his blood pressure twice and reported that his systolic blood pressure was under 100 both times. She is uncertain what his heart rate was. He denies current heart racing. Heart rate and blood pressure are normal at this time. Denies fever, chest pain, shortness of air, abdominal pain, nausea, vomiting. Patient was found to have low oxygen saturation upon arrival was 85% on room air, patient was placed on 2 L of O2 via nasal cannula by nursing staff. Patient does not wear oxygen at home. (NEHA LEE APRN) Allergies and Home Medications Allergies Coded Allergies: No Known Drug Allergies (Verified , 02/09/17) Patient Home Medication List Home Medication List Reviewed: Yes (NEHA LEE APRN) Albuterol Sulfate (Ventolin Hfa) 1 Puff Puff, 2 PUFF INH Q4H PRN for SHORTNESS OF BREATH, (Reported) Entered as Reported by: CLOVIS COTO on 03/19/23 1528 Last Action: Reviewed Apixaban (Eliquis) 5 Mg Tablet, 5 MG PO BID, (Reported) Entered as Reported by: CARLITOS MICHAEL on 03/27/22728 Last Action: Reviewed Atorvastatin Calcium (Atorvastatin Calcium) 20 Mg Tablet, 20 MG PO EVENING, (Reported) Entered as Reported by: CARLITOS MICHAEL on 03/27/22743 Last Action: Reviewed Biotin (Biotin) 10,000 Mcg Capsule, 10,000 MCG PO BID, (Reported) Entered as Reported by: CARLITOS MICHAEL on 03/27/22743 Last Action: Reviewed Diphenhydramine HCl (Diphenhydramine HCl) 50 Mg Capsule, 50 MG PO HS, (Reported) Entered as Reported by: LEANDRO SANDY on 04/03/231443 Last Action: New Order Dronedarone HCl (Multaq) 400 Mg Tablet, 400 MG PO BID, (Reported) Entered as Reported by: CLOVIS COTO on 03/19/231527 Last Action: Reviewed Duloxetine HCl (Duloxetine HCl) 60 Mg Capsule.dr, 120 MG PO DAILY, (Reported) Entered as Reported by: CARLITOS MICHAEL on 03/27/22743 Last Action: Reviewed Empagliflozin (Jardiance) 25 Mg Tablet, 25 MG PO DAILY, (Reported) Entered as Reported by: CARLITOS MICHAEL on 03/27/22743 Last Action: Reviewed Finasteride (Finasteride) 5 Mg Tablet, 5 MG PO HS, (Reported) Entered as Reported by: CARLITOS MICHAEL on 03/27/22743 Last Action: Reviewed Furosemide (Furosemide) 20 Mg Tablet, 20 MG PO DAILY, (Reported) Entered as Reported by: LEANDRO SANDY on 04/03/231443 Last Action: New Order Gabapentin (Gabapentin) 600 Mg Tablet, 1,200 MG PO BID, (Reported) Entered as Reported by: LEANDRO SANDY on 04/03/231443 Last Action: New Order Hydrocodone/Acetaminophen (Hydrocodone-Acetamin 5-325 mg) 5 Mg-325 Mg Tablet, 1 TAB PO Q6H PRN for PAIN-BREAKTHROUGH, (Reported) Entered as Reported by: LEANDRO SANDY on 04/03/231443 Last Action: New Order Insulin Aspart (Novolog Flexpen) 100 Unit/Ml (3 Ml) Solution, 12 UNITS SQ 0800,1200, (Reported) Entered as Reported by: CARLITOS MICHAEL on 03/27/22743 Last Action: Reviewed Insulin Determir (Levemir) 100 Unit/Ml Soln, 42 UNITS SQ HS, (Reported) Entered as Reported by: LEANDRO SANDY on 04/03/231443 Last Action: New Order Lidocaine (Lidocaine 5% Patch) 5 % Adh..patch, 2 EACH TP DAILY PRN for Neuropathic pain, (Reported) Entered as Reported by: LEANDRO SANDY on 04/03/231443 Last Action: New Order Loratadine (Loratadine) 10 Mg Tablet, 10 MG PO DAILY, (Reported) Entered as Reported by: CARLITOS MICHAEL on 03/27/22743 Last Action: Reviewed Multivitamin (Multivitamin) 1 Each Tablet, 1 EACH PO DAILY, (Reported) Entered as Reported by: CARLITOS MICHAEL on 03/27/22743 Last Action: Reviewed Nitroglycerin (Nitroglycerin) 0.4 Mg Tab.subl, 0.4 MG SL PRN, (Reported) Entered as Reported by: LEANDRO SANDY on 04/03/231443 Last Action: New Order [place]-3 Fatty Acids/Fish Oil ([place] 3 Fish Oil Softgel) 684 Mg-1,200 Mg Capsule.dr, 1 EACH PO BID, (Reported) Entered as Reported by: CLOVIS COTO on 03/19/231527 Last Action: Reviewed Pantoprazole Sodium (Pantoprazole Sodium) 40 Mg Tablet.dr, 40 MG PO BID, (Reported) Entered as Reported by: CARLITOS MICHAEL on 03/27/22743 Last Action: Reviewed Potassium Chloride (Potassium Chloride) 10 Meq Capsule.er, 10 MEQ PO DAILY, (Reported) Entered as Reported by: LEANDRO SANDY on 04/03/231443 Last Action: New Order Semaglutide (Ozempic) 1 Mg/0.75 Ml (4 Mg/3 Ml) Pen.injctr, 1 MG SQ TUES, (Reported) Entered as Reported by: CLOVIS COTO on 03/19/231527 Last Action: Reviewed Sucralfate (Carafate) 1 Gram Tablet, 1 GM PO BIDAC, (Reported) Entered as Reported by: LEANDRO SANDY on 04/03/231443 Last Action: New Order Tamsulosin HCl (Flomax) 0.4 Mg Cap, 0.8 MG PO DAILY, (Reported) Entered as Reported by: LEANDRO SANDY on 04/03/231443 Last Action: New Order Tizanidine HCl (Tizanidine HCl) 4 Mg Tablet, 2 MG PO TID PRN for MUSCLE SPASMS, (Reported) Entered as Reported by: CLOVIS COTO on 03/19/23 1528 Last Action: Continued Review of Systems Review of Systems Constitutional: see HPI (NEHA LEE APRN) Past Chwisfi-Yygwyr-Xxbnoo Hx Immunizations Up To Date Tetanus Booster (TDap): More than 5yrs Influenza Vaccine Up-to-Date: Yes; Up-to-Date First/Initial COVID19 Vaccinat: denies being vaccinated for covid (NEHA LEE APRN) Seasonal Allergies Seasonal Allergies: Yes (JESUSNEHA VANG APRN) Past Medical History Surgery/Hospitalization HX: A-flutter, A-fib, HTN, pacermaker, DM, cardiac ablasion Surgeries: Yes Cardiac, Orthopedic, Pacemaker Respiratory: No Currently Using CPAP: No Currently Using BIPAP: No Cardiac: Yes (RBBB) Atrial Fibrillation, Coronary Artery Disease, High Cholesterol, Hypertension, Irregular Heartbeat Neurological: Yes Neuropathy Reproductive Disorders: No Sexually Transmitted Disease: No HIV/AIDS: No Genitourinary: Yes Prostate Problems Gastrointestinal: Yes Chronic Constipation Musculoskeletal: Yes Degenerate Disk Disease, Arthritis, Chronic Back Pain Endocrine: Yes Diabetes, Insulin dep HEENT: Yes Loss of Vision: Bilateral Hearing Impairment: Hard of Hearing, Bilateral Hearing Aide Cancer: No Did You Recieve Any Treatments: No Psychosocial: Yes Anxiety, PTSD Integumentary: No Blood Disorders: No Adverse Reaction/Blood Tranf: No (NEHA LEE APRN) Family Medical History No Pertinent Family Hx -CARDIOVERSIONS -CARDIAC ABLATION X 2 -LOOP RECORDER CARDIAC CATH 11/05/[address] FOREMAN: CONCLUSION: 1. Moderate to severe distal circumflex artery, mid first obtuse marginal branch and proximal first diagonal artery, fairly small arteries not amendable to intervention 2. Otherwise mild to moderate disease nonobstructive disease 3. Normal left ventricular end-diastolic pressure DISCUSSION AND RECOMMENDATION: Patient was noted to be in atrial flutter during the procedure, started the procedure in sinus rhythm then at the end of the procedure he was in atrial flutter, he has history of palpitation. Stayed in atrial flutter. I will start him on Multaq and oral anticoagulation and planning to do electrical cardioversion in the morning if he did not convert back to sinus rhythm on his own. We discussed the possibility of referral for EP evaluation and ablation (NEHA LEE APRN) Physical Exam Vital Signs Vital Signs - First Documented 04/03/23 11:14 Temp 37.6 Pulse 87 Resp 18 B/P (MAP) 136/62 (86) Pulse Ox 85 O2 Delivery Room Air O2 Flow Rate 2.00 (ALAN MAYFIELD MD) Vital Signs Capillary Refill : Less Than 3 Seconds (NEHA LEE APRN) Height, Weight, BMI Height: 6'0" Weight: 195lbs. 0.0oz. 88.495132ty; 27.17 BMI Method:Stated General Appearance: No Apparent Distress, WD/WN, Other (Appears tired) Neck: Normal Inspection, Supple Respiratory: Lungs Clear, Normal Breath Sounds, No Accessory Muscle Use, No Respiratory Distress Cardiovascular: Regular Rate, Rhythm, No Edema Extremity: Normal Inspection, Normal Range of Motion, No Pedal Edema Neurologic/Psychiatric: Alert, Normal Mood/Affect Skin: Normal Color, Warm/Dry (NEHA LEE APRN) Focused Exam Lactate Level 04/03/23 12:55: Lactic Acid Level 0.87 (ALAN MAYFIELD MD) Lactic Acid Level Laboratory Tests Test 04/03/23 12:55 Lactic Acid Level 0.87 MMOL/L (0.50-2.00) (ALAN MAYFIELD MD) Progress/Results/Core Measures Results/Orders Lab Results Laboratory Tests Test 04/03/23 11:20 04/03/23 12:55 Range/Units White Blood Count 10.5 4.3-11.0 10^3/uL Red Blood Count 3.60 L 4.30-5.52 10^6/uL Hemoglobin 10.5 L 13.3-17.7 g/dL Hematocrit 34 L 40-54 % Mean Corpuscular Volume 94 80-99 fL Mean Corpuscular Hemoglobin 29 25-34 pg Mean Corpuscular Hemoglobin Concent 31 L 32-36 g/dL Red Cell Distribution Width 16.1 H 10.0-14.5 % Platelet Count 187 130-400 10^3/uL Mean Platelet Volume 9.8 9.0-12.2 fL Immature Granulocyte % (Auto) 2 % Neutrophils (%) (Auto) 80 H 42-75 % Lymphocytes (%) (Auto) 8 L 12-44 % Monocytes (%) (Auto) 10 0-12 % Eosinophils (%) (Auto) 0 0-10 % Basophils (%) (Auto) 1 0-10 % Neutrophils # (Auto) 8.3 H 1.8-7.8 10^3/uL Lymphocytes # (Auto) 0.9 L 1.0-4.0 10^3/uL Monocytes # (Auto) 1.0 0.0-1.0 10^3/uL Eosinophils # (Auto) 0.0 0.0-0.3 10^3/uL Basophils # (Auto) 0.1 0.0-0.1 10^3/uL Immature Granulocyte # (Auto) 0.2 H 0.0-0.1 10^3/uL Prothrombin Time 27.4 H 12.2-14.7 SEC INR Comment 2.6 H 0.8-1.4 Activated Partial Thromboplast Time 63 H 24-35 SEC D-Dimer 1.20 H 0.00-0.49 UG/ML Sodium Level 134 L 135-145 MMOL/L Potassium Level 4.0 3.6-5.0 MMOL/L Chloride Level 102 98-107 MMOL/L Carbon Dioxide Level 14 L 21-32 MMOL/L Anion Gap 18 H 5-14 MMOL/L Blood Urea Nitrogen 26 H 7-18 MG/DL Creatinine 1.62 H 0.60-1.30 MG/DL Estimat Glomerular Filtration Rate 44 BUN/Creatinine Ratio 16 Glucose Level 113 H 70-105 MG/DL Calcium Level 9.2 8.5-10.1 MG/DL Corrected Calcium 9.5 8.5-10.1 MG/DL Magnesium Level 2.0 1.6-2.4 MG/DL Total Bilirubin 1.2 H 0.1-1.0 MG/DL Aspartate Amino Transf (AST/SGOT) 50 H 5-34 U/L Alanine Aminotransferase (ALT/SGPT) 64 H 0-55 U/L Alkaline Phosphatase 123 40-136 U/L B-Type Natriuretic Peptide 522.0 H <100.0 PG/ML Total Protein 6.7 6.4-8.2 GM/DL Albumin 3.6 3.2-4.5 GM/DL Lactic Acid Level 0.87 0.50-2.00 MMOL/L (ALAN MAYFIELD MD) Micro Results Microbiology 04/03/23 Blood Culture - Preliminary, Resulted No growth 04/03/23 Blood Culture - Preliminary, Resulted No growth (ALAN MAYFIELD MD) Vital Signs/I&O 04/03/23 04/03/23 04/03/23 11:14 11:15 13:49 Temp 37.6 36.5 Pulse 87 78 Resp 18 18 B/P (MAP) 136/62 (86) 100/87 Pulse Ox 85 94 O2 Delivery Room Air Nasal Cannula Nasal Cannula O2 Flow Rate 2.00 2.00 2.00 (ALAN MAYFIELD MD) Blood Pressure Mean: 86 Progress Progress Note : Progress Note Patient seen and evaluated, resting comfortably in bed, no acute distress. Based on exam and symptoms, differential diagnosis includes but is not limited to pneumonia, PE. Work-up initiated including CBC, CMP, coags, D-dimer, magnesium, chest x-ray, EKG. Chart review was also completed. 1248 Labs and x-ray reviewed. CBC shows normal white count 10.5, elevated neutrophil percentage 80. Hemoglobin decreased 10.5, hematocrit decreased 34. CBC shows decreased CO2 14, elevated anion gap of 18, BUN elevated 26, creatinine elevated 1.62, GFR decreased 44. Patient appears to have chronic kidney disease based on previous labs. BNP elevated 522. Coags show elevated PT 27.4, elevated INR 2.6, elevated APTT 63. D-dimer elevated 1.2. Chest x-ray shows patchy bibasilar infiltrates. CT angio chest ordered for PE rule out due to elevated D-dimer. IV fluids ordered due to contrast administration. Blood cultures x2, lactic acid ordered. Antibiotics ordered for pneumonia. 1322 CT reviewed. Negative for pulmonary embolism or aortic disease. Small bi lateral pleural effusions noted. Patchy bilateral pulmonary infiltrates also noted again. I called and spoke with Dr. Maher, hospitalist, for admission. He agrees to admit patient as inpatient for pneumonia and acute respiratory failure. He would like patient to go to the medical/surgical floor. All results have been discussed with patient and . (NEHA LEE APRN) Initial ECG Impression Date: Apr 03, 2023 Initial ECG Impression Time: 11:59 Initial ECG Rate: 85 Initial ECG Rhythm: Normal Sinus, PVC Initial ECG Intervals: QRS (162) Initial ECG Intervals Right bundle branch block Initial ECG Comparisson: Unchanged (NEHA LEE APRN) Diagnostic Imaging Diagonstic Imaging: Xray Plain Films/CT/US/NM/MRI: chest Comments [facility] [place], [place] NAME: LYNDON RICHARD [facility] REC#: [id number] PT STATUS: REG ER : 1950 PHYSICIAN: NEHA LEE APRN ADMIT DATE: 04/03/23/ER Draft Date of Exam:04/03/23 CHEST 1 VIEW, AP/PA ONLY Indication: Cough and fatigue. Time of Exam: 12:01 PM Correlation is made with prior chest from 03/19/2023. Heart size normal. Cardiac pacemaker remains in place. There appear to be patchy infiltrates in the bilateral lung bases. Mid and upper lung piper are clear. There is no effusion or pneumothorax. IMPRESSION: Patchy bibasilar infiltrates. Dictated on workstation # [id number] Dict: 04/03/23 1216 Trans: 04/03/23 1219 [facility] [id number] Interpreted by: FRANK PATTERSON MD Electronically signed by: Diagonstic Imaging: CT Plain Films/CT/US/NM/MRI: chest Comments [facility], [facility]. [place], [place] NAME: LYNDON RICHARD [facility] REC#: [id number] PT STATUS: REG ER : 1950 PHYSICIAN: NEHA LEE APRN ADMIT DATE: 04/03/23/ER Draft Date of Exam:04/03/23 CT ANGIO CHEST W (R/O PE) INDICATION: Hypoxia with elevated D-dimer. TECHNIQUE: After intravenous administration of contrast, thin section axial CT angiography of the chest was performed. 3D MIP reconstructions were made. All CT scans use one or more of the following dose optimizing techniques: automated exposure control, MA and/or KvP adjustment based on a patient size and exam type, or iterative reconstruction. COMPARISON: No prior studies are available for comparison. Evaluation of the pulmonary arterial system is without evidence of thromboembolism. No definite filling defects are seen within central, lobar and segmental branches. Thoracic aorta is normal caliber. There is no dissection. No pericardial fluid is identified. There are small bilateral pleural effusions. There are patchy groundglass and airspace infiltrates in the bilateral upper and lower lobes, likely on an infectious/inflammatory basis. Upper abdomen is unremarkable. IMPRESSION: 1. No evidence of pulmonary embolism or acute aortic disease. 2. Small bilateral pleural effusions. 3. Patchy bilateral pulmonary infiltrates, likely on an infectious/inflammatory basis. Dictated on workstation # [id number] Dict: 04/03/23 1254 Trans: 04/03/23 1302 [facility] [id number] Interpreted by: FRANK PATTERSON MD Electronically signed by: (NEHA LEE APRN) Departure Communication (Admissions) Time/Spoke to Admitting Phy: 13:22 Dr. Maher, hospitalist, see progress note. (NEHA LEE APRN) Impression Primary Impression: Pneumonia Qualified Codes: J18.9 - Pneumonia, unspecified organism Additional Impression: Acute respiratory failure Qualified Codes: J96.01 - Acute respiratory failure with hypoxia Disposition: ADMITTED INPATIENT Condition: Stable Admissions Decision to Admit Reason: Admit from ER (General) Decision to Admit/Date: Apr 03, 2023 Time/Decision to Admit Time: 13:22 (NEHA LEE APRN) Departure-Patient Inst. Referrals: BREDNA FUENTES DO (PCP/Family) Primary Care Physician ATTENDING PHYSICIAN NOTE: I was physically present as attending physician in the emergency department during the care of this patient. I discussed this case in brief with Neha Lee NP. I did not personally interview or examine this patient, and I was not otherwise directly involved in the decision making or delivery of care for this patient. (ALAN MAYFIELD MD) NEHA LEE APRN Apr 03, 2023 11:52 ALAN MAYFIELD MD Apr 05, 2023 07:27
[2023-04-03 12:00] LABS: BASOPHILS # (AUTO) 0.1 10^3/uL (0.0-0.1); BASOPHILS % (AUTO) 1 % (0-10); EOSINOPHILS % (AUTO) 0 % (0-10); HEMATOCRIT 34 % (40-54); HEMOGLOBIN 10.5 g/dL (13.3-17.7); LYMPHOCYTES # (AUTO) 0.9 10^3/uL (1.0-4.0); LYMPHOCYTES % (AUTO) 8 % (12-44); MEAN CORPUSCULAR HEMOGLOBIN 29 pg (25-34); MEAN CORPUSCULAR HGB CONC 31 g/dL (32-36); MEAN CORPUSCULAR VOLUME 94 fL (80-99); MEAN PLATELET VOLUME 9.8 fL (9.0-12.2); MONOCYTES % (AUTO) 10 % (0-12); NEUTROPHILS # (AUTO) 8.3 10^3/uL (1.8-7.8); NEUTROPHILS % (AUTO) 80 % (42-75); PLATELET COUNT 187 10^3/uL (130-400); WHITE BLOOD COUNT 10.5 10^3/uL (4.3-11.0)
[2023-04-03 12:03] LABS: ALBUMIN 3.6 GM/DL (3.2-4.5)
[2023-04-03 12:04] LABS: CALCIUM 9.2 MG/DL (8.5-10.1)
[2023-04-03 12:05] LABS: TOTAL PROTEIN 6.7 GM/DL (6.4-8.2)
[2023-04-03 12:07] LABS: BILIRUBIN,TOTAL 1.2 MG/DL (0.1-1.0); INR 2.6 (0.8-1.4); PROTHROMBIN TIME PATIENT 27.4 SEC (12.2-14.7)
[2023-04-03 12:09] LABS: CREATININE SERUM 1.62 MG/DL (0.60-1.30)
[2023-04-03 12:10] LABS: FIBRIN DEGRADATION PRODUCTS 1.2 UG/ML (0.00-0.49)
--- NOTE | 2023-04-03 12:20 | Diagnostic Imaging Report ---
Indication: Cough and fatigue. Time of Exam: 12:01 PM Correlation is made with prior chest from 03/19/2023. Heart size normal. Cardiac pacemaker remains in place. There appear to be patchy infiltrates in the bilateral lung bases. Mid and upper lung piper are clear. There is no effusion or pneumothorax. IMPRESSION: Patchy bibasilar infiltrates. Dictated by: Dictated on workstation # [id number]
[2023-04-03] MEDS ORDERED: NS IV 1000 ML 1,000 ML IV SCH (12:30)
[2023-04-03] MEDS ORDERED: HOLD METFORMIN - RECEIVED CONTRAST 20 ML VIAL IV SCH (12:45)
[2023-04-03] MEDS ORDERED: IOHEXOL 350 MG/ML 100 ML (OMNIPAQUE 350) VIAL IV ONE (12:45)
[2023-04-03] MEDS ORDERED: NS 100 ML (IVPB) BAG IV ONE (12:45)
[2023-04-03] MEDS ORDERED: AZITHROMYCIN INJECTION 500 MG in NS (IVPB) 250 ML 250 ML IV ONE (13:00)
[2023-04-03] MEDS ORDERED: cefTRIAXone IV/IM 1,000 MG in NS (IVPB) 50 ML 50 ML IV ONE (13:00)
--- NOTE | 2023-04-03 13:03 | Diagnostic Imaging Report ---
INDICATION: Hypoxia with elevated D-dimer. TECHNIQUE: After intravenous administration of contrast, thin section axial CT angiography of the chest was performed. 3D MIP reconstructions were made. All CT scans use one or more of the following dose optimizing techniques: automated exposure control, MA and/or KvP adjustment based on a patient size and exam type, or iterative reconstruction. COMPARISON: No prior studies are available for comparison. Evaluation of the pulmonary arterial system is without evidence of thromboembolism. No definite filling defects are seen within central, lobar and segmental branches. Thoracic aorta is normal caliber. There is no dissection. No pericardial fluid is identified. There are small bilateral pleural effusions. There are patchy groundglass and airspace infiltrates in the bilateral upper and lower lobes, likely on an infectious/inflammatory basis. Upper abdomen is unremarkable. IMPRESSION: 1. No evidence of pulmonary embolism or acute aortic disease. 2. Small bilateral pleural effusions. 3. Patchy bilateral pulmonary infiltrates, likely on an infectious/inflammatory basis. Dictated by: Dictated on workstation # [id number]
[2023-04-03] MEDS ORDERED: MILK OF MAGNESIA 400 MG/5 ML 30 ML UDC PO PRN (14:00)
[2023-04-03] MEDS ORDERED: BISACODYL 10 MG SUPPOSITORY PR PRN (14:00)
[2023-04-03] MEDS ORDERED: ANTACID SUSP 30 ML UDC (MYLANTA) PO PRN (14:00)
[2023-04-03] MEDS ORDERED: ONDANSETRON 4 MG/2 ML (SDV) Z0FRAN IV PRN (14:00)
[2023-04-03] MEDS ORDERED: ONDANSETRON 4 MG (ZOFRAN) ORAL DISSOLVE TAB PO PRN (14:00)
[2023-04-03] MEDS ORDERED: ACETAMINOPHEN 325 MG TABLET PO PRN (14:00)
[2023-04-03] MEDS ORDERED: CALCIUM CARBONATE 500 MG CHEW TABLET PO PRN (14:00)
[2023-04-03] MEDS ORDERED: polyethylene glycoL POWDER 17 GM (MIRALAX) PACK PO PRN (14:00)
[2023-04-03] MEDS ORDERED: LACTULOSE SYRUP 10GM/15ML 30ML UDC PO PRN (14:00)
[2023-04-03] MEDS ORDERED: MELATONIN 3 MG TABLET PO PRN (14:00)
[2023-04-03] MEDS ORDERED: cefTRIAXone 1 GM/NS 50 ML IVPB IV ONE ×2 (14:15)
[2023-04-03 14:26] VITALS: BP 138/61
[2023-04-03] MEDS ORDERED: INSU100V5 SQ (14:44)
[2023-04-03] MEDS ORDERED: TMSL.4C PO (14:44)
[2023-04-03] MEDS ORDERED: FURO20TA4 PO (14:44)
[2023-04-03] MEDS ORDERED: NITR0.4T42 SL (14:44)
[2023-04-03] MEDS ORDERED: SUCR1TAB36 PO (14:44)
[2023-04-03] MEDS ORDERED: GBPN600T PO (14:44)
[2023-04-03] MEDS ORDERED: LIDO700A45 TP (14:44)
[2023-04-03] MEDS ORDERED: DIPH50CA33 PO (14:44)
[2023-04-03] MEDS ORDERED: ACHD5005 PO (14:44)
[2023-04-03] MEDS ORDERED: POTA10CA84 PO (14:44)
[2023-04-03] MEDS: NS IV 1000 ML 1,000 ML IV SCH ×3 (15:14→22:15)
[2023-04-03 15:19] VITALS: BP 138/61
[2023-04-03] MEDS: inSUlin ASPART 1 UNIT/0.01 ML (PER UNIT) SC SCH ×2 (16:00→20:17)
[2023-04-03] MEDS ORDERED: RT-Ipratropium/Albuterol NEB 3 ML VIAL INH PRN (16:00)
[2023-04-03 16:29] VITALS: BP 144/67
[2023-04-03] MEDS: GABAPENTIN 600 MG TABLET PO SCH (20:02)
[2023-04-03] MEDS: APIXABAN 5 MG TABLET PO SCH (20:02)
[2023-04-03] MEDS: DULoxetine 30 MG CAPSULE PO SCH (20:02)
[2023-04-03] MEDS: SENNOSIDES 8.6 MG (SENOKOT) TAB PO SCH (20:04)
[2023-04-03] MEDS: DOCUSATE SODIUM 100 MG CAPSULE PO SCH (20:05)
[2023-04-03] MEDS: DRONEDARONE 400 MG TABLET PO SCH (20:08)
[2023-04-03] MEDS: HYDROcodone/ACETAMINOPHEN 5 MG/325 MG TABLET PO PRN ×2 (20:12→23:55)
[2023-04-03 20:13] VITALS: BP 143/66
[2023-04-03] MEDS: RT-Ipratropium/Albuterol NEB 3 ML VIAL INH SCH (20:23)
[2023-04-03 23:20] VITALS: BP 131/60
[2023-04-04 04:45] VITALS: BP 135/62
[2023-04-04] MEDS: inSUlin ASPART 1 UNIT/0.01 ML (PER UNIT) SC SCH ×6 (05:09→20:25)
[2023-04-04 05:58] LABS: BASOPHILS % (AUTO) 1 % (0-10); EOSINOPHILS # (AUTO) 0.1 10^3/uL (0.0-0.3); EOSINOPHILS % (AUTO) 2 % (0-10); HEMATOCRIT 30 % (40-54); HEMOGLOBIN 9.6 g/dL (13.3-17.7); LYMPHOCYTES # (AUTO) 0.7 10^3/uL (1.0-4.0); LYMPHOCYTES % (AUTO) 10 % (12-44); MEAN CORPUSCULAR HEMOGLOBIN 29 pg (25-34); MEAN CORPUSCULAR HGB CONC 32 g/dL (32-36); MEAN CORPUSCULAR VOLUME 91 fL (80-99); MEAN PLATELET VOLUME 9.5 fL (9.0-12.2); MONOCYTES # (AUTO) 0.8 10^3/uL (0.0-1.0); MONOCYTES % (AUTO) 12 % (0-12); NEUTROPHILS # (AUTO) 4.9 10^3/uL (1.8-7.8); NEUTROPHILS % (AUTO) 73 % (42-75); PLATELET COUNT 162 10^3/uL (130-400); WHITE BLOOD COUNT 6.6 10^3/uL (4.3-11.0)
[2023-04-04] MEDS: NS IV 1000 ML 1,000 ML IV SCH ×3 (06:13→20:23)
[2023-04-04 06:22] LABS: ALBUMIN 3.2 GM/DL (3.2-4.5); BILIRUBIN,TOTAL 0.8 MG/DL (0.1-1.0); CALCIUM 8.6 MG/DL (8.5-10.1); CREATININE SERUM 1.36 MG/DL (0.60-1.30); POTASSIUM 3.8 MMOL/L (3.6-5.0); TOTAL PROTEIN 5.8 GM/DL (6.4-8.2)
[2023-04-04] MEDS: DOCUSATE SODIUM 100 MG CAPSULE PO SCH ×2 (07:52→20:46)
[2023-04-04] MEDS: SENNOSIDES 8.6 MG (SENOKOT) TAB PO SCH ×2 (07:53→20:46)
[2023-04-04 07:55] VITALS: BP 166/75
[2023-04-04] MEDS: RT-Ipratropium/Albuterol NEB 3 ML VIAL INH SCH ×2 (08:13→21:40)
[2023-04-04] MEDS: DRONEDARONE 400 MG TABLET PO SCH ×2 (09:33→20:25)
[2023-04-04] MEDS: AZITHROMYCIN 250 MG TABLET PO SCH (09:34)
[2023-04-04] MEDS: PANTOPRAZOLE 40 MG (PROTONIX) TAB PO SCH (09:34)
[2023-04-04] MEDS: APIXABAN 5 MG TABLET PO SCH ×2 (09:34→20:24)
[2023-04-04] MEDS: DULoxetine 30 MG CAPSULE PO SCH ×2 (09:34→20:24)
[2023-04-04] MEDS: GABAPENTIN 600 MG TABLET PO SCH ×2 (09:34→20:24)
[2023-04-04 11:47] VITALS: BP 174/80
[2023-04-04] MEDS: cefTRIAXone INJECTION 2,000 MG in NS (IVPB) 50 ML 50 ML IV SCH (13:35)
[2023-04-04] MEDS: SIMETHICONE 80 MG (MYLICON) CHEW PO PRN ×2 (13:41→20:44)
[2023-04-04 15:23] VITALS: BP 151/72
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
[2023-04-04] MEDS ORDERED: TAMSULOSIN 0.4 MG (FLOMAX) CAP PO SCH (18:00)
[2023-04-04 19:12] VITALS: BP 160/72
[2023-04-04] MEDS: guaiFENesin 600 MG TABLET PO SCH (20:25)
[2023-04-04] MEDS ORDERED: inSUlin DETERMIR 1 UNIT/0.01 ML (CHARGE PER UNIT) SQ SCH (21:00)
[2023-04-04 23:03] VITALS: BP 119/71
[2023-04-05 03:23] VITALS: BP 152/68
[2023-04-05 05:48] LABS: BASOPHILS % (AUTO) 1 % (0-10); EOSINOPHILS # (AUTO) 0.3 10^3/uL (0.0-0.3); EOSINOPHILS % (AUTO) 6 % (0-10); HEMATOCRIT 31 % (40-54); HEMOGLOBIN 9.9 g/dL (13.3-17.7); LYMPHOCYTES # (AUTO) 0.6 10^3/uL (1.0-4.0); LYMPHOCYTES % (AUTO) 10 % (12-44); MEAN CORPUSCULAR HEMOGLOBIN 29 pg (25-34); MEAN CORPUSCULAR HGB CONC 32 g/dL (32-36); MEAN CORPUSCULAR VOLUME 91 fL (80-99); MEAN PLATELET VOLUME 9.7 fL (9.0-12.2); MONOCYTES # (AUTO) 0.5 10^3/uL (0.0-1.0); MONOCYTES % (AUTO) 9 % (0-12); NEUTROPHILS # (AUTO) 4.2 10^3/uL (1.8-7.8); NEUTROPHILS % (AUTO) 72 % (42-75); PLATELET COUNT 191 10^3/uL (130-400); WHITE BLOOD COUNT 5.8 10^3/uL (4.3-11.0)
[2023-04-05] MEDS: NS IV 1000 ML 1,000 ML IV SCH (06:00)
[2023-04-05 06:09] LABS: ALBUMIN 3.2 GM/DL (3.2-4.5); BILIRUBIN,TOTAL 0.6 MG/DL (0.1-1.0); CALCIUM 8.7 MG/DL (8.5-10.1); CREATININE SERUM 1.02 MG/DL (0.60-1.30); POTASSIUM 3.8 MMOL/L (3.6-5.0)
[2023-04-05] MEDS: inSUlin ASPART 1 UNIT/0.01 ML (PER UNIT) SC SCH ×4 (06:09→11:53)
[2023-04-05 07:32] VITALS: BP 183/83
[2023-04-05] MEDS: SENNOSIDES 8.6 MG (SENOKOT) TAB PO SCH (08:16)
[2023-04-05] MEDS: DOCUSATE SODIUM 100 MG CAPSULE PO SCH (08:16)
[2023-04-05] MEDS: RT-Ipratropium/Albuterol NEB 3 ML VIAL INH SCH (08:26)
[2023-04-05] MEDS: PANTOPRAZOLE 40 MG (PROTONIX) TAB PO SCH (08:38)
[2023-04-05] MEDS: APIXABAN 5 MG TABLET PO SCH (08:38)
[2023-04-05] MEDS: AZITHROMYCIN 250 MG TABLET PO SCH (08:38)
[2023-04-05] MEDS: DULoxetine 30 MG CAPSULE PO SCH (08:38)
[2023-04-05] MEDS: DRONEDARONE 400 MG TABLET PO SCH (08:38)
[2023-04-05] MEDS: guaiFENesin 600 MG TABLET PO SCH (08:38)
[2023-04-05] MEDS: GABAPENTIN 600 MG TABLET PO SCH (08:38)
[2023-04-05] MEDS ORDERED: carvediloL 12.5 MG TABLET PO ONE (09:30)
[2023-04-05 11:40] VITALS: BP 173/80
[2023-04-05] MEDS ORDERED: CARV12.53 PO (11:50)
[2023-04-05] MEDS ORDERED: AMOX1TAB12 PO (11:50)
[2023-04-05] MEDS: cefTRIAXone INJECTION 2,000 MG in NS (IVPB) 50 ML 50 ML IV SCH (12:01)
--- NOTE | 2023-04-05 14:27 | Discharge Summary ---
Discharge Summary Hospital Course Problems/Dx: (1) Pneumonia Status: Acute Qualifiers: Qualified Codes: J18.9 - Pneumonia, unspecified organism (2) Acute respiratory failure Status: Acute Qualifiers: Qualified Codes: J96.01 - Acute respiratory failure with hypoxia (3) Acute kidney injury superimposed on chronic kidney disease Status: Acute (4) IDDM (insulin dependent diabetes mellitus) Status: Acute Hospital Course Date of Admission: Apr 03, 2023 at 14:07 Admission Diagnosis : Acute respiratory failure with hypoxia due to pneumonia Family Physician/Provider: Brenda Fuentes DO Date of Discharge: 04/05/23 Discharge Diagnosis: Acute respiratory failure with hypoxia due to pneumonia Hospital Course: Denilson Zayas is a 73 year old male who was admitted with pneumonia. He had a CT which showed bilateral pneumonia. He was treated with IV antibiotics. He was hypoxic and required supplemental oxygen. He was dehydrated and had KAYE on CKD which improved with fluid resuscitation. He was given an antibiotic to complete at home. He was set up with home oxygen 2 L continuously and 3 L with exertion. He was discharged home in stable condition. He should follow up with Dr. Fuentes in about a week. Labs and Pending Lab Test: Laboratory Tests 04/05/23 05:40: White Blood Count 5.8, Red Blood Count 3.44L, Hemoglobin 9.9L, Hematocrit 31L, Mean Corpuscular Volume 91, Mean Corpuscular Hemoglobin 29, Mean Corpuscular Hemoglobin Concent 32, Red Cell Distribution Width 16.3H, Platelet Count 191, Mean Platelet Volume 9.7, Immature Granulocyte % (Auto) 3, Neutrophils (%) (Auto) 72, Lymphocytes (%) (Auto) 10L, Monocytes (%) (Auto) 9, Eosinophils (%) (Auto) 6, Basophils (%) (Auto) 1, Neutrophils # (Auto) 4.2, Lymphocytes # (Auto) 0.6L, Monocytes # (Auto) 0.5, Eosinophils # (Auto) 0.3, Basophils # (Auto) 0.0, Immature Granulocyte # (Auto) 0.2H, Sodium Level 139, Potassium Level 3.8, Chloride Level 111H, Carbon Dioxide Level 14L, Anion Gap 14, Blood Urea Nitrogen 15, Creatinine 1.02, Estimat Glomerular Filtration Rate 77, BUN/Creatinine Ratio 15, Glucose Level 105, Calcium Level 8.7, Corrected Calcium 9.3, Total Bilirubin 0.6, Aspartate Amino Transf (AST/SGOT) 31, Alanine Aminotransferase (ALT/SGPT) 40, Alkaline Phosphatase 89, Total Protein 6.0L, Albumin 3.2 Microbiology 04/03/23 Gram Stain - Final, Complete 04/03/23 Sputum Culture - Final, Complete Usual upper respiratory paras 04/03/23 Blood Culture - Preliminary, Resulted No growth Home Meds Active Amox Tr-K Clv 875-125 mg Tab (Amoxicillin/Potassium Clav) 875 Mg-125 Mg Tablet 1 Each PO BID 7 Days Carvedilol 12.5 Mg Tablet 12.5 Mg PO BID 30 Days Reported Diphenhydramine HCl 50 Mg Capsule 50 Mg PO HS Flomax (Tamsulosin HCl) 0.4 Mg Cap 0.8 Mg PO DAILY Carafate (Sucralfate) 1 Gram Tablet 1 Gm PO BIDAC Potassium Chloride 10 Meq Capsule.er 10 Meq PO DAILY Nitroglycerin 0.4 Mg Tab.subl 0.4 Mg SL PRN Lidocaine 5% Patch (Lidocaine) 5 % Adh..patch 2 Each TP DAILY PRN MDD 2 2 patches max for 12 hours, then 12 hours patch-free period. Levemir (Insulin Determir) 100 Unit/Ml Soln 42 Units SQ HS Hydrocodone-Acetamin 5-325 mg (Hydrocodone/Acetaminophen) 5 Mg-325 Mg Tablet 1 Tab PO Q6H PRN Gabapentin 600 Mg Tablet 1,200 Mg PO BID Furosemide 20 Mg Tablet 20 Mg PO DAILY Tizanidine HCl 4 Mg Tablet 2 Mg PO TID PRN TAKES OF A 4MG TAB [place] 3 Fish Oil Softgel ([place]-3 Fatty Acids/Fish Oil) 684 Mg-1,200 Mg Capsule.dr 1 Each PO BID Ventolin Hfa (Albuterol Sulfate) 1 Puff Puff 2 Puff INH Q4H PRN Ozempic (Semaglutide) 1 Mg/0.75 Ml (4 Mg/3 Ml) Pen.injctr 1 Mg SQ TUES Multaq (Dronedarone HCl) 400 Mg Tablet 400 Mg PO BID Novolog Flexpen (Insulin Aspart) 100 Unit/Ml (3 Ml) Solution 12 Units SQ 0800,1200 Biotin 10,000 Mcg Capsule 10,000 Mcg PO BID Multivitamin 1 Each Tablet 1 Each PO DAILY Atorvastatin Calcium 20 Mg Tablet 20 Mg PO EVENING Loratadine 10 Mg Tablet 10 Mg PO DAILY Finasteride 5 Mg Tablet 5 Mg PO HS Duloxetine HCl 60 Mg Capsule.dr 120 Mg PO DAILY TAKES 2 OF THE 60 MG TABLETS DAILY Jardiance (Empagliflozin) 25 Mg Tablet 25 Mg PO DAILY Pantoprazole Sodium 40 Mg Tablet.dr 40 Mg PO BID Eliquis (Apixaban) 5 Mg Tablet 5 Mg PO BID Assessment/Pt Instructions See instructions Discharge Planning: >30 minutes discharge planning Discharge Instructions Discharge Diet: Low Sodium Diet Activity as Tolerated: Yes Discharge Physical Examination Vital Signs Vital Signs Date Time Temp Pulse Resp B/P (MAP) Pulse Ox O2 Delivery O2 Flow Rate FiO2 04/05/23 11:40 36.6 90 18 173/80 (111) 96 Nasal Cannula 2.00 General Appearance: No Apparent Distress, WD/WN Respiratory: Lungs Clear, No Respiratory Distress Cardiovascular: Regular Rate, Rhythm, No Murmur Gastrointestinal: Normal Bowel Sounds, Soft Extremity: Normal Inspection, No Pedal Edema Skin: Normal Color, Warm/Dry Neurologic/Psychiatric: Alert, Normal Mood/Affect Allergies: Coded Allergies: No Known Drug Allergies (Verified , 02/09/17) Copy Copies To 1: BRENDA FUENTES DO Discharge Summary Date of Admission Apr 03, 2023 at 14:07 Date of Discharge Apr 05, 2023 at 14:11 Discharge Date: Apr 05, 2023 Discharge Time: 14:11 Admission Diagnosis Pneumonia Discharge Diagnosis Pneumonia Acute respiratory failure with hypoxia KAYE on CKD 3 T2DM AFib BPH GERD HLD CAD (1) Pneumonia Status: Acute Qualifiers: Qualified Codes: J18.9 - Pneumonia, unspecified organism (2) Acute respiratory failure Status: Acute Qualifiers: Qualified Codes: J96.01 - Acute respiratory failure with hypoxia (3) Acute kidney injury superimposed on chronic kidney disease Status: Acute (4) IDDM (insulin dependent diabetes mellitus) Status: Acute TOM HARDEN MD Apr 05, 2023 14:27
[2023-04-05] MEDS ORDERED: carvediloL 12.5 MG TABLET PO SCH (21:00)
== END 2023-04-05 14:11 | disposition home or self-care (01) | DRG 193 ==
LOC: EDUNIT# 11:08 → ER 11:10 → 4TH 14:07
PROVIDERS: ADMIT Internal Medicine; ATTEND Internal Medicine
DX: J18.9 Pneumonia, unspecified organism (principal); J96.01 Acute respiratory failure with hypoxia; N17.9 Acute kidney failure, unspecified; I48.92 Unspecified atrial flutter; I12.9 Hypertensive chronic kidney disease with stage 1 through stage 4 chronic kidney disease, or unspecified chronic kidney disease; E11.22 Type 2 diabetes mellitus with diabetic chronic kidney disease; N18.30 Chronic kidney disease, stage 3 unspecified; E86.0 Dehydration; I45.10 Unspecified right bundle-branch block; I48.91 Unspecified atrial fibrillation; I25.10 Atherosclerotic heart disease of native coronary artery without angina pectoris; N40.0 Benign prostatic hyperplasia without lower urinary tract symptoms; K21.9 Gastro-esophageal reflux disease without esophagitis; E78.00 Pure hypercholesterolemia, unspecified; E11.40 Type 2 diabetes mellitus with diabetic neuropathy, unspecified; M19.90 Unspecified osteoarthritis, unspecified site; H54.3 Unqualified visual loss, both eyes; H91.93 Unspecified hearing loss, bilateral; F41.9 Anxiety disorder, unspecified; F43.10 Post-traumatic stress disorder, unspecified; Z79.4 Long term (current) use of insulin; Z79.84 Long term (current) use of oral hypoglycemic drugs; Z79.85 Long-term (current) use of injectable non-insulin antidiabetic drugs; Z79.01 Long term (current) use of anticoagulants; Z95.0 Presence of cardiac pacemaker; Z97.4 Presence of external hearing-aid; Z79.899 Other long term (current) drug therapy; Z28.310 Unvaccinated for COVID-19; Z28.9 Immunization not carried out for unspecified reason
CPT/HCPCS: 36415; 71045; 71275; 80053; 82947; 83605; 83735; 83880; 85025; 85379; 85610; 85730; 87040; 87070; 87205; 93005; 93041; 94640; 94664; 94760; 94761; 96374; 96375

== ENCOUNTER → 2023-05-07 | Outpatient (CLI) | payer MEDICARE ==
[~2023-05-07] MED LIST changes: +AMOX1TAB12 PO; +CARV12.53 PO; +DIPH50CA33 PO; +FURO20TA4 PO; +NITR0.4T42 SL; +POTA10CA84 PO; +SUCR1TAB36 PO
--- NOTE | 2023-05-07 14:03 | Diagnostic Imaging Report ---
INDICATION: Chest pain, lower respiratory infection. EXAMINATION: PA and lateral chest. FINDINGS: Heart size and pulmonary vascularity are normal. Lungs are clear. There are no effusions or pneumothoraces. There is a dual-chamber pacemaker. IMPRESSION: No acute abnormalities in the chest. Dictated by: Dictated on workstation # [id number]
== END ==
LOC: RAD 12:50
PROVIDERS: ATTEND Family Medicine
DX: R05.9 Cough, unspecified (principal); R07.9 Chest pain, unspecified
CPT/HCPCS: 71046

== ENCOUNTER → 2023-07-30 | Outpatient (CLI) | payer MEDICARE ==
--- NOTE | 2023-07-30 13:26 | Diagnostic Imaging Report ---
EXAMINATION: Right knee radiographs, 3 views. COMPARISON: None. HISTORY: 73-year-old male, chronic right knee pain. FINDINGS: The patient is status post anterior cruciate ligament reconstruction. There is chondrocalcinosis. There are small patellofemoral compartment osteophytes without pronounced joint space loss. There is a small knee joint effusion. There is no identified acute fracture. IMPRESSION: 1. Mild patellofemoral compartment osteoarthritis with small right knee joint effusion. 2. Chondrocalcinosis which has multiple associations including advanced age and calcium pyrophosphate dihydrate deposition disease. Dictated by: Dictated on workstation # [id number]
--- NOTE | 2023-07-30 16:12 | Diagnostic Imaging Report ---
EXAMINATION: Lumbar spine radiographs, 3 views. COMPARISON: None. HISTORY: 73-year-old male, lumbar radiculopathy. FINDINGS: There are five lumbar-type vertebral bodies. There is severe disc height loss at L5-S1. There is mild disc height loss at L4-L5. There is no identified compression deformity or fracture. There are facet degenerative changes at L4-L5 and L5-S1. The sacroiliac joints are unremarkable. There are atherosclerotic calcifications. IMPRESSION: 1. Disc and facet degenerative changes of the lumbar spine most notable at L5-S1 and L4-L5. 2. No identified compression deformity or fracture. Dictated by: Dictated on workstation # [id number]
== END ==
LOC: RAD 12:34
PROVIDERS: ATTEND Family Medicine
DX: M17.11 Unilateral primary osteoarthritis, right knee (principal); M25.461 Effusion, right knee; M11.261 Other chondrocalcinosis, right knee; M47.26 Other spondylosis with radiculopathy, lumbar region; M47.27 Other spondylosis with radiculopathy, lumbosacral region
CPT/HCPCS: 72100; 73562